=== PATIENT | male | born 1955 | race Caucasian/White ===

== ENCOUNTER 2023-05-30 18:35 | Emergency (ER) | payer OTHER, SELFPAY ==
--- NOTE | ~2023-05-30 | CT_ITS ---
EXAMINATION: CT cervical spine wo con DATE: 05/30/2023 20:07 INDICATION: fall head injury TECHNIQUE: Computed tomography (CT) of the cervical spine was performed without intravenous contrast. Automated exposure control and iterative reconstruction technique were employed. The dose-length pro duct was 317.30 mGy-cm. COMPARISON: None. FINDINGS: Vertebral Body Alignment: Intact. Craniocervical and atlantoaxial alignment: Moderate degenerative change. Alignment intact. Osseous structures/fracture: No evidence of a lytic or blastic process in the visualized spine. No e vidence of acute fracture. Trace left mastoid fluid, no erosion or fracture. Cervical soft tissues: The paraspinal soft tissues planes are maintained. Biapical pleural scarring. Degenerative changes: Degenerative changes, without severe neural foraminal or central canal narrowin g. IMPRESSION: No acute fracture or traumatic malalignment in the cervical spine. Reviewed, dictated and finalized at location K.
--- NOTE | ~2023-05-30 | CT_ITS ---
EXAMINATION: CT brain wo con DATE: 05/30/2023 20:02 INDICATION: head injury . TECHNIQUE: Computed tomography (CT) of the head was performed without intravenous contrast. The mA wa s adjusted according to patient size. Iterative reconstruction technique was employed. The dose-lengt h product was 605.33 mGy-cm. COMPARISON: None. FINDINGS: No acute intracranial hemorrhage or extra-axial fluid collection. No hydrocephalus, mass, or herniation. No acute ischemic infarct. Unremarkable dural venous sinus attenuation. No acute osseous abnormality. Left frontal/orbital soft tissue laceration and contusion. Trace left mastoid opacification, the remaining aerated spaces are clear. Moderate atrophy and chronic white matter change. Atherosclerotic intracranial calcification. Focal l eft caudate head lacunar infarct. Large old left MCA territory infarct. IMPRESSION: No acute intracranial process. Reviewed, dictated and finalized at location K.
[2023-05-30 18:31] VITALS: BP 144/82; PULSE 68; RESP 20; TEMP 36.5; O2SAT 100
[2023-05-30] MEDS: TETANUS,DIPHTHERIA,AC PERTUSSIS ADULT (0.5 ML) BOOSTRIX IM (19:52)
--- NOTE | 2023-05-30 21:30 | ED.GENADULT ---
HPI - General Adult General Chief complaint: Fall Stated complaint: fall, head lac Time Seen by Provider: 05/30/23 19:27 History of Present Illness HPI narrative: Patient 61-year-old gentleman who presents the emergency department with chief complaint of head injury. Patient was being facilitated in his wheelchair and fell striking his head. They report no loss of consciousness but the patient is on enoxaparin and Plavix patient is unsure of last tetanus status Related Data Home Medications Medication Instructions Recorded Confirmed acetaminophen 325 mg tablet 325 mg PO ONCE PRN Pain 05/30/23 05/30/23 citalopram 20 mg tablet (Celexa) 20 mg PO DAILY 05/30/23 05/30/23 clopidogrel 75 mg tablet 75 mg PO DAILY 05/30/23 05/30/23 enoxaparin 40 mg/0.4 mL 40 mg subcut DAILY 05/30/23 05/30/23 subcutaneous syringe ergocalciferol (vitamin D2) 1,250 1,250 mcg PO WEEKLY 05/30/23 05/30/23 mcg (50,000 unit) capsule (Drisdol) metoprolol succinate 25 mg 25 mg PO DAILY 05/30/23 05/30/23 tablet,extended release 24 hr rosuvastatin 40 mg tablet 40 mg PO DAILY 05/30/23 05/30/23 Allergies Allergy/AdvReac Type Severity Reaction Status Date / Time banana Allergy Hives Verified 05/30/23 18:57 No Known Drug Allergies AdvReac Unknown Verified 05/30/23 18:57 Review of Systems Review of Systems: A 10 system review of systems was completed on the patient and is negative except for what is stated in the HPI. Nursing and ancillary documentation was reviewed. Exam Narrative: GENERAL: Well-appearing, well-nourished, and in no acute distress. HEAD: Normocephalic, 3 superior laceration to the left eyebrow. EYES: PERRLA and EOMI. ENT: Nares clear, no rhinorrhea or epistaxis. Mucous membranes moist. NECK: Supple. CHEST: Clear to auscultation. No respiratory distress. HEART: Regular rate and rhythm. No murmur heard. Normal peripheral pulses. ABDOMEN: Soft, nontender, nondistended, normal active bowel sounds. EXTREMITIES: Normal range of motion. No edema. SKIN: Warm, dry, no rash. NEURO: No focal deficits. Alert and oriented x3. PSYCH: Normal mood and affect. Course Vital Signs Vital signs: Vital Signs Temperature 36.5 C 05/30/23 18:31 Pulse Rate 68 05/30/23 18:31 Respiratory Rate 20 05/30/23 18:31 Blood Pressure 144/82 H 05/30/23 18:31 Pulse Oximetry 100 05/30/23 18:31 Temperature 36.5 C 05/30/23 18:31 Pulse Rate 68 05/30/23 18:31 Respiratory Rate 20 05/30/23 18:31 Blood Pressure 144/82 H 05/30/23 18:31 Pulse Oximetry 100 05/30/23 18:31 Procedures Laceration Laceration 1: Date: 05/30/23 Time: 21:35 Site: face (Left eyebrow) Size (cm): 3 Description: linear Depth: simple, single layer Local Anesthetic: lidocaine 1% Amount of anesthesia used (mL): 5 Pre-repair: wound explored, irrigated and irrigated extensively ====== Skin Level ====== Skin layer closed with: prolene Size (cm): 5-0 Number of sutures: 7 Technique: simple, interrupted ====== Subcutaneous Layer ====== ====== Muscle Layer ====== ====== Tendon Layer ====== Medical Decision Making [facility] Narrative Medical decision making narrative: Differential diagnosis includes intracranial hemorrhage, cervical spine fracture, facial laceration CT head showed no evidence of intracranial trauma. CT C-spine showed no evidence of cervical spine fracture. The patient's lacerations were closed [facility] Vital Signs Vital Signs: Vital Signs Temperature 36.5 C 05/30/23 18:31 Pulse Rate 68 05/30/23 18:31 Respiratory Rate 20 05/30/23 18:31 Blood Pressure 144/82 H 05/30/23 18:31 Pulse Oximetry 100 05/30/23 18:31 Temperature 36.5 C 05/30/23 18:31 Pulse Rate 68 05/30/23 18:31 Respiratory Rate 20 05/30/23 18:31 Blood Pressure 144/82 H 05/30/23 18:31 P
[2023-05-31 00:27] VITALS: BP 140/84; PULSE 82; RESP 15; O2SAT 98
== END 2023-05-31 00:29 ==
PROVIDERS: Emergency Provider Emergency Medicine; PCP Hospitalist
DX: S01.91XA Laceration without foreign body of unspecified part of head, initial encounter (principal); Z79.01 Long term (current) use of anticoagulants; Z23 Encounter for immunization; W05.0XXA Fall from non-moving wheelchair, initial encounter
CPT/HCPCS: 12011; 70450; 72125; 90471; 90715; 99284

== ENCOUNTER 2023-06-10 12:21 | Emergency (ER) | payer OTHER, SELFPAY ==
[2023-06-10] VITALS (20 sets, daily range): BP systolic 126–150; BP diastolic 69–88; PULSE 81–113; RESP 17–23; TEMP 36.6; O2SAT 95–98
--- NOTE | ~2023-06-10 | CT_ITS ---
EXAMINATION: CT brain wo con DATE: 06/10/2023 13:06 INDICATION: Head injury TECHNIQUE: Computed tomography (CT) of the head was performed without intravenous contrast. Sagittal and coronal reconstructions were performed. The mA was adjusted according to patient size. Iterative reconstruction technique was employed. The dose-length product was 605.33 mGy-cm. COMPARISON: head CT dated 05/30/2023 FINDINGS: No fracture. Again seen is a large region of encephalomalacia involving the majority the left tempora l lobe extending to the left frontoparietal region consistent with sequela of chronic infarct in the left middle cerebral artery vascular distribution. No acute intracranial hemorrhage, acute infarction or abnormal extra axial fluid collection. Ventricles are normal and symmetric. No mass/mass effect. The orbits, paranasal sinuses and mastoid air cells are normal. IMPRESSION: 1. No acute intracranial process. 2. Stable appearance of a large region of encephalomalacia consistent with chronic infarct involving majority the left temporal lobe in the vascular displacement of the left middle cerebral artery. Reviewed, dictated and finalized at location A. IMPRESSION: 1. No acute intracranial process. 2. Stable appearance of a large region of encephalomalacia consistent with washer machine heath infarct involving majority the left temporal lobe in the vascular displacem ent of the left middle cerebral artery.
--- NOTE | ~2023-06-10 | XR_ITS ---
XR chest 2V DATE: 06/10/2023 13:11 INDICATION: Cough TECHNIQUE: AP and lateral views COMPARISON: None FINDINGS: Left anterior chest registered nurse cardiac device. Heart size is likely within normal range. There is mild aortic calcification and unfolding. No hilar or mediastinal enlargement. No pulmonary infiltrate or consolidation, pleural effusion or pulmonary vascular congestion or pneumo thorax is detected. Degenerative spurring of the thoracic spine. IMPRESSION: No active cardiopulmonary disease Reviewed, dictated and finalized at location B.
--- NOTE | 2023-06-10 12:35 | ECG_ITS ---
Measurements Intervals [place] Rate: 110 P: 61 WA: 176 QRS: -36 QRSD: 97 T: 64 QT: 326 QTc: 443 Interpretive Statements SINUS TACHYCARDIA PREVIOUS iNFERIOR AND ANTEROSEPTAL MYOCARDIAL INFARCTION , OF INDETERMINATE AGE [40+ ms Q WAVE AND/OR ST/T ABNORMALITY IN II/aVF] ABNORMAL ECG NO PREVIOUS ECG AVAILABLE FOR COMPARISON Electronically Signed On 06-11-2023 11:48:58 CDT by Nilo Steel M.D.
[2023-06-10 12:55] LABS: Basophils Percent Auto 0.1 % (0.2-1.2); Eosinophils Percent Auto 0.2 % (0-4.4); Hematocrit 40.2 % (42.0-52.0); Hemoglobin 13.4 g/dL (14.0-18.0); Immature Granulocyte Absolute 0.03 K/mm3 (0.00-0.031); Immature Granulocyte Percent A 0.3 % (0-0.5); Lymphocytes Absolute Auto 1.07 K/mm3 (0.9-3.2); Mean Corpuscular HGB Conc 33.3 g/dl (32-36); Mean Corpuscular Hemoglobin 30.5 pg (26-34); Mean Corpuscular Volume 91.4 fl (80-100); Mean Platelet Volume 9.3 fl (7.4-10.4); Monocytes Absolute Auto 1.2 K/mm3 (0.1-0.6); Monocytes Percent Auto 10.1 % (2.6-8.5); Neutrophils Absolute Auto 9.6 K/mm3 (1.3-6.7); Neutrophils Percent Auto 80.3 % (45.5-73.1); Platelet Count Result 268 k/mm3 (150-375); Red Cell Distribution Width 13.1 % (11.5-14.5)
[2023-06-10 12:58] LABS: Appearance Urine Cloudy (Clear); Bacteria Urine None Seen /hpf; Bilirubin Urine Negative (Negative); Blood Urine 3+ (Negative); Color Urine Yellow (Yellow); Glucose Urine UA Negative (Negative); Ketones Urine Negative (Negative); Leukocyte Esterase Ur Negative LEU/UL (Negative); Nitrate Urine Negative (Negative); Protein Urine 2+ mg/dL (Negative); RBC Urine 51-100 /hpf (0-2); Specific Grav Ur 1.023 (1.001-1.035); Squamous Epithelial Cell Urine None seen /hpf (Few); WBC Urine 0-5 /hpf; pH Urine 6.5 (5.0-9.0)
[2023-06-10 12:59] LABS: Add Urine Microscopic? YES
[2023-06-10 13:01] LABS: Alanine Aminotransferase 20 U/L (6-50); Albumin Level 3.7 g/dL (3.5-5.1); Alkaline Phosphatase 72 U/L (38-126); Anion Gap 10 mmol/L (8-16); Aspartate Amino Transferase 22 U/L (17-59); Bilirubin,Total 0.8 mg/dL (0.2-1.3); Blood Urea Nitrogen 25 mg/dL (9-20); Calcium 9.2 mg/dL (8.4-10.2); Carbon Dioxide 26 mmol/L (22-30); Chloride 99 mmol/L (98-107); Estimated CRCL calculation 50 ml/min; Estimated Glomerular Filt Rate 55; Glucose 169 mg/dL (65-110); Potassium 3.9 mmol/L (3.4-5.0); Sodium 135 mmol/L (137-145)
--- NOTE | 2023-06-10 14:24 | ED.FALL ---
HPI - Fall General Chief Complaint: Fall Stated Complaint: fall Time Seen by Provider: 06/10/23 13:31 History of Present Illness HPI Narrative: Patient is a 67-year-old male presenting after a fall. Patient resides at a nursing facility. He has been falling frequently lately. Today he was noted to fall forward strike his head on a wall and then slide down to the ground. He was actually seen here last week after a similar fall and he still has the stitches above his eyebrow. Patient is ANO x1 at baseline per his facility. He denies complaints. He tells me he just wants to go home. Related Data Home Medications Medication Instructions Recorded Confirmed acetaminophen 325 mg tablet 325 mg PO ONCE PRN Pain 05/30/23 05/30/23 citalopram 20 mg tablet (Celexa) 20 mg PO DAILY 05/30/23 05/30/23 clopidogrel 75 mg tablet 75 mg PO DAILY 05/30/23 05/30/23 enoxaparin 40 mg/0.4 mL 40 mg subcut DAILY 05/30/23 05/30/23 subcutaneous syringe ergocalciferol (vitamin D2) 1,250 1,250 mcg PO WEEKLY 05/30/23 05/30/23 mcg (50,000 unit) capsule (Drisdol) metoprolol succinate 25 mg 25 mg PO DAILY 05/30/23 05/30/23 tablet,extended release 24 hr rosuvastatin 40 mg tablet 40 mg PO DAILY 05/30/23 05/30/23 Allergies Allergy/AdvReac Type Severity Reaction Status Date / Time banana Allergy Hives Verified 05/30/23 18:57 No Known Drug Allergies AdvReac Unknown Verified 05/30/23 18:57 Review of Systems Review of Systems: All systems reviewed & are unremarkable except as noted in HPI and below Exam Narrative: GENERAL: Lying in bed in no acute distress, cooperative HEAD: Normocephalic, healed incision above left eyebrow with sutures still in place, healing ecchymosis below left eye EYES: PERRLA and EOMI. ENT: Nares clear, no rhinorrhea or epistaxis. Mucous membranes dry NECK: Supple. CHEST: Clear to auscultation. No respiratory distress. HEART: Regular rate and rhythm ABDOMEN: Soft, nontender, nondistended EXTREMITIES: Normal range of motion. No edema. SKIN: Warm, dry, no rash. NEURO: No focal deficits. Alert and oriented x1. At baseline PSYCH: Normal mood Course Vital Signs Vital signs: Vital Signs Temperature 97.9 F 06/10/23 12:18 Pulse Rate 113 H 06/10/23 12:18 Respiratory Rate 21 H 06/10/23 12:18 Blood Pressure 133/88 06/10/23 12:18 Pulse Oximetry 98 06/10/23 12:18 Oxygen Delivery Room Air 06/10/23 12:18 Temperature 97.9 F 06/10/23 12:18 Pulse Rate 81 06/10/23 19:34 Respiratory Rate 18 06/10/23 19:34 Blood Pressure 150/86 H 06/10/23 19:34 Pulse Oximetry 98 06/10/23 19:34 Oxygen Delivery Room Air 06/10/23 12:18 MDM - Fall MDM Narrative Medical decision making narrative: Patient is a 67-year-old male presenting after a witnessed fall at his nursing facility. Patient is a bit tachycardic, otherwise vitals are within normal limits. Exam remarkable for the above. He does appear dry on exam. We will start some fluids, CT brain, basic labs. Blood work without significant abnormalities. Does appear dry on his labs as well. Fluids are ongoing. CT brain and chest x-ray without acute abnormalities. The sutures were removed at bedside. Patient's nursing facility was contacted and reports that he is at his baseline mental status. Given the reassuring work-up, feel he is safe for discharge for outpatient management. Appropriate return precautions given. Discharged in stable condition. Differential Diagnosis Differential diagnosis: Likely other (fall, closed head injury, dehydration) Medical Records Attestation: I reviewed the patient's medical records. Lab Data Attestation: I reviewed the patient's lab results. 06/10/23 12:37 06/10/23 12:37 Labs: Lab Results 06/10/23 06/10/23 Range/Units 12:37 15:12 WBC 12.0 H (4.5-10.0) K/mm3 RBC 4.40 L (4.6-6.20) M/mm3 Hgb 13.4 L (14.0-18.0) g/dL Hct 40.2 L (42.0-52.0) % MCV 91.4 (80-10
[2023-06-10] MEDS: SODIUM CHLORIDE 0.9% IV 1,000 ML 999 ML IV CONT (14:48)
[2023-06-10 15:57] LABS: Influenza A QL RT-PCR Negative (Negative); Influenza B QL RT-PCR Negative (Negative); SARS-CoV-2 RNA PCR Negative (Negative)
--- NOTE | 2023-06-10 17:23 | PC.NURSE ---
Attempted to call report to [facility] with no answer.
--- NOTE | 2023-06-10 17:39 | PC.NURSE ---
Spoke with Monica at [facility] and informed her that patient was being discharged back to facility.
== END 2023-06-10 19:48 ==
PROVIDERS: Emergency Medicine; Emergency Provider Emergency Medicine; PCP Hospitalist
DX: E86.0 Dehydration (principal); Z20.822 Contact with and (suspected) exposure to COVID-19; W19.XXXA Unspecified fall, initial encounter
CPT/HCPCS: 36415; 70450; 71046; 80053; 81001; 85025; 87636; 93005; 96360; 96361; 99284; J7030

== ENCOUNTER 2023-08-02 12:53 | Emergency (ER) | payer OTHER, SELFPAY ==
--- NOTE | ~2023-08-02 | CT_ITS ---
Non-contrast Head CT History: Status post fall COMPARISON: 06/10/2023 Technique: Axial non-contrast imaging of the brain was performed. Dose reduction technique was used on this scan by utilizing automated exposure control and iterative reconstruction technique. The dose -length product (DLP) was 605.33 mGy-cm. Findings: There is no evidence of intracranial hemorrhage, mass lesion, or acute infarct. Large left MCA distribution chronic infarct is unchanged. The ventricles and subarachnoid spaces are normal in size. The calvarium appears normal. The visualized paranasal sinuses and mastoid air cells are tony ar. Impression: No acute abnormality seen. Stable large chronic left MCA distribution infarct. Reviewed, dictated and finalized at location . Impression: No acute abnormality seen. Stable large chronic left MCA distribution infarct.
--- NOTE | ~2023-08-02 | CT_ITS ---
EXAMINATION: CT cervical spine wo con DATE: 08/02/2023 13:31 INDICATION: Fall. TECHNIQUE: Computed tomography (CT) of the cervical spine was performed without intravenous contrast. Automated exposure control and iterative reconstruction technique were employed. Exam dose: 385.79 mGy-cm total exam DLP. COMPARISON: None FINDINGS: There is reversal of cervical curvature which may be due to muscle spasm and/or positioning . Mild levoscoliosis. C1 and C2 are normally aligned and the odontoid process is intact. No fracture or dislocation or lock ed facet or prevertebral soft tissue swelling. Mild degenerative disc disease and C3-4 and C4-5. Moderately severe degenerative disc disease at C5-6 and C6-7 including moderately prominent posterior spurring at C5-6. There is prominent degenerative change at numerous apophyseal joints. Prominent uncovertebral joint spurring at C5-6 and C6-7. IMPRESSION: Reversal of cervical curvature mild levoscoliosis Prominent cervical spondylosis No fracture or dislocation or locked facet Reviewed, dictated and finalized at Location A. Reviewed, dictated and finalized at location B.
--- NOTE | ~2023-08-02 | XR_ITS ---
XR hip BI 2V w AP pelvis DATE: 08/02/2023 13:38 INDICATION: Recent fall. Injury. TECHNIQUE: AP pelvis. AP and lateral views of each hip. COMPARISON: None FINDINGS: Normal alignment at the pubic symphysis and sacroiliac joints. No pelvic fracture or bone d estruction. Hip joint spaces are symmetric and well preserved. No fracture, dislocation, avascular necrosis or kristian ne destruction of either hip is detected. IMPRESSION: Negative Reviewed, dictated and finalized at location B. IMPRESSION: Negative
[2023-08-02 12:56] VITALS: BP 112/75; PULSE 99; RESP 20; TEMP 36.7; O2SAT 99
[2023-08-02 14:51] VITALS: BP 114/84; PULSE 97; RESP 16; TEMP 36.7; O2SAT 100
--- NOTE | 2023-08-02 15:45 | PC.NURSE ---
pt requested that I call pt NETO Francois @[phone] to request him to come here. called @[phone] with no answer and no voicemail set up to leave a message.
--- NOTE | 2023-08-02 16:12 | ED.FALL ---
HPI - Fall General Chief Complaint: Fall Stated Complaint: ground level fall Time Seen by Provider: 08/02/23 16:11 History of Present Illness HPI Narrative: Patient is a 67-year-old male who is alert and oriented x2 at baseline here after reported fall. Patient states that he fell, does not remember any of the details. Per nursing patient had a fall with head injury complaining of some right hip pain. Patient currently states that both of his hips hurt, is unsure about anything else. He is currently requesting to be discharged home. He denies any pain anywhere other than his hips. Related Data Home Medications Medication Instructions Recorded Confirmed acetaminophen 325 mg tablet 325 mg PO ONCE PRN Pain 05/30/23 05/30/23 citalopram 20 mg tablet (Celexa) 20 mg PO DAILY 05/30/23 05/30/23 clopidogrel 75 mg tablet 75 mg PO DAILY 05/30/23 05/30/23 enoxaparin 40 mg/0.4 mL 40 mg subcut DAILY 05/30/23 05/30/23 subcutaneous syringe ergocalciferol (vitamin D2) 1,250 1,250 mcg PO WEEKLY 05/30/23 05/30/23 mcg (50,000 unit) capsule (Drisdol) metoprolol succinate 25 mg 25 mg PO DAILY 05/30/23 05/30/23 tablet,extended release 24 hr rosuvastatin 40 mg tablet 40 mg PO DAILY 05/30/23 05/30/23 Allergies Allergy/AdvReac Type Severity Reaction Status Date / Time banana Allergy Hives Verified 05/30/23 18:57 No Known Drug Allergies AdvReac Unknown Verified 05/30/23 18:57 Review of Systems Review of Systems: ROS unobtainable: Yes unobtainable due to mental status (dementia) Exam Narrative: GENERAL: Well-appearing, well-nourished, and in no acute distress. HEAD: Normocephalic, atraumatic. EYES: PERRLA and EOMI. ENT: Nares clear. Mucous membranes moist. NECK: Supple. No midline c-spine tenderness CHEST: Clear to auscultation. No respiratory distress. No chest wall tenderness HEART: Regular rate and rhythm. Normal peripheral pulses. ABDOMEN: Soft, nontender, nondistended. EXTREMITIES: Normal range of motion. No edema. No midline thoracic or lumbar tenderness. Bilateral hip tenderness with normal ROM. Remainder of upper and lower extremities atraumatic. SKIN: Warm, dry, no rash. NEURO: No focal deficits. Alert and oriented x2 PSYCH: flat affect Course Course Emergency Course: Chart review performed. Patient here with a fall. He reportedly tested covid positive on 07/31. Triage vitals normal. Triage workup shows stable left MCA, no acute abnormalities seen. CT c-spine negative. Hip xrays negative. Patient seen evaluated, in no acute distress. With poor historian, physical exam only positive for bilateral hip tenderness however he has full range of motion and normal PMS distal to the injury. Discussed normal workup. He is requesting be discharged home. Believe he is stable to be returned to his facility at this time. Nursing will work on transportation. Vital Signs Vital signs: Vital Signs Temperature 98.1 F 08/02/23 12:56 Pulse Rate 99 08/02/23 12:56 Respiratory Rate 20 08/02/23 12:56 Blood Pressure 112/75 08/02/23 12:56 Pulse Oximetry 99 08/02/23 12:56 Temperature 98.0 F 08/02/23 14:51 Pulse Rate 79 08/02/23 16:45 Respiratory Rate 16 08/02/23 16:45 Blood Pressure 119/78 08/02/23 16:45 Pulse Oximetry 100 08/02/23 16:45 MDM - Fall Imaging Data Radiologist's impression: XR hip BI 2V w AP pelvis DATE: 08/02/2023 13:38 INDICATION: Recent fall. Injury.? TECHNIQUE: AP pelvis. AP and lateral views of each hip.? COMPARISON: None? FINDINGS: Normal alignment at the pubic symphysis and sacroiliac joints. No pelvic fracture or bone destruction. Hip joint spaces are symmetric and well preserved. No fracture, dislocation, avascular necrosis or bone destruction of either hip is detected.? IMPRESSION: Negative? Reviewed, dictated and finalized at location B. Electronically signed by Rosendo Murphy M.D. on
[2023-08-02 16:45] VITALS: BP 119/78; PULSE 79; RESP 16; O2SAT 100
--- NOTE | 2023-08-02 16:59 | PC.NURSE ---
called [facility] @[phone] and spoke to Iona who is caring for pt to give update, report, and eta back to facility. all questions answered.
[2023-08-02 18:35] VITALS: BP 111/75; PULSE 67; RESP 15; TEMP 36.7; O2SAT 100
[2023-08-02 20:49] VITALS: BP 118/80; PULSE 61; RESP 16; TEMP 36.8; O2SAT 100
== END 2023-08-02 20:31 ==
PROVIDERS: Emergency Provider Student in an Organized Health Care Education/Training Program; PCP Hospitalist
DX: M25.552 Pain in left hip (principal); M25.551 Pain in right hip; S09.90XA Unspecified injury of head, initial encounter; W19.XXXA Unspecified fall, initial encounter; Z79.02 Long term (current) use of antithrombotics/antiplatelets
CPT/HCPCS: 70450; 72125; 73521; 99284

== ENCOUNTER 2023-10-30 08:17 | Inpatient (IN) | payer MEDICARE, SELFPAY ==
[2023-10-30] VITALS (28 sets, daily range): BP systolic 101–117; BP diastolic 71–79; PULSE 72–115; RESP 7–26; TEMP 36.3–36.8; O2SAT 96–100
--- NOTE | ~2023-10-30 | XR_ITS ---
EXAMINATION: XR chest 1V portable DATE: 10/30/2023 11:02 INDICATION: Seizures TECHNIQUE: frontal view of the chest was obtained. COMPARISON: Chest radiograph dated 06/10/2023 FINDINGS: The lungs are clear with no focal airspace opacities, pulmonary edema, pleural effusion or pneumothor ax. The cardiomediastinal silhouette is normal. Left pectoral implantable residential monitor. IMPRESSION: 1. No acute cardiopulmonary disease. Reviewed, dictated and finalized at location A. FITTER APPRENTICE
--- NOTE | ~2023-10-30 | CT_ITS ---
EXAMINATION: CTA brain carotid DATE: 11/01/2023 14:55 INDICATION: Acute infarct in left caudate nucleus. TECHNIQUE: Computed tomographic angiography (CTA) of the head was performed without and with 100 mL O mnipaque-350 intravenous contrast. CTA of the neck was performed with intravenous contrast. Automated exposure control and iterative reconstruction technique were employed. The dose-length product was 1 967.38 mGy-cm. Maximum intensity projection and volume rendered 3D-reconstructions were created by maxx lane technologist on a separate workstation. COMPARISON: Head CT 10/30/2023, brain MRI 11/01/2023 FINDINGS: HEAD CTA: There is an old infarct involving left frontotemporal parietal region, left insula, left in ternal capsule, and the left basal ganglia. There is no intracranial hemorrhage, acute infarction, or abnormal intracranial mass lesion. There is ex vacuo dilatation of body of left lateral ventricle. T here is mild mucosal thickening in the ethmoid sinuses. The orbits are normal. There is a trace right mastoid effusion. There is cerumen in left external auditory canal. Left vertebral artery is dominan t. There is no significant stenosis of basilar artery or the posterior cerebral arteries. Right poste rior communicating artery is normal. A left posterior communicating artery is not identified. There i s no significant stenosis of the intracranial internal carotid arteries or anterior or middle cerebra l arteries. Anterior communicating artery is normal. There is no aneurysm. NECK CTA: There is mild scarring at the lung apices. There are no pathologically enlarged lymph nodes . There is no significant stenosis of the vertebral arteries. There is plaque in the proximal interna l carotid arteries. There is 0% stenosis of the proximal right internal carotid artery relative to no rmal distal artery lumen diameter (NASCET criteria). There is 0% stenosis of the proximal left photography intern al carotid artery relative to normal distal artery lumen diameter. There is severe cervical spondylos is. IMPRESSION: 1. Large old infarct in the expected distribution of left middle cerebral artery. 2. No aneurysm or significant intracranial arterial stenosis. 3. 0% stenosis of the proximal internal carotid arteries relative to normal distal artery lumen diame ters (NASCET criteria). Reviewed, dictated and finalized at location E. FACTURING ENGINEERING MANAGER IMPRESSION: 1. Large old infarct in the expected distribution of left middle cerebral arter y. 2. No aneurysm or significant intracranial arterial stenosis. 3. 0% stenosis of the proximal internal carotid arteries relative to normal dis susy artery lumen diameters (NASCET criteria).
--- NOTE | ~2023-10-30 | CT_ITS ---
EXAMINATION: CT brain wo con DATE: 10/30/2023 09:44 INDICATION: Seizure. History of cerebrovascular accident. TECHNIQUE: Computed tomography (CT) of the head was performed without intravenous contrast. The mA wa s adjusted according to patient size. Iterative reconstruction technique was employed. Exam dose: 60 5.33 mGy-cm total exam DLP. COMPARISON: 08/02/2023 CT brain FINDINGS: Large chronic area of encephalomalacia within the left middle cerebral artery distribution consistent with old infarct. Bilateral carotid siphon internal carotid artery calcifications. No intracranial mass lesion or hemorrhage, midline shift or mass effect. No recent cerebrovascular ac cident is detected. No subdural or epidural hematoma. There is moderate cerebral volume loss. The paranasal sinuses and mastoid air cells are unremarkable. No fracture or bone destruction of the cranial vault. IMPRESSION: Stable large chronic left middle cerebral artery territory infarct No acute intracranial finding or significant change since 08/02/2023 Reviewed, dictated and finalized at Location A. Reviewed, dictated and finalized at location B. TY AND OCCUPATIONAL HEALTH MANAGER
--- NOTE | ~2023-10-30 | MR_ITS ---
EXAMINATION: MR brain/brain stem wo/w con DATE: 11/01/2023 08:45 INDICATION: Seizure. TECHNIQUE: Magnetic resonance imaging (MRI) of the brain and brainstem was performed without and with 14 mL MultiHance intravenous contrast. COMPARISON: Head CT 10/30/2023 FINDINGS: There is an old infarct involving left frontotemporal parietal region, left insula, left in ternal capsule, and left basal ganglia with old blood products. There is an acute infarct involving t he left caudate nucleus. There is chronic Wallerian degeneration involving the left-sided corticospin al tracts in the brainstem. There is no abnormal mass lesion. There is mild ex vacuo dilatation of le ft lateral ventricle. There is mild mucosal thickening in the ethmoid sinuses. The orbits are normal. There are trace mastoid effusions. IMPRESSION: 1. Acute infarct involving the left caudate nucleus. 2. Old infarct involving the left frontotemporal parietal region, left insula, left internal capsule, and left basal ganglia. Reviewed, dictated and finalized at location E. PRESIDENT SALES
--- NOTE | 2023-10-30 08:22 | ECG_ITS ---
Measurements Intervals [place] Rate: 112 P: 65 ID: [id number] QRS: -56 QRSD: 92 T: 69 QT: 345 QTc: 473 Interpretive Statements SINUS TACHYCARDIA LEFT AXIS DEVIATION BORDERLINE R WAVE PROGRESSION, ANTERIOR LEADS INFERIOR INFARCT, AGE INDETERMINATE BASELINE WANDER- I, III, AVL ABNORMAL ECG COMPARED TO ECG 06/10/2023 12:25:06 NO SIGNIFICANT CHANGES Electronically Signed On 10-30-2023 8:29:50 HYBRID TECHNOLOGIST by Donnell Roman D.O.
[2023-10-30 08:39] LABS: Basophils Percent Auto 0.3 % (0.2-1.2); Eosinophils Absolute Auto 0.2 K/mm3 (0-0.3); Eosinophils Percent Auto 2.2 % (0-4.4); Hematocrit 48.6 % (42.0-52.0); Hemoglobin 15.4 g/dL (14.0-18.0); Immature Granulocyte Absolute 0.02 K/mm3 (0.00-0.031); Immature Granulocyte Percent A 0.3 % (0-0.5); Lymphocytes Absolute Auto 2.91 K/mm3 (0.9-3.2); Lymphocytes Percent Auto 38.4 % (18.3-44.2); Mean Corpuscular HGB Conc 31.7 g/dl (32-36); Mean Corpuscular Hemoglobin 29.6 pg (26-34); Mean Corpuscular Volume 93.5 fl (80-100); Mean Platelet Volume 9.2 fl (7.4-10.4); Monocytes Absolute Auto 0.7 K/mm3 (0.1-0.6); Neutrophils Absolute Auto 3.8 K/mm3 (1.3-6.7); Neutrophils Percent Auto 49.8 % (45.5-73.1); Platelet Count Result 290 k/mm3 (150-375); White Blood Count 7.6 K/mm3 (4.5-10.0)
--- NOTE | 2023-10-30 08:44 | ED.SEIZURE ---
HPI - Seizure General Chief Complaint: Seizure Stated Complaint: postictal Time Seen by Provider: 10/30/23 08:43 History of Present Illness HPI Narrative: Patient is a 68-year-old female who presents to the emergency department this morning from her extended care facility after a seizure episode. Per EMS report, patient does have a known history of seizure disorder. [facility] this time that patient was applied blood bubbles with her mouth. Upon EMS arrival, they did note small amount of dried blood around the patient's mouth. The remainder of the history of present illness and review of systems limited secondary to the patient's current postictal state. Related Data Home Medications Medication Instructions Recorded Confirmed acetaminophen 325 mg tablet 325 mg PO ONCE PRN Pain 05/30/23 05/30/23 citalopram 20 mg tablet (Celexa) 20 mg PO DAILY 05/30/23 05/30/23 clopidogrel 75 mg tablet 75 mg PO DAILY 05/30/23 05/30/23 enoxaparin 40 mg/0.4 mL 40 mg subcut DAILY 05/30/23 05/30/23 subcutaneous syringe ergocalciferol (vitamin D2) 1,250 1,250 mcg PO WEEKLY 05/30/23 05/30/23 mcg (50,000 unit) capsule (Drisdol) metoprolol succinate 25 mg 25 mg PO DAILY 05/30/23 05/30/23 tablet,extended release 24 hr rosuvastatin 40 mg tablet 40 mg PO DAILY 05/30/23 05/30/23 Allergies Allergy/AdvReac Type Severity Reaction Status Date / Time banana Allergy Hives Verified 10/30/23 08:37 Review of Systems Review of Systems: Unable to obtain full review of systems secondary to the patient's current postictal state. Exam Narrative: General: Postictal, afebrile, in no acute distress. HEENT: PERRL, no rhinorrhea, no post nasal drip, oropharynx clear, small tongue puncture wound. Neck: Trachea midline, no JVD, no lymphadenopathy. Cardiovascular: Tachycardic with regular rhythm, no murmurs, rubs or gallops, no peripheral edema. Respiratory: Clear to auscultation bilaterally, no tachypnea, no wheezing, no rhonchi, no rubs, no respiratory distress. Abdomen: Soft, nontender, nondistended, no rebound, no guarding, no peritoneal signs. Musculoskeletal: No joint swelling or deformity, normal muscle tone. Skin: No rashes or petechia, no signs of infection. Neurological: Postictal, baseline A&O x1 per [facility] staff, unable to assess neurological exam at this time. Course Vital Signs Vital signs: Vital Signs Temperature 98.3 F 10/30/23 08:16 Pulse Rate 115 H 10/30/23 08:16 Respiratory Rate 19 10/30/23 08:16 Blood Pressure 117/74 10/30/23 08:16 Pulse Oximetry 98 10/30/23 08:16 Oxygen Delivery Room Air 10/30/23 08:16 Temperature 97.8 F 10/30/23 10:44 Pulse Rate 94 10/30/23 10:44 Respiratory Rate 18 10/30/23 10:44 Blood Pressure 108/71 10/30/23 10:44 Pulse Oximetry 96 10/30/23 10:44 Oxygen Delivery Room Air 10/30/23 08:22 MDM - Seizure MDM Narrative Medical decision making narrative: The patient was evaluated by myself in the emergency department. History is obtained from EMS and physical exam was performed. External medical records were reviewed at this time. IV was established and pertinent tests were ordered. Patient's brother, Alessandro, did present to the emergency department and did inform me that he does not believe that the patient has a history of a seizure disorder. Patient is more around this time, following my commands and answering my questions. Brother states that patient is back to his normal baseline. Patient was administered 1g of IV Keppra at this time. EKG was obtained which revealed sinus tachycardia rate of 112 beats per minute. No ST changes, T wave inversions or evidence of acute ischemia. EKG was independently interpreted by me and is currently pending official cardiology read. Laboratory results obtained revealing no acute process. Magnesium level currently pending. Imaging studies obtained included CT brain without IV contrast which was independently
[2023-10-30] MEDS: levETIRAcetam 1000MG/NACL100ML 1,000 MG/100 ML BAG 400 MG IVPB (08:45)
[2023-10-30 08:51] LABS: Partial Thromboplastin Time 26.3 SECONDS (22.3-36.8)
[2023-10-30 09:08] LABS: Appearance Urine Clear (Clear); Bacteria Urine None Seen /hpf; Bilirubin Urine Negative (Negative); Blood Urine Trace (Negative); Color Urine Yellow (Yellow); Glucose Urine UA Negative (Negative); Ketones Urine Negative (Negative); Leukocyte Esterase Ur Negative LEU/UL (Negative); Nitrate Urine Negative (Negative); Protein Urine 1+ mg/dL (Negative); Specific Grav Ur 1.022 (1.001-1.035); Squamous Epithelial Cell Urine None seen /hpf (Few); Urobilinogen Urine 0.2 mg/dL (<2.0); WBC Urine 0-5 /hpf; pH Urine 5.5 (5.0-9.0)
[2023-10-30 09:09] LABS: Add Urine Microscopic? YES
[2023-10-30 09:12] LABS: Alanine Aminotransferase 32 U/L (6-50); Albumin Level 3.9 g/dL (3.5-5.1); Alkaline Phosphatase 57 U/L (38-126); Anion Gap 13 mmol/L (8-16); Aspartate Amino Transferase 32 U/L (17-59); Bilirubin,Total 0.7 mg/dL (0.2-1.3); Blood Urea Nitrogen 20 mg/dL (9-20); Calcium 9.1 mg/dL (8.4-10.2); Carbon Dioxide 20 mmol/L (22-30); Chloride 103 mmol/L (98-107); Estimated CRCL calculation 71 ml/min; Estimated Glomerular Filt Rate > 60; Glucose 153 mg/dL (65-110); Potassium 4.2 mmol/L (3.4-5.0); Sodium 136 mmol/L (137-145)
--- NOTE | 2023-10-30 09:36 | PC.NURSE ---
Pt to CT
[2023-10-30 11:34] LABS: Magnesium 2.2 mg/dL (1.6-2.3)
--- NOTE | 2023-10-30 12:41 | ADMGEN ---
This patient, Sidney Mcgill, was admitted to [facility] Surg Room 315-01. Patient/family oriented to hospital policies and general routines including ID bracelet, bed and alarms, visiting hours, pain management, procedures, bathroom and other care routines, personal items, smoking policy, room service/diet, and visiting hours. Information on how to activate the Rapid Response Team has been discussed. Patient/Family are encouraged to report perceived risks to care and to ask questions if they do not understand what they are told or what they should do.
--- NOTE | 2023-10-30 13:09 | PM.IMHP ---
H&P: HPI History of Present Illness Date/Time: 10/30/23 13:09 Chief Complaint: Seizure Narrative: 68 y/o M presents here with new onset seizures with PMH of CVA, anxiety/depression, RA, Alzheimer's, HTN, HLD, and vitamin D deficiency. Patient is currently residing at [facility]. He was found there this morning with blood in his mouth and increased alteration around 0730. Tranported here via EMS. Per review of paperwork from facility, patient does not have a medical history of seizures and is not currently on any medications for seizures. ED provider also discussed patient's medical history with the patient's brother, Alessandro, who also believed patient did not have a history. Patient is A/Ox1-2 at baseline with PMH of CVA and Alzheimer's. While in ED he returned to this baseline. Patient does not remember events. Is currently reporting fatigue, increased confusion, and R hand tenderness. No obvious signs of trauma to his right upper extremity or hand. Denies any recent illnesses. Denies any other pain. Confirmed history of CVA. Patient believes his RUE is weak at baseline. Additional history is limited due to patient's baseline mentation. ED work up showed WBC and Hgb WNL, mild hyponatremia with sodium of 136, creatinine of 0.9, initial glucose 118 and repeat 153. UA unremarkable. Head CT showed stable large chronic left middle cerebral artery territory infarct, otherwise no acute intracranial findings or significant changes since July of 2023. CXR also unremarkable. EKG showed no significant changes compared to prior in May of 2023. Review of Systems Review of Systems: limited, endorsed fatigue, increased confusion, right hand discomfort. All systems reviewed & are unremarkable except as noted in HPI and below ROS unobtainable: Yes unobtainable due to mental status PMFSH Past Medical History Medical History Alzheimer's dementia Anxiety and depression CVA (cerebral vascular accident) L middle cerebral artery Gait instability HLD (hyperlipidemia) HTN (hypertension) Muscle weakness Rheumatoid arthritis Vitamin D deficiency Social History Social History Social History: [facility] Currently DNR. Smoking status: Unknown if ever smoked Alcohol intake: unknown Substance use: unknown Spiritual care concerns: No Meds Home Medications and Allergies Home Medications Medication Instructions Recorded Confirmed Type acetaminophen 325 mg tablet See Rx Instructions .Route 05/30/23 10/30/23 History .COMPLEX PRN Pain citalopram 20 mg tablet (Celexa) 20 mg PO DAILY 05/30/23 10/30/23 History clopidogrel 75 mg tablet 75 mg PO DAILY 05/30/23 10/30/23 History enoxaparin 40 mg/0.4 mL 40 mg subcut DAILY 05/30/23 10/30/23 History subcutaneous syringe ergocalciferol (vitamin D2) 1,250 1,250 mcg PO WEEKLY 05/30/23 10/30/23 History mcg (50,000 unit) capsule (Drisdol) metoprolol succinate 25 mg 25 mg PO DAILY 05/30/23 10/30/23 History tablet,extended release 24 hr rosuvastatin 40 mg tablet 40 mg PO DAILY 05/30/23 10/30/23 History lorazepam 0.5 mg tablet 0.5 mg PO DAILY 10/30/23 10/30/23 History lorazepam 0.5 mg tablet 0.5 mg PO Q8-10H PRN Anxiety 10/30/23 10/30/23 History Allergies Allergy/AdvReac Type Severity Reaction Status Date / Time banana Allergy Hives Verified 10/30/23 12:50 Vital Signs Vital Signs - 24 hr 10/30/23 08:16 10/30/23 08:22 10/30/23 08:22 Temperature 98.3 F Pulse Rate 115 H 113 H Respiratory Rate 19 22 H Blood Pressure 117/74 Pulse Oximetry 98 100 Oxygen Delivery Room Air Room Air 10/30/23 08:30 10/30/23 08:31 10/30/23 08:45 Temperature Pulse Rate 108 H 109 H 95 Respiratory Rate 26 H 17 22 H Blood Pressure 105/76 Pulse Oximetry 99 99 98 Oxygen Delivery 10/30/23 09:00 10/30/23
[2023-10-30] MEDS: METOPROLOL SUCCINATE EXT REL 25 MG TABCR PO (16:09)
[2023-10-30] MEDS: ROSUVASTATIN 10 MG TABLET 40 MG PO (16:10)
[2023-10-30] MEDS: SODIUM CHLORIDE 0.9% IV 1,000 ML 100 ML IV CONT (16:10)
[2023-10-30] MEDS: CLOPIDOGREL BISULFATE 75 MG TABLET PO (16:10)
[2023-10-30] MEDS: CITALOPRAM HYDROBROMIDE 20 MG TABLET PO (16:10)
[2023-10-30 19:54] LABS: Influenza A QL RT-PCR Negative (Negative); Influenza B QL RT-PCR Negative (Negative); RSV RNA, RT-PCR Negative (Negative); SARS-CoV-2 RNA PCR Positive (Negative)
[2023-10-30] MEDS: ACETAMINOPHEN 325 MG TABLET 650 MG PO (20:40)
[2023-10-30] MEDS: LORazepam (*CRX) 0.5 MG TABLET PO (20:41)
[2023-10-30] MEDS: REMDESIVIR 200 MG/NS 250 ML 200 MG/250 ML BAG 250 MG IVPB (21:37)
[2023-10-31] VITALS (9 sets, daily range): BP systolic 96–107; BP diastolic 46–67; PULSE 54–73; RESP 12–16; TEMP 36.3–36.8; O2SAT 98–100
[2023-10-31] MEDS: ACETAMINOPHEN 325 MG TABLET 650 MG PO ×2 (05:32→16:37)
[2023-10-31 06:58] LABS: Basophils Percent Auto 0.2 % (0.2-1.2); Eosinophils Absolute Auto 0.1 K/mm3 (0-0.3); Eosinophils Percent Auto 1.9 % (0-4.4); Hemoglobin 13.7 g/dL (14.0-18.0); Immature Granulocyte Absolute 0.01 K/mm3 (0.00-0.031); Immature Granulocyte Percent A 0.2 % (0-0.5); Lymphocytes Absolute Auto 1.54 K/mm3 (0.9-3.2); Lymphocytes Percent Auto 28.7 % (18.3-44.2); Mean Corpuscular HGB Conc 32.6 g/dl (32-36); Mean Corpuscular Hemoglobin 29.7 pg (26-34); Mean Corpuscular Volume 91.1 fl (80-100); Mean Platelet Volume 9.3 fl (7.4-10.4); Monocytes Absolute Auto 0.6 K/mm3 (0.1-0.6); Monocytes Percent Auto 11.7 % (2.6-8.5); Neutrophils Absolute Auto 3.1 K/mm3 (1.3-6.7); Neutrophils Percent Auto 57.3 % (45.5-73.1); Platelet Count Result 232 k/mm3 (150-375); Red Blood Count 4.61 M/mm3 (4.6-6.20); Red Cell Distribution Width 12.9 % (11.5-14.5); White Blood Count 5.4 K/mm3 (4.5-10.0)
[2023-10-31 07:13] LABS: Alanine Aminotransferase 24 U/L (6-50); Albumin Level 3.5 g/dL (3.5-5.1); Alkaline Phosphatase 56 U/L (38-126); Anion Gap 6 mmol/L (8-16); Aspartate Amino Transferase 24 U/L (17-59); Bilirubin,Total 0.4 mg/dL (0.2-1.3); Blood Urea Nitrogen 19 mg/dL (9-20); Calcium 8.6 mg/dL (8.4-10.2); Carbon Dioxide 27 mmol/L (22-30); Chloride 105 mmol/L (98-107); Estimated CRCL calculation 79 ml/min; Estimated Glomerular Filt Rate > 60; Glucose 97 mg/dL (65-110); Magnesium 1.9 mg/dL (1.6-2.3); Potassium 3.8 mmol/L (3.4-5.0); Sodium 138 mmol/L (137-145)
[2023-10-31 07:34] LABS: Hemoglobin A1C 5.6 % (<5.7)
[2023-10-31 08:33] LABS: Free T4 Free Thyroxine Reflex 0.88 ng/dL (0.78-2.19)
[2023-10-31] MEDS: METOPROLOL SUCCINATE EXT REL 25 MG TABCR PO (09:12)
[2023-10-31] MEDS: CLOPIDOGREL BISULFATE 75 MG TABLET PO (09:12)
[2023-10-31] MEDS: LORazepam (*CRX) 0.5 MG TABLET PO (09:12)
[2023-10-31] MEDS: ROSUVASTATIN 10 MG TABLET 40 MG PO (09:12)
[2023-10-31] MEDS: CITALOPRAM HYDROBROMIDE 20 MG TABLET PO (09:12)
[2023-10-31] MEDS: ENOXAPARIN 40 MG/0.4 ML SYRINGE SUB-Q (09:16)
[2023-10-31 09:35] LABS: Total Triiodothyronine (T3) 1.17 NG/ML (0.97-1.69)
--- NOTE | 2023-10-31 09:39 | PM.IMPN ---
Progress Note: A&P Assessment and Plan (1) Generalized seizure: Code(s): R56.9 - Unspecified convulsions Status: Acute (2) HTN (hypertension): Qualifiers: Hypertension type: primary hypertension Qualified Code(s): I10 - Essential (primary) hypertension Code(s): I10 - Essential (primary) hypertension Status: Acute Plan 68 y/o M presents here with new onset seizures with PMH of CVA, anxiety/depression, RA, Alzheimer's, HTN, HLD, and vitamin D deficiency. Patient is currently residing at [facility]. He was found there with blood in his mouth and increased alteration around 0730. Tranported here via EMS. Per review of paperwork from facility, patient does not have a medical history of seizures and is not currently on any medications for seizures. ED provider also discussed patient's medical history with the patient's brother, Alessandro, who also believed patient did not have a history. Patient is A/Ox1-2 at baseline with PMH of CVA and Alzheimer's. While in ED he returned to this baseline. Patient does not remember events.? Denies any recent illnesses. Denies any other pain. Confirmed history of CVA. Patient believes his RUE is weak at baseline. Additional history is limited due to patient's baseline mentation. ED work up showed WBC and Hgb WNL, mild hyponatremia with sodium of 136, creatinine of 0.9, initial glucose 118 and repeat 153.? UA unremarkable.? Head CT showed stable large chronic left middle cerebral artery territory infarct, otherwise no acute intracranial findings or significant changes since July of 2023.? CXR also unremarkable.? EKG showed no significant changes compared to prior in May of 2023. (1) Generalized seizure: ?Code(s): R56.9 - Unspecified convulsions ?Status:?Acute ?Assessment and Plan: Head CT: Stable large chronic left middle cerebral artery territory infarct. No acute intracranial finding or significant change since 08/02/2023. CXR: no acute cardiopulmonary disease. EKG:? Sinus tachycardia, left axis deviation, borderline R-wave progression in anterior leads, inferior infarct age indeterminate, baseline wander, abnormal EKG however when compared to EKG in May of 2023 no significant changes. Patient back to baseline, A/Ox1-2. UA:? 1+ protein, 6-10 RBC.? Blood work unremarkable excluding mild hyponatremia with sodium of 136, AST and ALT within normal limits, magnesium within normal limits.? Keppra loaded with 1 G.? Neurology consulted, Denice MURPHY. EEG ordered. Awaiting further recommendations. Continue seizure precautions. DDx:? thyroid dysfunction, stroke, brain lesion/neoplasia. Less likely drug intoxication/withdrawal or infection.? Ruled out hypoxia, metabolic disturbances, electrolyte imbalances.? Monitor daily labs. Adding TSH, A1C and viral PCR. IV fluids started at 100 mL/hr of NS due to tacky oral mucosa/dry appearance and mild hyponatremia. assess daily for discontinuation.? No new medications 10/31 brain MRI with without contrast Seizure precaution, telemetry monitoring COVID-19 infection Chest x-ray showed no acute cardiopulmonary issues, remdesivir started. Patient has active seizure, although patient has no acute cardiopulmonary issues, remdesivir still warranted (2) HTN (hypertension): ?Qualifiers: ?Hypertension type:?primary hypertension? Qualified Code(s):?I10 - Essential (primary) hypertension ?Code(s): I10 - Essential (primary) hypertension ?Status:?Acute ?Assessment and Plan: chronic, stable. BP ranging from 101/78-117/74. Continuing home metoprolol.? Monitor. Subjective Date/time seen: 10/31/23 09:39 Interval history: I saw exam patient, patient is lethargic, patient is alert oriented. Patient denies headache, focal weakness, chest pain, palpitation, labs reviewed, Exam Narrative: GENERAL: Pleasant, in no acute distress. Well-nourished. - EYES: EOMI. Anicteric. - HENT: Moist
[2023-10-31] MEDS: SODIUM CHLORIDE 0.9% IV 1,000 ML 100 ML IV CONT ×2 (12:33→22:33)
[2023-10-31] MEDS: levETIRAcetam 1000MG/NACL100ML 1,000 MG/100 ML BAG 400 MG IVPB (20:51)
[2023-10-31] MEDS: REMDESIVIR 100 MG/NS 250 ML 100 MG/250 ML BAG 250 MG IVPB (21:30)
[2023-11-01] VITALS (10 sets, daily range): BP systolic 103–116; BP diastolic 63–74; PULSE 67–91; RESP 14–18; TEMP 36.6–37.4; O2SAT 98–100
--- NOTE | 2023-11-01 | ECHO_ITS ---
Patient Info Name: Sidney Mcgill Age: 68 years : 1955 Gender: Male Ht: 70 in Wt: 160 lbs BSA: 1.89 m2 HR: 90 bpm BP: 116 / 65 mmHg Heart Rhythm: Sinus Rhythm Technical Quality: Fair Exam Date: 11/01/2023 3:58 PM Exam Location: Echo Lab Patient Status: Inpatient Admit Date: 10/30/2023 Staff Ordering Physician: Fiona Stuart MD Electroplating Sales Representative: Rupinder Grewal RDCS Attending Provider: Huy Jhaveri MD Exam Type: CA echo doppler color flow Study Info Indications - acute stroke Complete two-dimensional, color flow and Doppler transthoracic echocardiogram is performed. Summary 1. Complete two-dimensional, color flow and Doppler transthoracic echocardiogram is performed. 2. Left ventricular chamber dimension is normal. 3. Left ventricular systolic function is normal, estimated at 65-70%. 4. The left ventricular diastolic function is grade I diastolic dysfunction. 5. E/e' 10 is mildly elevated. 6. There is moderate aortic valve sclerosis. Left Ventricle E/e' 10 is mildly elevated. Left ventricular chamber dimension is normal. Left ventricular systolic function is normal, estimated at 65-70%. The left ventricular diastolic function is grade I diastolic dysfunction. Right Ventricle Right ventricular chamber dimension is normal. Right ventricular systolic function is normal. Left Atria Left atrial chamber dimension is normal. Right Atria Right atrial chamber dimension is normal. Aortic Valve The aortic valve is trileaflet. There is moderate aortic valve sclerosis. There is no aortic valve stenosis. There is no aortic valve regurgitation. Pulmonic Valve There is no pulmonic regurgitation. Mitral Valve There is no mitral valve stenosis. There is no mitral valve regurgitation. Tricuspid Valve There is no tricuspid valve regurgitation. Pericardium/Pleural There is no pericardial effusion. Inferior Vena Cava Normal inferior vena cava with >50% collapse upon inspiration consistent with normal right atrial pressure, 5 mmHg. Aorta The aortic root size at the sinus of Valsalva is normal. Left Ventricular Outflow Tract Name Value Normal LVOT 2D LVOT Diameter 2.0 cm LVOT Doppler LVOT Peak Gradient 4 mmHg LVOT Mean Gradient 2 mmHg LVOT VTI 15 cm LVOT VTI/AV VTI Ratio 0.7 LVOT Stroke Volume 45 ml LVOT CO 4.2 l/min LVOT CI 2.2 l/min/m2 Pulmonic Valve Name Value Normal RVOT Doppler RVOT Peak Gradient 2 mmHg PV Doppler PV Peak Gradient 3 mmHg Mitral Valve Name Value Normal
--- NOTE | 2023-11-01 08:48 | PM.IMPN ---
Progress Note: A&P Assessment and Plan (1) Generalized seizure: Code(s): R56.9 - Unspecified convulsions Status: Acute (2) HTN (hypertension): Qualifiers: Hypertension type: primary hypertension Qualified Code(s): I10 - Essential (primary) hypertension Code(s): I10 - Essential (primary) hypertension Status: Acute (3) Acute CVA (cerebrovascular accident): Code(s): I63.9 - Cerebral infarction, unspecified Status: Acute (4) Seizure: Code(s): R56.9 - Unspecified convulsions Status: Acute (5) Dementia: Code(s): F03.90 - Unspecified dementia, unspecified severity, without behavioral disturbance, psychotic disturbance, mood disturbance, and anxiety Status: Acute Plan 68 y/o M presents here with new onset seizures with PMH of CVA, anxiety/depression, RA, Alzheimer's, HTN, HLD, and vitamin D deficiency. Patient is currently residing at [facility]. He was found there with blood in his mouth and increased alteration around 0730. Tranported here via EMS. Per review of paperwork from facility, patient does not have a medical history of seizures and is not currently on any medications for seizures. ED provider also discussed patient's medical history with the patient's brother, Alessandro, who also believed patient did not have a history. Patient is A/Ox1-2 at baseline with PMH of CVA and Alzheimer's. While in ED he returned to this baseline. Patient does not remember events.? Denies any recent illnesses. Denies any other pain. Confirmed history of CVA. Patient believes his RUE is weak at baseline. Additional history is limited due to patient's baseline mentation. ED work up showed WBC and Hgb WNL, mild hyponatremia with sodium of 136, creatinine of 0.9, initial glucose 118 and repeat 153.? UA unremarkable.? Head CT showed stable large chronic left middle cerebral artery territory infarct, otherwise no acute intracranial findings or significant changes since July of 2023.? CXR also unremarkable.? EKG showed no significant changes compared to prior in May of 2023. (Generalized seizure: ?Code(s): R56.9 - Unspecified convulsions ?Status:?Acute ?Assessment and Plan: Head CT: Stable large chronic left middle cerebral artery territory infarct. No acute intracranial finding or significant change since 08/02/2023. CXR: no acute cardiopulmonary disease. EKG:? Sinus tachycardia, left axis deviation, borderline R-wave progression in anterior leads, inferior infarct age indeterminate, baseline wander, abnormal EKG however when compared to EKG in May of 2023 no significant changes. Patient back to baseline, A/Ox1-2. UA:? 1+ protein, 6-10 RBC.? Blood work unremarkable excluding mild hyponatremia with sodium of 136, AST and ALT within normal limits, magnesium within normal limits.? Keppra loaded with 1 G.? Neurology consulted, Denice MURPHY. EEG ordered. Awaiting further recommendations. Continue seizure precautions. DDx:? thyroid dysfunction, stroke, brain lesion/neoplasia. Less likely drug intoxication/withdrawal or infection.? Ruled out hypoxia, metabolic disturbances, electrolyte imbalances.? Monitor daily labs. Adding TSH, A1C and viral PCR. IV fluids started at 100 mL/hr of NS due to tacky oral mucosa/dry appearance and mild hyponatremia. assess daily for discontinuation.? No new medications 10/31 I ordered brain MRI with without contrast Seizure precaution, telemetry monitoring 11/01: No seizure activity earlier diet, cardiac monitor technician shows no significant cardiac arrhythmia, MRI 1. Acute infarct involving the left caudate nucleus. 2. Old infarct involving the left frontotemporal parietal region, left insula, left internal capsule, and left basal ganglia. Neurologist consultation is appreciated, managements per neurologist COVID-19 infection Chest x-ray showed no acute cardiopulmonary issues, remdesivir started. Patient has active seizure, although patient
[2023-11-01] MEDS: CLOPIDOGREL BISULFATE 75 MG TABLET PO (08:52)
[2023-11-01] MEDS: CITALOPRAM HYDROBROMIDE 20 MG TABLET PO (08:52)
[2023-11-01] MEDS: ROSUVASTATIN 10 MG TABLET 40 MG PO (08:52)
[2023-11-01] MEDS: levETIRAcetam 1000MG/NACL100ML 1,000 MG/100 ML BAG 400 MG IVPB (08:52)
[2023-11-01] MEDS: METOPROLOL SUCCINATE EXT REL 25 MG TABCR PO (08:52)
[2023-11-01] MEDS: SODIUM CHLORIDE 0.9% IV 1,000 ML 100 ML IV CONT ×2 (08:53→22:00)
[2023-11-01] MEDS: ACETAMINOPHEN 325 MG TABLET 650 MG PO ×3 (08:53→22:00)
[2023-11-01] MEDS: LORazepam (*CRX) 0.5 MG TABLET PO ×2 (08:53→20:01)
[2023-11-01] MEDS: ENOXAPARIN 40 MG/0.4 ML SYRINGE SUB-Q (08:55)
--- NOTE | 2023-11-01 09:36 | WPDNEURCNPN ---
Assessment and Plan Assessment and plan (1) Seizure: Code(s): R56.9 - Unspecified convulsions Status: Acute (2) CVA (cerebral vascular accident): Code(s): I63.9 - Cerebral infarction, unspecified Status: Acute (3) HTN (hypertension): Qualifiers: Hypertension type: primary hypertension Qualified Code(s): I10 - Essential (primary) hypertension Code(s): I10 - Essential (primary) hypertension Status: Acute (4) Dementia: Code(s): F03.90 - Unspecified dementia, unspecified severity, without behavioral disturbance, psychotic disturbance, mood disturbance, and anxiety Status: Acute Plan Mr. Mcgill is a 68 year old male with a history of prior L MCA territory stroke and dementia presenting due to concerns for seizure. He was found altered with blood in his mouth. With the prior stroke, he is at high risk for seizures in the future. Therefore, anti-seizure medication should be initiated. Patient also found to have acute stroke in the L caudate. - Start Keppra 500mg BID - Routine EEG is ordered and pending - Obtain CTA brain/carotid - Check LDL and surface echocardiogram with bubble study - Continue Aspirin, Plavix, and Rosuvastatin for now Consult date: 11/01/23 HPI: Sidney Mcgill is a 68 year old male with a history of prior L MCA territory stroke, hypertension, cognitive deficit presenting for evaluation of seizure like activity. Patient lives in extended care facility. Patient was found with blood in his mouth with change in his mental status on 17 AM. Patient was brought to [place] ED. Initially there were reports that patient has a history of seizures. He does not take any anti-seizure medications. ED provider also discussed patient's history with his brother, who also reports that patient does not have a prior history of seizures as far as he knows. Patient is AOx1-2 at baseline. In the ED, he returned to his baseline. Patient does not have any recollection of the event that resulted in him being donaldo to the ED. His lab work was unrevealing. UA was not concerning for infection. CT head showed old L MCA territory infarct. MRI brain done this morning showed acute infarct in the L caudate. He has been normotensive during the admission. He already takes aspirin, Plavix, and Rosuvastatin 40mg daily. LDL not checked yet. A1c is 5.6. Review of Systems Review of Systems: ROS unobtainable: Yes unobtainable due to medical condition and unobtainable due to mental status PMFSH Past Medical History Medical History Alzheimer's dementia Anxiety and depression CVA (cerebral vascular accident) L middle cerebral artery Gait instability HLD (hyperlipidemia) HTN (hypertension) Muscle weakness Rheumatoid arthritis Vitamin D deficiency Social History Social History Social History: Resides at [facility]. Currently DNR. Smoking status: Unknown if ever smoked Alcohol intake: unknown Substance use: unknown Spiritual care concerns: No Meds Home Medications and Allergies Home Medications Medication Instructions Recorded Confirmed Type acetaminophen 325 mg tablet See Rx Instructions .Route 05/30/23 10/30/23 History .COMPLEX PRN Pain citalopram 20 mg tablet (Celexa) 20 mg PO DAILY 05/30/23 10/30/23 History clopidogrel 75 mg tablet 75 mg PO DAILY 05/30/23 10/30/23 History enoxaparin 40 mg/0.4 mL 40 mg subcut DAILY 05/30/23 10/30/23 History subcutaneous syringe ergocalciferol (vitamin D2) 1,250 1,250 mcg PO WEEKLY 05/30/23 10/30/23 History mcg (50,000 unit) capsule (Drisdol) metoprolol succinate 25 mg 25 mg PO DAILY 05/30/23 10/30/23 History tablet,extended release 24 hr rosuvastatin 40 mg tablet 40 mg PO DAILY 05/30/23 10/30/23 History lorazepam 0.5 mg tablet 0.5 mg PO DAILY 10/30/23 10/30/23 History lorazepam 0.5 mg tablet 0.5
[2023-11-01 13:29] LABS: LDL Cholesterol Direct 78 mg/dL
--- NOTE | 2023-11-01 15:57 | P.NEURO_ITS ---
Neurology EEG Report General Information Date of Study: 10/31/23 TEST Routine EEG DIAGNOSIS New onset seizure CONDITION OF RECORDING Awake, drowsy EEG NUMBER [id number] CLINICAL HISTORY Patient has a history of prior L MCA territory stroke and dementia presenting due to concerns for seizure. He was found altered with blood in his mouth at his nursing facility. EEG DESCRIPTION The recording is continuous. There is a well developed anterior-posterior gradient. During the awake state with eyes closed the background consists of 6-7 Hz posterior dominant rhythm which attenuates appropriately with eye opening. There is also intermittent delta range slowing in the left posterior region. With drowsiness there is waxing and waning of the dominant rhythm. Patient does not enter stage II sleep. There are no epileptiform discharges or seizures durin g this recording. Hyperventilation and photic stimulation were not performed due to patient's clinical status. IMPRESSION This is an abnormal routine EEG due to the presence of diffuse slowing suggestive of generalized cerebral dysfunction, which can be seen in the setting of encephalopathy of undetermined etiology. There is also focal slowing in the left posterior region, suggestive of superimposed focal cerebral dysfunction in that area. No seizures or epileptiform features were noted. Clinical correlation is recommended.
[2023-11-01] MEDS: levETIRAcetam 500 MG TABLET PO (20:01)
[2023-11-01] MEDS: REMDESIVIR 100 MG/NS 250 ML 100 MG/250 ML BAG 250 MG IVPB (21:45)
[2023-11-02] VITALS (10 sets, daily range): BP systolic 103–108; BP diastolic 61–73; PULSE 72–98; RESP 14–22; TEMP 36.1–37.2; O2SAT 96–98
[2023-11-02] MEDS: levETIRAcetam 500 MG TABLET PO ×2 (07:54→21:00)
[2023-11-02] MEDS: CITALOPRAM HYDROBROMIDE 20 MG TABLET PO (07:55)
[2023-11-02] MEDS: METOPROLOL SUCCINATE EXT REL 25 MG TABCR PO (07:56)
[2023-11-02] MEDS: ROSUVASTATIN 10 MG TABLET 40 MG PO (07:56)
[2023-11-02] MEDS: CLOPIDOGREL BISULFATE 75 MG TABLET PO (07:56)
[2023-11-02] MEDS: ACETAMINOPHEN 325 MG TABLET 650 MG PO ×3 (07:56→21:00)
[2023-11-02] MEDS: LORazepam (*CRX) 0.5 MG TABLET PO ×2 (07:57→14:24)
[2023-11-02] MEDS: SODIUM CHLORIDE 0.9% IV 1,000 ML 100 ML IV CONT ×2 (07:57→21:00)
[2023-11-02] MEDS: ENOXAPARIN 40 MG/0.4 ML SYRINGE SUB-Q (07:57)
--- NOTE | 2023-11-02 09:17 | PM.IMPN ---
Progress Note: A&P Assessment and Plan (1) Generalized seizure: Code(s): R56.9 - Unspecified convulsions Status: Acute (2) HTN (hypertension): Qualifiers: Hypertension type: primary hypertension Qualified Code(s): I10 - Essential (primary) hypertension Code(s): I10 - Essential (primary) hypertension Status: Acute (3) Acute CVA (cerebrovascular accident): Code(s): I63.9 - Cerebral infarction, unspecified Status: Acute (4) Seizure: Code(s): R56.9 - Unspecified convulsions Status: Acute (5) Dementia: Code(s): F03.90 - Unspecified dementia, unspecified severity, without behavioral disturbance, psychotic disturbance, mood disturbance, and anxiety Status: Acute Plan 68 y/o M presents here with new onset seizures with PMH of CVA, anxiety/depression, RA, Alzheimer's, HTN, HLD, and vitamin D deficiency. Patient is currently residing at [facility]. He was found there with blood in his mouth and increased alteration around 0730. Tranported here via EMS. Per review of paperwork from facility, patient does not have a medical history of seizures and is not currently on any medications for seizures. ED provider also discussed patient's medical history with the patient's brother, Alessandro, who also believed patient did not have a history. Patient is A/Ox1-2 at baseline with PMH of CVA and Alzheimer's. While in ED he returned to this baseline. Patient does not remember events.? Denies any recent illnesses. Denies any other pain. Confirmed history of CVA. Patient believes his RUE is weak at baseline. Additional history is limited due to patient's baseline mentation. ED work up showed WBC and Hgb WNL, mild hyponatremia with sodium of 136, creatinine of 0.9, initial glucose 118 and repeat 153.? UA unremarkable.? Head CT showed stable large chronic left middle cerebral artery territory infarct, otherwise no acute intracranial findings or significant changes since July of 2023.? CXR also unremarkable.? EKG showed no significant changes compared to prior in May of 2023. (Generalized seizure: ?Code(s): R56.9 - Unspecified convulsions ?Status:?Acute ?Assessment and Plan: Head CT: Stable large chronic left middle cerebral artery territory infarct. No acute intracranial finding or significant change since 08/02/2023. CXR: no acute cardiopulmonary disease. EKG:? Sinus tachycardia, left axis deviation, borderline R-wave progression in anterior leads, inferior infarct age indeterminate, baseline wander, abnormal EKG however when compared to EKG in May of 2023 no significant changes. Patient back to baseline, A/Ox1-2. UA:? 1+ protein, 6-10 RBC.? Blood work unremarkable excluding mild hyponatremia with sodium of 136, AST and ALT within normal limits, magnesium within normal limits.? Keppra loaded with 1 G.? Neurology consulted, Denice MURPHY. EEG ordered. Awaiting further recommendations. Continue seizure precautions. DDx:? thyroid dysfunction, stroke, brain lesion/neoplasia. Less likely drug intoxication/withdrawal or infection.? Ruled out hypoxia, metabolic disturbances, electrolyte imbalances.? Monitor daily labs. Adding TSH, A1C and viral PCR. IV fluids started at 100 mL/hr of NS due to tacky oral mucosa/dry appearance and mild hyponatremia. assess daily for discontinuation.? No new medications 10/31 I ordered brain MRI with without contrast Seizure precaution, telemetry monitoring 11/01: No seizure activity earlier diet, cafeteria monitor shows no significant cardiac arrhythmia, MRI 1. Acute infarct involving the left caudate nucleus. 2. Old infarct involving the left frontotemporal parietal region, left insula, left internal capsule, and left basal ganglia. Neurologist consultation is appreciated, managements per neurologist Complete two-dimensional, color flow and Doppler transthoracic echocardiogram, but the bubble study was not performed although it was orde
--- NOTE | 2023-11-02 09:19 | WPDNEUROPN ---
Progress Note: A&P Assessment and Plan (1) Acute CVA (cerebrovascular accident): Code(s): I63.9 - Cerebral infarction, unspecified Status: Acute (2) Seizure: Code(s): R56.9 - Unspecified convulsions Status: Acute (3) Dementia: Code(s): F03.90 - Unspecified dementia, unspecified severity, without behavioral disturbance, psychotic disturbance, mood disturbance, and anxiety Status: Acute (4) CVA (cerebral vascular accident): Code(s): I63.9 - Cerebral infarction, unspecified Status: Acute Plan Mr. Mcgill is a 68 year old male with a history of prior L MCA territory stroke and dementia presenting due to concerns for seizure. He was found altered with blood in his mouth. With the prior stroke, he is at high risk for seizures in the future. Therefore, anti-seizure medication should be initiated. Patient also found to have acute stroke in the L caudate. Etiology of stroke is cryptogenic as he does not have any evidence of large vessel stenosis. His BP, LDL, and A1c are appropriate as well. COVID-19 can cause thrombotic events. Cardiac work-up so far has been unrevealing, but bubble study was not done due to underlying infection. - Continue Keppra 500mg BID - Recommend bubble study as outpatient once recovered from infection -- may also need additional cardiac testing if bubble study is negative since etiology of stroke is still unclear; should have cardiology outpatient follow-up as well. - Continue Plavix 75mg, add Aspirin 81mg daily - goal LDL is <70; patient's LDL is 78, consider adding another agent or switching to higher dose atorvastatin Subjective Date/time seen: 11/02/23 09:19 Interval history: Sidney Mcgill is a 68 year old male with a history of prior L MCA territory stroke, hypertension, cognitive deficit presenting for evaluation of seizure like activity. Patient lives in extended care facility. Patient was found with blood in his mouth with change in his mental status on 10/30 AM. Patient was brought to [place] ED. Initially there were reports that patient has a history of seizures. He does not take any anti-seizure medications. ED provider also discussed patient's history with his brother, who also reports that patient does not have a prior history of seizures as far as he knows. Patient is AOx1-2 at baseline. In the ED, he returned to his baseline. Patient does not have any recollection of the event that resulted in him being brought to the ED. His lab work was unrevealing. UA was not concerning for infection. CT head showed old L MCA territory infarct. MRI brain showed acute infarct in the L caudate. He has been normotensive during the admission. He already takes Plavix, and Rosuvastatin 40mg daily. LDL 78 not checked yet. A1c is 5.6. Echocardiogram done which was unrevealing, but bubble study could not be done per echo techs due to patient being COVID-19 positive. Routine EEG showed focal superimposed on diffuse slowing (L posterior region). CTA brain/carotid is negative for intracranial or extracranial stenosis. 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 Language comprehension and fluency intact. Gait deferred. Extrem: General: normal to inspection Objective Data Vital Signs Vi
[2023-11-02 09:44] LABS: Basophils Percent Auto 0.2 % (0.2-1.2); Eosinophils Percent Auto 0.2 % (0-4.4); Hematocrit 38.2 % (42.0-52.0); Hemoglobin 12.3 g/dL (14.0-18.0); Immature Granulocyte Absolute 0.05 K/mm3 (0.00-0.031); Immature Granulocyte Percent A 0.4 % (0-0.5); Lymphocytes Absolute Auto 1.52 K/mm3 (0.9-3.2); Lymphocytes Percent Auto 11.7 % (18.3-44.2); Mean Corpuscular HGB Conc 32.2 g/dl (32-36); Mean Corpuscular Hemoglobin 29.5 pg (26-34); Mean Corpuscular Volume 91.6 fl (80-100); Mean Platelet Volume 9.1 fl (7.4-10.4); Monocytes Absolute Auto 0.6 K/mm3 (0.1-0.6); Monocytes Percent Auto 4.8 % (2.6-8.5); Neutrophils Absolute Auto 10.8 K/mm3 (1.3-6.7); Neutrophils Percent Auto 82.7 % (45.5-73.1); Platelet Count Result 199 k/mm3 (150-375); Red Blood Count 4.17 M/mm3 (4.6-6.20); Red Cell Distribution Width 13.2 % (11.5-14.5)
[2023-11-02 09:59] LABS: Anion Gap 6 mmol/L (8-16); Blood Urea Nitrogen 7 mg/dL (9-20); Calcium 8.2 mg/dL (8.4-10.2); Carbon Dioxide 24 mmol/L (22-30); Chloride 105 mmol/L (98-107); Estimated CRCL calculation 90 ml/min; Estimated Glomerular Filt Rate > 60; Glucose 168 mg/dL (65-110); Potassium 3.3 mmol/L (3.4-5.0); Sodium 135 mmol/L (137-145)
[2023-11-03] VITALS (11 sets, daily range): BP systolic 102–116; BP diastolic 65–77; PULSE 58–81; RESP 14–20; TEMP 36.4–36.6; O2SAT 96–100
[2023-11-03] MEDS: LORazepam (*CRX) 0.5 MG TABLET PO (05:43)
[2023-11-03] MEDS: ACETAMINOPHEN 325 MG TABLET 650 MG PO ×3 (05:43→18:25)
[2023-11-03] MEDS: SODIUM CHLORIDE 0.9% IV 1,000 ML 100 ML IV CONT ×2 (05:58→16:19)
[2023-11-03 06:12] LABS: Basophils Percent Auto 0.2 % (0.2-1.2); Eosinophils Absolute Auto 0.2 K/mm3 (0-0.3); Eosinophils Percent Auto 1.7 % (0-4.4); Hematocrit 39.9 % (42.0-52.0); Immature Granulocyte Absolute 0.02 K/mm3 (0.00-0.031); Immature Granulocyte Percent A 0.2 % (0-0.5); Lymphocytes Absolute Auto 1.54 K/mm3 (0.9-3.2); Lymphocytes Percent Auto 15.8 % (18.3-44.2); Mean Corpuscular HGB Conc 32.6 g/dl (32-36); Mean Corpuscular Hemoglobin 29.6 pg (26-34); Mean Corpuscular Volume 90.9 fl (80-100); Mean Platelet Volume 9.7 fl (7.4-10.4); Monocytes Absolute Auto 0.8 K/mm3 (0.1-0.6); Monocytes Percent Auto 8.1 % (2.6-8.5); Neutrophils Absolute Auto 7.2 K/mm3 (1.3-6.7); Platelet Count Result 234 k/mm3 (150-375); Red Blood Count 4.39 M/mm3 (4.6-6.20); Red Cell Distribution Width 13.1 % (11.5-14.5); White Blood Count 9.7 K/mm3 (4.5-10.0)
[2023-11-03 06:22] LABS: Anion Gap 7 mmol/L (8-16); Blood Urea Nitrogen 7 mg/dL (9-20); Calcium 8.4 mg/dL (8.4-10.2); Carbon Dioxide 23 mmol/L (22-30); Chloride 108 mmol/L (98-107); Estimated CRCL calculation 103 ml/min; Estimated Glomerular Filt Rate > 60; Glucose 99 mg/dL (65-110); Potassium 3.5 mmol/L (3.4-5.0); Sodium 138 mmol/L (137-145)
--- NOTE | 2023-11-03 08:28 | PM.IMPN ---
Progress Note: A&P Assessment and Plan (1) Generalized seizure: Code(s): R56.9 - Unspecified convulsions Status: Acute (2) HTN (hypertension): Qualifiers: Hypertension type: primary hypertension Qualified Code(s): I10 - Essential (primary) hypertension Code(s): I10 - Essential (primary) hypertension Status: Acute (3) Acute CVA (cerebrovascular accident): Code(s): I63.9 - Cerebral infarction, unspecified Status: Acute (4) Seizure: Code(s): R56.9 - Unspecified convulsions Status: Acute (5) Dementia: Code(s): F03.90 - Unspecified dementia, unspecified severity, without behavioral disturbance, psychotic disturbance, mood disturbance, and anxiety Status: Acute Plan 68 y/o M presents here with new onset seizures with PMH of CVA, anxiety/depression, RA, Alzheimer's, HTN, HLD, and vitamin D deficiency. Patient is currently residing at [facility]. He was found there with blood in his mouth and increased alteration around 0730. Tranported here via EMS. Per review of paperwork from facility, patient does not have a medical history of seizures and is not currently on any medications for seizures. ED provider also discussed patient's medical history with the patient's brother, Alessandro, who also believed patient did not have a history. Patient is A/Ox1-2 at baseline with PMH of CVA and Alzheimer's. While in ED he returned to this baseline. Patient does not remember events.? Denies any recent illnesses. Denies any other pain. Confirmed history of CVA. Patient believes his RUE is weak at baseline. Additional history is limited due to patient's baseline mentation. ED work up showed WBC and Hgb WNL, mild hyponatremia with sodium of 136, creatinine of 0.9, initial glucose 118 and repeat 153.? UA unremarkable.? Head CT showed stable large chronic left middle cerebral artery territory infarct, otherwise no acute intracranial findings or significant changes since July of 2023.? CXR also unremarkable.? EKG showed no significant changes compared to prior in May of 2023. (Generalized seizure: ?Code(s): R56.9 - Unspecified convulsions ?Status:?Acute ?Assessment and Plan: Head CT: Stable large chronic left middle cerebral artery territory infarct. No acute intracranial finding or significant change since 08/02/2023. CXR: no acute cardiopulmonary disease. EKG:? Sinus tachycardia, left axis deviation, borderline R-wave progression in anterior leads, inferior infarct age indeterminate, baseline wander, abnormal EKG however when compared to EKG in May of 2023 no significant changes. Patient back to baseline, A/Ox1-2. UA:? 1+ protein, 6-10 RBC.? Blood work unremarkable excluding mild hyponatremia with sodium of 136, AST and ALT within normal limits, magnesium within normal limits.? Keppra loaded with 1 G.? Neurology consulted, Denice MURPHY. EEG ordered. Awaiting further recommendations. Continue seizure precautions. DDx:? thyroid dysfunction, stroke, brain lesion/neoplasia. Less likely drug intoxication/withdrawal or infection.? Ruled out hypoxia, metabolic disturbances, electrolyte imbalances.? Monitor daily labs. Adding TSH, A1C and viral PCR. IV fluids started at 100 mL/hr of NS due to tacky oral mucosa/dry appearance and mild hyponatremia. assess daily for discontinuation.? 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 Acute infarct involving the left caudate nucleus. 2. Old infarct involving the left frontotemporal parietal region, left insula, left internal capsule, and left basal ganglia. Neurologist consultation is appreciated, managements per neurologist Continue Keppra 500 mg q.12 hours p.o. COVID-19 infection Chest x-ray showed no acute cardiopulmonary issues, remdesivir started. Padma
[2023-11-03] MEDS: ENOXAPARIN 40 MG/0.4 ML SYRINGE SUB-Q (09:16)
[2023-11-03] MEDS: CLOPIDOGREL BISULFATE 75 MG TABLET PO (09:16)
[2023-11-03] MEDS: METOPROLOL SUCCINATE EXT REL 25 MG TABCR PO (09:16)
[2023-11-03] MEDS: ROSUVASTATIN 10 MG TABLET 40 MG PO (09:16)
[2023-11-03] MEDS: CITALOPRAM HYDROBROMIDE 20 MG TABLET PO (09:16)
[2023-11-03] MEDS: levETIRAcetam 500 MG TABLET PO ×2 (09:17→20:54)
--- NOTE | 2023-11-03 11:44 | PC.NURSE ---
Patient in bed during morning assessment. I asked patient if he could scratch his head if he had an itch ? He immediately reached up with his left hand and touched his forehead. Patient took the medicine cup from me and emptied the pills into his mouth. He took his water cup with his right hand and washed the pills down. He also removed a cookie from his tray and ate it. Patient is not a feeder he just needs motivation and coaching to know what to do. Patient also asked if he could take a nap and I told him absolutely.
[2023-11-04] VITALS (10 sets, daily range): BP systolic 113–123; BP diastolic 71–74; PULSE 50–77; RESP 16–18; TEMP 35.6–36.9; O2SAT 95–99
[2023-11-04] MEDS: ACETAMINOPHEN 325 MG TABLET 650 MG PO ×4 (00:14→21:15)
[2023-11-04] MEDS: SODIUM CHLORIDE 0.9% IV 1,000 ML 100 ML IV CONT ×2 (03:00→13:34)
--- NOTE | 2023-11-04 08:40 | P.PNIM_ITS ---
Progress Note: A&P Assessment and Plan (1) Generalized seizure: Code(s): R56.9 - Unspecified convulsions Status: Acute (2) HTN (hypertension): Qualifiers: Hypertension type: primary hypertension Qualified Code(s): I10 - Essential (primary) hypertension Code(s): I10 - Essential (primary) hypertension Status: Acute (3) Acute CVA (cerebrovascular accident): Code(s): I63.9 - Cerebral infarction, unspecified Status: Acute (4) Seizure: Code(s): R56.9 - Unspecified convulsions Status: Acute (5) Dementia: Code(s): F03.90 - Unspecified dementia, unspecified severity, without behavioral disturbance, psychotic disturbance, mood disturbance, and anxiety Status: Acute Plan 68 y/o M presents here with new onset seizures with PMH of CVA, anxiety/depression, RA, Alzheimer's, HTN, HLD, and vitamin D deficiency. Patient is currently residing at [facility]. He was found there with blood in his mouth and increased alteration around 0730. Tranported here via EMS. Per review of paperwork from facility, patient does not have a medical history of seizures and is not currently on any medications for seizures. ED provider also discussed patient's medical history with the patient's brother, Alessandro, who also believed patient did not have a history. Patient is A/Ox1-2 at baseline with PMH of CVA and Alzheimer's. While in ED he returned to this baseline. Patient does not remember events.? Denies any recent illnesses. Denies any other pain. Confirmed history of CVA. Patient believes his RUE is weak at baseline. Additional history is limited due to patient's baseline mentation. ED work up showed WBC and Hgb WNL, mild hyponatremia with sodium of 136, creatinine of 0.9, initial glucose 118 and repeat 153.? UA unremarkable.? Head CT showed stable large chronic left middle cerebral artery territory infarct, otherwise no acute intracranial findings or significant changes since July of 2023.? CXR also unremarkable.? EKG showed no significant changes comp ared to prior in May of 2023. (Generalized seizure: ?Code(s): R56.9 - Unspecified convulsions ?Status:?Acute ?Assessment and Plan: Head CT: Stable large chronic left middle cerebral artery territory infarct. No acute intracranial finding or significant change since 08/02/2023. CXR: no acute cardiopulmonary disease. EKG:? Sinus tachycardia, left axis deviation, borderline R-wave progression in anterior leads, inferior infarct age indeterminate, baseline wander, abnormal EKG however when compared to EKG in May of 2023 no significant changes. Patient back to baseline, A/Ox1-2. UA:? 1+ protein, 6-10 RBC.? Blood work unremarkable excluding mild hyponatremia with sodium of 136, AST and ALT within normal limits, magnesium within normal limits.? Keppra loaded with 1 G.? Neurology consulted, Denice MURPHY. EEG ordered. Awaiting further recommendations. Continue seizure precautions. DDx:? thyroid dysfunction, stroke, brain lesion/neoplasia. Less likely drug intoxication/withdrawal or infection.? Ruled out hypoxia, metabolic disturbances, electrolyte imbalances.? Monitor daily labs. Adding TSH, A1C and viral PCR. IV fluids started at 100 mL/hr of NS due to tacky oral mucosa/dry appearance and mild hyponatremia. assess daily for discontinuation.? No new medications 10/31 I ordered brain MRI with without contrast Seizure precaution, telemetry monitoring 11/01: No seizure activity earlier diet, bus driver/monitor shows no significant cardiac arrhythmia, MRI 1. Acute infarct involving the left caudate nucleus. 2. Old infarct involving the left frontotemporal
[2023-11-04 08:48] LABS: Basophils Percent Auto 0.2 % (0.2-1.2); Eosinophils Absolute Auto 0.2 K/mm3 (0-0.3); Eosinophils Percent Auto 3.2 % (0-4.4); Hematocrit 41.8 % (42.0-52.0); Hemoglobin 13.7 g/dL (14.0-18.0); Immature Granulocyte Absolute 0.01 K/mm3 (0.00-0.031); Immature Granulocyte Percent A 0.2 % (0-0.5); Lymphocytes Absolute Auto 1.02 K/mm3 (0.9-3.2); Lymphocytes Percent Auto 18.1 % (18.3-44.2); Mean Corpuscular HGB Conc 32.8 g/dl (32-36); Mean Corpuscular Volume 91.5 fl (80-100); Mean Platelet Volume 9.3 fl (7.4-10.4); Monocytes Absolute Auto 0.5 K/mm3 (0.1-0.6); Monocytes Percent Auto 8.5 % (2.6-8.5); Neutrophils Absolute Auto 3.9 K/mm3 (1.3-6.7); Neutrophils Percent Auto 69.8 % (45.5-73.1); Platelet Count Result 250 k/mm3 (150-375); Red Blood Count 4.57 M/mm3 (4.6-6.20); Red Cell Distribution Width 13.2 % (11.5-14.5); White Blood Count 5.6 K/mm3 (4.5-10.0)
[2023-11-04 08:59] LABS: Anion Gap 5 mmol/L (8-16); Blood Urea Nitrogen 4 mg/dL (9-20); Calcium 8.7 mg/dL (8.4-10.2); Carbon Dioxide 25 mmol/L (22-30); Chloride 107 mmol/L (98-107); Estimated CRCL calculation 103 ml/min; Estimated Glomerular Filt Rate > 60; Glucose 100 mg/dL (65-110); Potassium 3.5 mmol/L (3.4-5.0); Sodium 137 mmol/L (137-145)
[2023-11-04] MEDS: LORazepam (*CRX) 0.5 MG TABLET PO (09:45)
[2023-11-04] MEDS: CITALOPRAM HYDROBROMIDE 20 MG TABLET PO (09:45)
[2023-11-04] MEDS: ERGOCALCIFEROL 50,000 UNITS CAPSULE 50000 UNITS PO (09:45)
[2023-11-04] MEDS: METOPROLOL SUCCINATE EXT REL 25 MG TABCR PO (09:45)
[2023-11-04] MEDS: levETIRAcetam 500 MG TABLET PO ×2 (09:45→21:15)
[2023-11-04] MEDS: CLOPIDOGREL BISULFATE 75 MG TABLET PO (09:45)
[2023-11-04] MEDS: ROSUVASTATIN 10 MG TABLET 40 MG PO (09:46)
[2023-11-04] MEDS: ENOXAPARIN 40 MG/0.4 ML SYRINGE SUB-Q (09:46)
[2023-11-05] VITALS (8 sets, daily range): BP systolic 119–143; BP diastolic 62–79; PULSE 40–87; RESP 16; TEMP 35.7–36.3; O2SAT 98–100
[2023-11-05] MEDS: METOPROLOL SUCCINATE EXT REL 25 MG TABCR PO (09:40)
[2023-11-05] MEDS: ROSUVASTATIN 10 MG TABLET 40 MG PO (09:40)
[2023-11-05] MEDS: CITALOPRAM HYDROBROMIDE 20 MG TABLET PO (09:40)
[2023-11-05] MEDS: ASPIRIN 81 MG ENTERIC TABLET PO (09:41)
[2023-11-05] MEDS: CLOPIDOGREL BISULFATE 75 MG TABLET PO (09:41)
[2023-11-05] MEDS: levETIRAcetam 500 MG TABLET PO (09:41)
[2023-11-05] MEDS: LORazepam (*CRX) 0.5 MG TABLET PO (09:41)
[2023-11-05] MEDS: ACETAMINOPHEN 325 MG TABLET 650 MG PO ×2 (09:42→17:54)
[2023-11-05] MEDS: SODIUM CHLORIDE 0.9% IV 1,000 ML 100 ML IV CONT (09:44)
[2023-11-05] MEDS: ENOXAPARIN 40 MG/0.4 ML SYRINGE SUB-Q (09:44)
--- NOTE | 2023-11-05 14:27 | PM.DS ---
DS: Admitting Diagnosis Discharge Date 11/05/2023 Admitting Diagnosis Seizure DS: Discharge Diagnosis Discharge Diagnosis (1) Generalized seizure: Code(s): R56.9 - Unspecified convulsions Status: Acute (2) HTN (hypertension): Qualifiers: Hypertension type: primary hypertension Qualified Code(s): I10 - Essential (primary) hypertension Code(s): I10 - Essential (primary) hypertension Status: Acute (3) Acute CVA (cerebrovascular accident): Code(s): I63.9 - Cerebral infarction, unspecified Status: Acute (4) Seizure: Code(s): R56.9 - Unspecified convulsions Status: Acute (5) Dementia: Code(s): F03.90 - Unspecified dementia, unspecified severity, without behavioral disturbance, psychotic disturbance, mood disturbance, and anxiety Status: Acute Plan 68 y/o M presents here with new onset seizures with PMH of CVA, anxiety/depression, RA, Alzheimer's, HTN, HLD, and vitamin D deficiency. Patient is currently residing at [facility]. He was found there with blood in his mouth and increased alteration around 0730. Tranported here via EMS. Per review of paperwork from facility, patient does not have a medical history of seizures and is not currently on any medications for seizures. ED provider also discussed patient's medical history with the patient's brother, Alessandro, who also believed patient did not have a history. Patient is A/Ox1-2 at baseline with PMH of CVA and Alzheimer's. While in ED he returned to this baseline. Patient does not remember events.? Denies any recent illnesses. Denies any other pain. Confirmed history of CVA. Patient believes his RUE is weak at baseline. Additional history is limited due to patient's baseline mentation. ED work up showed WBC and Hgb WNL, mild hyponatremia with sodium of 136, creatinine of 0.9, initial glucose 118 and repeat 153.? UA unremarkable.? Head CT showed stable large chronic left middle cerebral artery territory infarct, otherwise no acute intracranial findings or significant changes since July of 2023.? CXR also unremarkable.? EKG showed no significant changes compared to prior in May of 2023. (Generalized seizure: ?Code(s): R56.9 - Unspecified convulsions ?Status:?Acute ?Assessment and Plan: Head CT: Stable large chronic left middle cerebral artery territory infarct. No acute intracranial finding or significant change since 08/02/2023. CXR: no acute cardiopulmonary disease. EKG:? Sinus tachycardia, left axis deviation, borderline R-wave progression in anterior leads, inferior infarct age indeterminate, baseline wander, abnormal EKG however when compared to EKG in May of 2023 no significant changes. Patient back to baseline, A/Ox1-2. UA:? 1+ protein, 6-10 RBC.? Blood work unremarkable excluding mild hyponatremia with sodium of 136, AST and ALT within normal limits, magnesium within normal limits.? Keppra loaded with 1 G.? Neurology consulted, Denice MURPHY. EEG ordered. Awaiting further recommendations. Continue seizure precautions. DDx:? thyroid dysfunction, stroke, brain lesion/neoplasia. Less likely drug intoxication/withdrawal or infection.? Ruled out hypoxia, metabolic disturbances, electrolyte imbalances.? Monitor daily labs. Adding TSH, A1C and viral PCR. IV fluids started at 100 mL/hr of NS due to tacky oral mucosa/dry appearance and mild hyponatremia. assess daily for discontinuation.? No new medications 10/31 I ordered brain MRI with without contrast Seizure precaution, telemetry monitoring 11/01: No seizure activity earlier diet, auto hauler shows no significant cardiac arrhythmia, MRI 1. Acute infarct involving the left caudate nucleus. 2. Old infarct involving the left frontotemporal parietal region, left insula, left internal capsule, and left basal ganglia. Neurologist consultation is appreciated, managements per neurologist Continue Keppra 500 mg q.12 hours p.o. no seizure dur
--- NOTE | 2023-11-05 16:51 | PC.NURSE ---
Third unsuccessful attempt to contact [facility] to give report. This RN notified them that the patient will be sent with no report given if they do not return the call for report.
--- NOTE | 2023-11-05 20:03 | PC.NURSE ---
This RN received report on the pt, this RN gave report to EMS. Facility called with no response. Pt transported via EMS.
== END 2023-11-05 20:05 | DRG 177 ==
LOC: ANHED 10:41 → ANH3MEDSUR 11:48
PROVIDERS: Hospitalist; Student in an Organized Health Care Education/Training Program; Admitting Provider Internal Medicine; Emergency Provider Emergency Medicine; PCP Hospitalist; Visit Provider Family Medicine
DX: U07.1 COVID-19 (principal); I63.89 Other cerebral infarction; E87.1 Hypo-osmolality and hyponatremia; R56.9 Unspecified convulsions; I10 Essential (primary) hypertension; E78.5 Hyperlipidemia, unspecified; E55.9 Vitamin D deficiency, unspecified; G30.9 Alzheimer's disease, unspecified; M06.9 Rheumatoid arthritis, unspecified; F02.80 Dementia in other diseases classified elsewhere, unspecified severity, without behavioral disturbance, psychotic disturbance, mood disturbance, and anxiety; F32.A Depression, unspecified; F41.9 Anxiety disorder, unspecified; Z79.02 Long term (current) use of antithrombotics/antiplatelets
CPT/HCPCS: 36415; 70450; 70496; 70498; 70553; 71045; 80048; 80053; 81001; 83036; 83721; 83735; 84439; 84443; 84480; 85025; 85610; 85730; 87637; 93005; 93306; 95816; 96374; 99285; A9270; A9577; J0248; J1650; J1953; J7030; Q9967

== ENCOUNTER 2023-11-20 18:33 | Emergency (ER) | payer MEDICARE, SELFPAY ==
--- NOTE | ~2023-11-20 | CT_ITS ---
EXAMINATION: CT brain wo con DATE: 11/20/2023 20:34 INDICATION: Head injury. TECHNIQUE: Computed tomography (CT) of the head was performed without intravenous contrast. The mA wa s adjusted according to patient size. Iterative reconstruction technique was employed. The dose-lengt h product was 681.00 mGy-cm. COMPARISON: Head CT 11/01/2023, brain MRI 11/01/23 FINDINGS: There is an old infarct involving the left frontotemporal parietal region, left insula, lef t basal ganglia, and left internal capsule. There is chronic Wallerian degeneration involving the lef t corticospinal tracts. There is no intracranial hemorrhage, acute infarction, or abnormal intracrani al mass lesion. The ventricles are normal in size. There is mild mucosal thickening in the paranasal sinuses. The orbits are normal. The mastoid air cells are normal. There is cerumen in left external a uditory canal. IMPRESSION: 1. Large old infarct involving the left frontotemporal parietal region, left insula, left basal gangl ia, and left internal capsule. Reviewed, dictated and finalized at location E. HER MIXER IMPRESSION: 1. Large old infarct involving the left frontotemporal parietal region, left in sula, left basal ganglia, and left internal capsule.
--- NOTE | ~2023-11-20 | CT_ITS ---
EXAMINATION: CT cervical spine wo con DATE: 11/20/2023 20:34 INDICATION: Head injury. TECHNIQUE: Computed tomography (CT) of the cervical spine was performed without intravenous contrast. Automated exposure control and iterative reconstruction technique were employed. The dose-length pro duct was 466.31 mGy-cm. COMPARISON: CT cervical spine 08/02/2023 FINDINGS: There is mild scarring at the lung apices. There is mild kyphosis of lower cervical spine. There is 13 degrees levoscoliosis of cervical spine. There is 2 mm anterolisthesis of C4 on C5. Verte bral body heights are normal. There is mildly decreased disc height at C3-C4 and C4-C5 and severely d ecreased disc height at C5-C6 and C6-C7. The following disc levels are specifically discussed: C2-C3: There is mild bilateral uncovertebral joint osteoarthritis. There is severe right and moderate left facet joint osteoarthritis. There is mild right neural foraminal stenosis. There is no central canal stenosis. C3-C4: There is severe bilateral uncovertebral joint osteoarthritis. There is severe bilateral facet joint osteoarthritis. There is mild bilateral neural foraminal stenosis. There is mild central canal stenosis. C4-C5: There is severe right and moderate left uncovertebral joint osteoarthritis. There is severe ri ght and mild left facet joint osteoarthritis. There is mild bilateral neural foraminal stenosis. Ther e is mild central canal stenosis. C5-C6: There is severe bilateral uncovertebral joint osteoarthritis. There is moderate right and mild left facet joint osteoarthritis. There is mild bilateral neural foraminal stenosis. There is mild ce ntral canal stenosis. C6-C7: There is severe bilateral uncovertebral joint osteoarthritis. There is moderate right and mild left facet joint osteoarthritis. There is mild bilateral neural foraminal stenosis. There is mild ce ntral canal stenosis. C7-T1: There is no uncovertebral joint osteoarthritis. There is severe bilateral facet joint osteoart hritis. There is mild right neural foraminal stenosis. There is no central canal stenosis. IMPRESSION: 1. No fracture. 2. Severe cervical spondylosis. 3. Cervical levoscoliosis. Reviewed, dictated and finalized at location E. NT ANALYST
--- NOTE | ~2023-11-20 | XR_ITS ---
EXAMINATION: XR hip BI 2V w AP pelvis DATE: 11/20/2023 20:08 INDICATION: Pelvic pain. Fall. TECHNIQUE: An anteroposterior view of the pelvis and 2 views of each hip were obtained. COMPARISON: Pelvis and hip radiographs 08/02/2023 FINDINGS: Bone alignment is normal. No fracture. There is mild osteoarthritis of the hips. IMPRESSION: 1. Mild osteoarthritis of the hips. Reviewed, dictated and finalized at location E. ENGINEER FREIGHT
--- NOTE | ~2023-11-20 | XR_ITS ---
EXAMINATION: XR hand RT min 3V DATE: 11/20/2023 20:08 INDICATION: Right hand pain. Fall. TECHNIQUE: 3 views of right hand were obtained. COMPARISON: None. FINDINGS: There is hyperextension of third and fourth proximal interphalangeal joints. No fracture. T here is diffuse osteopenia. There is mild osteoarthritis of lunate-hamate joint, triscaphe joint, fir st carpometacarpal joint, and most of the metacarpophalangeal joints and interphalangeal joints. Ther e is severe osteoarthritis of first interphalangeal joint. IMPRESSION: 1. Polyarticular osteoarthritis. Reviewed, dictated and finalized at location E. RD CHANGER
[2023-11-20 18:37] VITALS: BP 112/85; PULSE 102; RESP 16; TEMP 36.7; O2SAT 97
[2023-11-20 19:16] VITALS: BP 108/81; PULSE 99; RESP 17; O2SAT 97
--- NOTE | 2023-11-20 21:06 | ED.GENADULT ---
HPI - General Adult General Chief complaint: Fall Stated complaint: FALL, FOUND ON GROUND Time Seen by Provider: 11/20/23 19:34 History of Present Illness HPI narrative: patient is a 68-year-old gentleman who presents emergency department with chief complaint of fall. Patient was found on the floor at the group home after he slid down. The patient reports that he has little bit of pain in his right hand and his hips but denies loss of consciousness does report that he takes aspirin and Plavix. Patient has a prior history of a stroke Related Data Home Medications Medication Instructions Recorded Confirmed acetaminophen 325 mg tablet See Rx Instructions .Route 05/30/23 10/30/23 .COMPLEX PRN Pain citalopram 20 mg tablet (Celexa) 20 mg PO DAILY 05/30/23 10/30/23 clopidogrel 75 mg tablet 75 mg PO DAILY 05/30/23 10/30/23 enoxaparin 40 mg/0.4 mL 40 mg subcut DAILY 05/30/23 10/30/23 subcutaneous syringe ergocalciferol (vitamin D2) 1,250 1,250 mcg PO WEEKLY 05/30/23 10/30/23 mcg (50,000 unit) capsule (Drisdol) metoprolol succinate 25 mg 25 mg PO DAILY 05/30/23 10/30/23 tablet,extended release 24 hr rosuvastatin 40 mg tablet 40 mg PO DAILY 05/30/23 10/30/23 lorazepam 0.5 mg tablet 0.5 mg PO DAILY 10/30/23 10/30/23 lorazepam 0.5 mg tablet 0.5 mg PO Q8-10H PRN Anxiety 10/30/23 10/30/23 Allergies Allergy/AdvReac Type Severity Reaction Status Date / Time banana Allergy Hives Verified 10/30/23 12:50 Review of Systems Review of Systems: A 10 system review of systems was completed on the patient and is negative except for what is stated in the HPI. Nursing and ancillary documentation was reviewed. [facility] Past Medical History Medical History Alzheimer's dementia Anxiety and depression CVA (cerebral vascular accident) L middle cerebral artery Gait instability HLD (hyperlipidemia) HTN (hypertension) Muscle weakness Rheumatoid arthritis Vitamin D deficiency Social History Social History Social History: Resides at [facility]. Currently DNR. Smoking status: Unknown if ever smoked Alcohol intake: unknown Substance use: unknown Spiritual care concerns: No Exam Narrative: GENERAL: Well-appearing, well-nourished, and in no acute distress. HEAD: Normocephalic, atraumatic. EYES: PERRLA and EOMI. ENT: Nares clear, no rhinorrhea or epistaxis. Mucous membranes moist. NECK: Supple. CHEST: Clear to auscultation. No respiratory distress. HEART: Regular rate and rhythm. No murmur heard. Normal peripheral pulses. ABDOMEN: Soft, nontender, nondistended, normal active bowel sounds. EXTREMITIES: Normal range of motion. No edema.Right hand is somewhat contracted slight tenderness to palpation of the right hand, mild tenderness to bilateral hips SKIN: Warm, dry, no rash. NEURO: No focal deficits. Alert and pleasantly confused. PSYCH: Normal mood and affect. Course Vital Signs Vital signs: Vital Signs Temperature 36.7 C 11/20/23 18:37 Pulse Rate 102 H 11/20/23 18:37 Respiratory Rate 16 11/20/23 18:37 Blood Pressure 112/85 11/20/23 18:37 Pulse Oximetry 97 11/20/23 18:37 Oxygen Delivery Room Air 11/20/23 18:37 Temperature 36.7 C 11/20/23 18:37 Pulse Rate 99 11/20/23 19:16 Respiratory Rate 17 11/20/23 19:16 Blood Pressure 108/81 11/20/23 19:16 Pulse Oximetry 97 11/20/23 19:16 Oxygen Delivery Room Air 11/20/23 18:37 Medical Decision Making [facility] Narrative Medical decision making narrative: differential diagnosis includes fracture, intracranial hemorrhage, cervical spine fracture CT C-spine was negative CT head showed no acute abnormality there was evidence of old stroke plain film x-rays of the right hand and bilateral hips showed no evidence of fracture. Vital Signs Vital Signs: Vital Sig
[2023-11-20 22:22] VITALS: BP 124/85; PULSE 104; RESP 15; O2SAT 96
== END 2023-11-20 22:40 ==
LOC: ANHED 21:19
PROVIDERS: Emergency Provider Emergency Medicine; PCP Hospitalist
DX: S60.221A Contusion of right hand, initial encounter (principal); M25.552 Pain in left hip; M25.551 Pain in right hip; G30.9 Alzheimer's disease, unspecified; F02.80 Dementia in other diseases classified elsewhere, unspecified severity, without behavioral disturbance, psychotic disturbance, mood disturbance, and anxiety; F41.9 Anxiety disorder, unspecified; F32.A Depression, unspecified; I10 Essential (primary) hypertension; E78.5 Hyperlipidemia, unspecified; M06.9 Rheumatoid arthritis, unspecified; W19.XXXA Unspecified fall, initial encounter
CPT/HCPCS: 70450; 72125; 73130; 73521; 99284

== ENCOUNTER 2023-12-14 01:37 | Inpatient (IN) | payer MEDICARE, SELFPAY ==
[2023-12-14] VITALS (31 sets, daily range): BP systolic 115–138; BP diastolic 67–87; PULSE 72–99; RESP 14–20; TEMP 36.3–37.1; O2SAT 96–99; BMI 21.4
--- NOTE | ~2023-12-14 | CT_ITS ---
EXAMINATION: CT abdomen pelvis w con DATE: 12/14/2023 03:16 INDICATION: Hematuria. TECHNIQUE: Computed tomography (CT) of the abdomen and pelvis was performed with 100 mL Omnipaque 350 intravenous contrast. Automated exposure control and iterative reconstruction technique were employe d. The dose-length product was 352.52 mGy-cm. COMPARISON: None. FINDINGS: The visualized portions of the lung bases demonstrate mild atelectasis. There is a trace ri ght pleural effusion. The heart size is normal. No pericardial effusion. The liver, gallbladder, sple en, pancreas, adrenal glands, and right kidney are normal. There is cortical thinning of left kidney. The prostate is mildly enlarged. There are diffuse bladder wall thickening with mucosal hyperenhance ment, consistent with cystitis. The bladder is decompressed by a Parsons catheter. Stool distends the r ectum. The appendix is normal. There are no pathologically enlarged lymph nodes. There is no free int raperitoneal fluid. There is severe lower lumbar spondylosis. IMPRESSION: 1. Cystitis. Reviewed, dictated and finalized at location A. IFIED MORTICIAN IMPRESSION: 1. Cystitis.
--- NOTE | 2023-12-14 02:05 | ED.GENADULT ---
HPI - General Adult General Chief complaint: Urogenital-Male Stated complaint: hematuria Time Seen by Provider: 12/14/23 01:46 History of Present Illness HPI narrative: Patient is a 68-year-old gentleman who presents emergency department with chief complaint of possible hematuria. Apparently the patient has been having discomfort when he urinates and per the long term staff the patient saturated a brief with blood the facility state when the facility was asked if the patient had clots in his urine they stated we really did look it is brief we think there may be blood there. Related Data Home Medications Medication Instructions Recorded Confirmed acetaminophen 325 mg tablet See Rx Instructions .Route 05/30/23 10/30/23 .COMPLEX PRN Pain citalopram 20 mg tablet (Celexa) 20 mg PO DAILY 05/30/23 10/30/23 clopidogrel 75 mg tablet 75 mg PO DAILY 05/30/23 10/30/23 enoxaparin 40 mg/0.4 mL 40 mg subcut DAILY 05/30/23 10/30/23 subcutaneous syringe ergocalciferol (vitamin D2) 1,250 1,250 mcg PO WEEKLY 05/30/23 10/30/23 mcg (50,000 unit) capsule (Drisdol) metoprolol succinate 25 mg 25 mg PO DAILY 05/30/23 10/30/23 tablet,extended release 24 hr rosuvastatin 40 mg tablet 40 mg PO DAILY 05/30/23 10/30/23 lorazepam 0.5 mg tablet 0.5 mg PO DAILY 10/30/23 10/30/23 lorazepam 0.5 mg tablet 0.5 mg PO Q8-10H PRN Anxiety 10/30/23 10/30/23 Allergies Allergy/AdvReac Type Severity Reaction Status Date / Time banana Allergy Hives Verified 12/14/23 01:49 Review of Systems Review of Systems: A 10 system review of systems was completed on the patient and is negative except for what is stated in the HPI. Nursing and ancillary documentation was reviewed. [facility] Past Medical History Medical History Alzheimer's dementia Anxiety and depression CVA (cerebral vascular accident) L middle cerebral artery Gait instability HLD (hyperlipidemia) HTN (hypertension) Muscle weakness Rheumatoid arthritis Vitamin D deficiency Social History Social History Social History: Resides at [facility]. Currently DNR. Smoking status: Unknown if ever smoked Alcohol intake: unknown Substance use: unknown Spiritual care concerns: No Exam Narrative: GENERAL: Well-appearing, well-nourished, and in no acute distress. HEAD: Normocephalic, atraumatic. EYES: PERRLA and EOMI. ENT: Nares clear, no rhinorrhea or epistaxis. Mucous membranes moist. NECK: Supple. CHEST: Clear to auscultation. No respiratory distress. HEART: Regular rate and rhythm. No murmur heard. Normal peripheral pulses. ABDOMEN: Soft, nontender, nondistended, normal active bowel sounds. EXTREMITIES: Normal range of motion. No edema. : No blood at the meatus. Small drop of urine that may have a slightly pink tinge to it there is soft stool in the rectal vault no signs of impaction no gross blood SKIN: Warm, dry, no rash. NEURO: No focal deficits. Alert and oriented x1. PSYCH: Normal mood and affect. Course Vital Signs Vital signs: Vital Signs Temperature 36.6 C 12/14/23 01:38 Pulse Rate 74 12/14/23 01:38 Respiratory Rate 20 12/14/23 01:38 Blood Pressure 115/80 12/14/23 01:38 Pulse Oximetry 99 12/14/23 01:38 Oxygen Delivery Room Air 12/14/23 01:38 Temperature 36.6 C 12/14/23 01:38 Pulse Rate 84 12/14/23 03:31 Respiratory Rate 16 12/14/23 03:31 Blood Pressure 130/80 12/14/23 03:31 Pulse Oximetry 97 12/14/23 03:31 Oxygen Delivery Room Air 12/14/23 01:38 Medical Decision Making MDM Narrative Medical decision making narrative: Differential diagnosis includes hemorrhagic cystitis, hematuria, UTI, Urinalysis was obtained via straight catheterization patient had a large amount of blood in the bladder. Parsons catheter was placed and CBI was initiated which was able
[2023-12-14] MEDS: LIDOCAINE HCL 2% GEL UROJET 10 ML PKG (02:17)
[2023-12-14 02:24] LABS: Basophils Percent Auto 0.3 % (0.2-1.2); Eosinophils Absolute Auto 0.2 K/mm3 (0-0.3); Eosinophils Percent Auto 2.9 % (0-4.4); Hematocrit 43.1 % (42.0-52.0); Hemoglobin 13.9 g/dL (14.0-18.0); Immature Granulocyte Absolute 0.01 K/mm3 (0.00-0.031); Immature Granulocyte Percent A 0.1 % (0-0.5); Lymphocytes Percent Auto 25.5 % (18.3-44.2); Mean Corpuscular HGB Conc 32.3 g/dl (32-36); Mean Corpuscular Hemoglobin 29.7 pg (26-34); Mean Corpuscular Volume 92.1 fl (80-100); Mean Platelet Volume 9.2 fl (7.4-10.4); Monocytes Absolute Auto 0.8 K/mm3 (0.1-0.6); Monocytes Percent Auto 10.4 % (2.6-8.5); Neutrophils Absolute Auto 4.8 K/mm3 (1.3-6.7); Neutrophils Percent Auto 60.8 % (45.5-73.1); Platelet Count Result 237 k/mm3 (150-375); Red Blood Count 4.68 M/mm3 (4.6-6.20); Red Cell Distribution Width 13.6 % (11.5-14.5); White Blood Count 7.9 K/mm3 (4.5-10.0)
[2023-12-14 02:33] LABS: Alanine Aminotransferase 49 U/L (6-50); Albumin Level 3.8 g/dL (3.5-5.1); Alkaline Phosphatase 62 U/L (38-126); Anion Gap 5 mmol/L (8-16); Aspartate Amino Transferase 39 U/L (17-59); Bilirubin,Total 0.4 mg/dL (0.2-1.3); Blood Urea Nitrogen 20 mg/dL (9-20); Calcium 9.5 mg/dL (8.4-10.2); Carbon Dioxide 28 mmol/L (22-30); Chloride 103 mmol/L (98-107); Estimated Glomerular Filt Rate > 60; Glucose 106 mg/dL (65-110); Potassium 4.3 mmol/L (3.4-5.0); Sodium 136 mmol/L (137-145)
[2023-12-14 02:37] LABS: Prothrombin Time 13.5 Seconds (11.1-14.7)
[2023-12-14 02:37] LABS: Appearance Urine Turbid (Clear); Bacteria Urine 4+ /hpf; Bilirubin Urine 1+ (Negative); Blood Urine 2+ (Negative); Color Urine Red (Yellow); Glucose Urine UA Negative (Negative); Ketones Urine Negative (Negative); Leukocyte Esterase Ur 3+ LEU/UL (Negative); Need Manual Microscopic Reviewed; Nitrate Urine Positive (Negative); Non Pathogenic Casts >20; Protein Urine 2+ mg/dL (Negative); RBC Urine >100 /hpf (0-2); Specific Grav Ur 1.018 (1.001-1.035); Squamous Epithelial Cell Urine Occasional /hpf (Few); Urobilinogen Urine 0.2 mg/dL (<2.0); WBC Urine >100 /hpf; pH Urine 8.5 (5.0-9.0)
[2023-12-14 02:38] LABS: Partial Thromboplastin Time 28.2 SECONDS (22.3-36.8)
[2023-12-14 02:39] LABS: Add Urine Microscopic? YES
--- NOTE | 2023-12-14 03:01 | PC.NURSE ---
Patient taken to CT via stretcher at this time. Patients 3way cath CBI paused at this time, 2400 ml output of clear pink tinged fluid.
--- NOTE | 2023-12-14 03:33 | PC.NURSE ---
Patients CBI still paused at this time, still draining pink colored urine into martinez bag.
--- NOTE | 2023-12-14 05:01 | PC.NURSE ---
Patient CBI still paused at this time, clear yellow urine draining in martinez bag. No blood or clots noted.
[2023-12-14] MEDS: SODIUM CHLORIDE 0.9% IV 1,000 ML 125 ML IV CONT ×2 (08:44→16:40)
--- NOTE | 2023-12-14 10:27 | PM.IMHP ---
H&P: HPI History of Present Illness Date/Time: 12/14/23 10:27 Chief Complaint: Hematuria Narrative: 68yo male with hx of CVA, dementia, HTN and RA brought in to the ED for complaints of hematuria. Patient is alert but confused and unable to provide history. Patient noted to have blood in the diaper at the facility. Patient was having discomfort with urination. In the ED, patient was hemodynamically stable. CBC and CMP were essentially normal. Hgb was 13.9. UA was red and turbid with 2+ blood, Nitrate positive, >100RBC, >100WBC and 4+ bacteria. CT abdomen/pelvis showing cystitis and stool distends the rectum. He was started on Rocephin and IV fluids. He was admitted for further care. Urology consulted. CBI started. Review of Systems Review of Systems: ROS unobtainable: Yes unobtainable due to mental status PMFSH Past Medical History Medical History Alzheimer's dementia Anxiety and depression CVA (cerebral vascular accident) L middle cerebral artery Gait instability HLD (hyperlipidemia) HTN (hypertension) Muscle weakness Rheumatoid arthritis Vitamin D deficiency Surgical History Surgical History (Updated 12/14/23 @ 10:52 by Huy Jhaveri MD) Surgical history unknown Family History Family History (Updated 12/14/23 @ 10:52 by Huy Jhaveri MD) Other Family history unknown Social History Social History Social History: Resides at [facility]. Currently DNR. Smoking status: Never smoker Alcohol intake: never Substance use: former Substance use type: marijuana Last use: 2019 Spiritual care concerns: No Meds Home Medications and Allergies Home Medications Medication Instructions Recorded Confirmed Type acetaminophen 325 mg tablet 650 mg PO Q4-5H PRN Pain 05/30/23 12/14/23 History citalopram 20 mg tablet (Celexa) 20 mg PO DAILY 05/30/23 12/14/23 History clopidogrel 75 mg tablet 75 mg PO DAILY 05/30/23 12/14/23 History enoxaparin 40 mg/0.4 mL 40 mg subcut DAILY 05/30/23 12/14/23 History subcutaneous syringe ergocalciferol (vitamin D2) 1,250 1,250 mcg PO WEEKLY 05/30/23 12/14/23 History mcg (50,000 unit) capsule (Drisdol) metoprolol succinate 25 mg 25 mg PO DAILY 05/30/23 12/14/23 History tablet,extended release 24 hr rosuvastatin 40 mg tablet 40 mg PO DAILY 05/30/23 12/14/23 History lorazepam 0.5 mg tablet 0.5 mg PO DAILY PRN Anxiety 10/30/23 12/14/23 History aspirin 81 mg tablet,delayed 81 mg PO QAM #30 tabs 11/05/23 12/14/23 Rx release levetiracetam 500 mg tablet 500 mg PO Q12HR #60 tabs 11/05/23 12/14/23 Rx (Keppra) Allergies Allergy/AdvReac Type Severity Reaction Status Date / Time banana Allergy Hives Verified 12/14/23 01:49 Vital Signs Vital Signs - 24 hr 12/14/23 01:38 12/14/23 01:47 12/14/23 02:00 Temperature 97.9 F Pulse Rate 74 75 72 Respiratory Rate 20 17 16 Blood Pressure 115/80 Pulse Oximetry 99 98 98 Oxygen Delivery Room Air 12/14/23 02:01 12/14/23 02:15 12/14/23 02:30 Temperature Pulse Rate 81 85 84 Respiratory Rate 19 15 18 Blood Pressure 119/77 Pulse Oximetry 97 97 98 Oxygen Delivery 12/14/23 02:45 12/14/23 02:46 12/14/23 03:15 Temperature Pulse Rate 85 87 Respiratory Rate 17 16 Blood Pressure 136/87 Pulse Oximetry 98 97 97 Oxygen Delivery 12/14/23 03:19 12/14/23 03:30 12/14/23 03:31 Temperature Pulse Rate 84 81 84 Respiratory Rate 14 15 16 Blood Pressure 133/67 130/80 Pulse Oximetry 98 97 97 Oxygen Delivery 12/14/23 03:32 12/14/23 03:45 12/14/23 04:00 Temperature Pulse Rate 81 81 88 Respiratory Rate 16 16 18 Blood Pressure Pulse Oximetry 97 Oxygen Delivery 12/14/23 04:15 12/14/23 04:16 12/14/23 04:30 Temperature Pulse Rate 77 86 87 Respiratory Rate 16 17 16 Blood Pressure 132/81 Pulse Oximetry
[2023-12-14] MEDS: CITALOPRAM HYDROBROMIDE 20 MG TABLET PO (14:29)
[2023-12-14] MEDS: METOPROLOL SUCCINATE EXT REL 25 MG TABCR PO (14:29)
[2023-12-14] MEDS: levETIRAcetam 500 MG TABLET PO ×2 (14:29→21:03)
--- NOTE | 2023-12-14 16:34 | WPDURCON ---
Assessment and Plan Assessment and plan (1) Hematuria: Code(s): R31.9 - Hematuria, unspecified Status: Acute Assessment and Plan: Parsons hand irrigated at bedside by urology with return of clear lightly blood tinged urine. Suspect hematuria is secondary to hemorrhagic cystitis. Discontinue CBI. Discussed with RN to disconnect CBI and place catheter plug on 3rd port of 3-way Parsons. (2) Acute UTI: Code(s): N39.0 - Urinary tract infection, site not specified Status: Acute Assessment and Plan: UA suspicious for UTI with >100 WBC and >100 RBC with +nitrite and +leukocytes. Continue broad spectrum antibiotics and tailor to culture sensitivities. Urology Consult Note HPI Date Seen: 12/14/23 Requesting Physician: Akanksha Thomas DO Primary Care Provider: Jozef France MD Consult Narrative Narrative: Sidney Mcgill is a 68 year old male with PMHx of CVA on ASA/Plavix, dementia, HTN, HLD for whom urology was consulted for UTI with gross hematuria. Pt presented overnight and had UA suspicious for UTI. He had a 3-way catheter placed in the ER which was irrigated with mild clot return and was started on CBI. Pt has dementia and is unable to provide any meaningful history. Review of Systems Review of Systems: Unable to reliably obtain given patient's dementia PMFSH Past Medical History Medical History Alzheimer's dementia Anxiety and depression CVA (cerebral vascular accident) L middle cerebral artery Gait instability HLD (hyperlipidemia) HTN (hypertension) Muscle weakness Rheumatoid arthritis Vitamin D deficiency Surgical History Surgical History (Updated 12/14/23 @ 10:52 by Huy Jhaveri MD) Surgical history unknown Family History Family History (Updated 12/14/23 @ 10:52 by Huy Jhaveri MD) Other Family history unknown Social History Social History Social History: Resides at [facility]. Currently DNR. Smoking status: Never smoker Alcohol intake: never Substance use: former Substance use type: marijuana Last use: 2019 Spiritual care concerns: No Meds Home Medications and Allergies Home Medications Medication Instructions Recorded Confirmed Type acetaminophen 325 mg tablet 650 mg PO Q4-5H PRN Pain 08/17/23 03/02/24 History citalopram 20 mg tablet (Celexa) 20 mg PO DAILY 05/30/23 12/14/23 History clopidogrel 75 mg tablet 75 mg PO DAILY 05/30/23 12/14/23 History enoxaparin 40 mg/0.4 mL 40 mg subcut DAILY 05/30/23 12/14/23 History subcutaneous syringe ergocalciferol (vitamin D2) 1,250 1,250 mcg PO WEEKLY 05/30/23 12/14/23 History mcg (50,000 unit) capsule (Drisdol) metoprolol succinate 25 mg 25 mg PO DAILY 05/30/23 12/14/23 History tablet,extended release 24 hr rosuvastatin 40 mg tablet 40 mg PO DAILY 05/30/23 12/14/23 History lorazepam 0.5 mg tablet 0.5 mg PO DAILY PRN Anxiety 10/30/23 12/14/23 History aspirin 81 mg tablet,delayed 81 mg PO QAM #30 tabs 11/05/23 12/14/23 Rx release levetiracetam 500 mg tablet 500 mg PO Q12HR #60 tabs 11/05/23 12/14/23 Rx (Keppra) Allergies Allergy/AdvReac Type Severity Reaction Status Date / Time banana Allergy Hives Verified 12/14/23 01:49 Vital Signs Vital Signs - 24 hr 12/14/23 01:38 12/14/23 01:47 12/14/23 02:00 Temperature 36.6 C Pulse Rate 74 75 72 Respiratory Rate 20 17 16 Blood Pressure 115/80 Pulse Oximetry 99 98 98 Oxygen Delivery Room Air 12/14/23 02:01 12/14/23 02:15 12/14/23 02:30 Temperature Pulse Rate 81 85 84 Respiratory Rate 19 15 18 Blood Pressure 119/77 Pulse Oximetry 97 97 98 Oxygen Delivery 12/14/23 02:45 12/14/23 02:46 12/14/23 03:15 Temperature Pulse Rate 85 87 Respiratory Rate 17 16 Blood Pressure 136/87 Pulse Oximetry 98 97 97 Oxygen Delivery 12/14/23 03:19
[2023-12-15 06:00] VITALS: BP 113/73; PULSE 67; RESP 16; TEMP 36.4; O2SAT 96
[2023-12-15] MEDS: CITALOPRAM HYDROBROMIDE 20 MG TABLET PO (08:25)
[2023-12-15] MEDS: levETIRAcetam 500 MG TABLET PO ×2 (08:25→20:26)
[2023-12-15] MEDS: CLOPIDOGREL BISULFATE 75 MG TABLET PO (08:25)
[2023-12-15] MEDS: ASPIRIN 81 MG ENTERIC TABLET PO (08:25)
[2023-12-15] MEDS: ROSUVASTATIN 10 MG TABLET 40 MG PO (08:25)
[2023-12-15 08:26] VITALS: PULSE 69
[2023-12-15] MEDS: METOPROLOL SUCCINATE EXT REL 25 MG TABCR PO (08:26)
[2023-12-15 09:29] VITALS: O2SAT 97
--- NOTE | 2023-12-15 11:00 | PM.IMPN ---
Progress Note: A&P Assessment and Plan (1) Hematuria: Code(s): R31.9 - Hematuria, unspecified <Nataliia Joshi Student - Last Filed: 12/15/23 12:23> Status: Acute <Nataliia Joshi Student - Last Filed: 12/15/23 12:23> Assessment and Plan: Patient presents with hematuria. UA notes hematuria. CT scan showing cystitis. Parsons placed and CBI started. Urine has cleared. On Lovenox, ASA and Plavix normally which we will hold. UA also consistent with UTI so suspect this is hemorrhagic cystitis. Urology consulted and their input is appreciated. Continue Rocephin Follow up on urine culture Discontinued CBI per urology recommendations Resumed ASA and Plavix <Nataliia Joshi Student - Last Filed: 12/15/23 12:23> Patient presents with hematuria. UA notes hematuria. CT scan showing cystitis. Parsons placed and CBI started. Urine has cleared. On Lovenox, ASA and Plavix normally which we were held UA also consistent with UTI so suspect this is hemorrhagic cystitis. Urology consulted and their input is appreciated. Continue Rocephin Follow up on urine culture Discontinued CBI per urology recommendations Resumed ASA and Plavix Stop IVF <Huy Jhaveri MD - Last Filed: 12/15/23 16:38> (2) Acute UTI: Code(s): N39.0 - Urinary tract infection, site not specified <Nataliia Joshi Student - Last Filed: 12/15/23 12:23> Status: Acute <Nataliia Joshi Student - Last Filed: 12/15/23 12:23> Assessment and Plan: As above <Nataliia Joshi Student - Last Filed: 12/15/23 12:23> As above <Huy Jhaveri MD - Last Filed: 12/15/23 16:38> (3) Seizure: Code(s): R56.9 - Unspecified convulsions <Nataliia Joshi Student - Last Filed: 12/15/23 12:23> Status: Acute <Nataliia Joshi Student - Last Filed: 12/15/23 12:23> Assessment and Plan: Stable. Resume Keppra <Nataliia Joshi Student - Last Filed: 12/15/23 12:23> Stable. Resume Jasiel <Huy Jhaveri MD - Last Filed: 12/15/23 16:38> (4) Dementia: Code(s): F03.90 - Unspecified dementia, unspecified severity, without behavioral disturbance, psychotic disturbance, mood disturbance, and anxiety <Nataliia Joshi Student - Last Filed: 12/15/23 12:23> Status: Acute <Nataliia Joshi Student - Last Filed: 12/15/23 12:23> Assessment and Plan: Stable. Probably vascular. Continue nutritional supplementation Encourage PO intake <Nataliia Joshi Student - Last Filed: 12/15/23 12:23> Stable. Probably vascular. Continue nutritional supplementation Encourage PO intake <Huy Jhaveri MD - Last Filed: 12/15/23 16:38> (5) CVA (cerebral vascular accident): Code(s): I63.9 - Cerebral infarction, unspecified <Nataliia Joshi Student - Last Filed: 12/15/23 12:23> Status: Acute <Nataliia Joshi Student - Last Filed: 12/15/23 12:23> Assessment and Plan: Stable. Resume Crestor Resume ASA and Plavix when able <Mahin Barbour - Last Filed: 12/15/23 12:23> Stable. Continue Crestor Resume ASA and Plavix <Huy Jhaveri MD - Last Filed: 12/15/23 16:38> (6) HTN (hypertension): Qualifiers: Hypertension type: primary hypertension Qualified Code(s): I10 - Essential (primary) hypertension <Nataliia Joshi Student - Last Filed: 12/15/23 12:23> Code(s): I10 - Essential (primary) hypertension <Nataliia Joshi Student - Last Filed: 12/15/23 12:23> Status: Acute <Nataliia E. Bobrowski, Student - Last Filed: 12/15/23 12:23> Assessment and Plan: Patient's blood pressure stable. Resume metoprolol. Follow <Nataliia Joshi, Student - Last Filed: 12/15/23 12:23> Patient's blood pressure was reviewed on 12/14 Blood pressure remains well controlled. Will continue to follow
[2023-12-15] MEDS: BISACODYL 10 MG SUPPOSITORY RECTAL (12:07)
[2023-12-15] MEDS: polyethylene glycoL 3350 17 GM POWD.PACK PO (12:07)
--- NOTE | 2023-12-15 12:41 | WPDUROPN2 ---
Progress Note: A&P Assessment and Plan (1) Hematuria: Code(s): R31.9 - Hematuria, unspecified Status: Acute Assessment and Plan: Resolved. Suspect this was secondary to hemorrhagic cystitis. (2) Acute UTI: Code(s): N39.0 - Urinary tract infection, site not specified Status: Acute Assessment and Plan: Urine culture pending. Clear for discharge from urology standpoint upon culture finalization and once appropriate antibiotic regimen has been determined. Subjective Subjective Date/Time Seen: 12/15/23 12:41 Interval history: NAEO. Patient resting comfortably in bed. States he feels better compared to when to arrived to the hospital. Review of Systems Cardiovascular: Cardiovascular: Denies chest pain, Denies lightheadedness, Denies palpitations and Denies dyspnea Respiratory: Respiratory: Denies dyspnea Gastrointestinal: Gastrointestinal: Denies diarrhea, Denies nausea and Denies vomiting Genitourinary: Genitourinary: Denies hematuria and Denies dysuria Endocrine: Endocrine: Denies palpitations Exam Const: General: comfortable and no acute distress Resp: Effort & Inspection: normal respiratory effort Cardio: Rate: regular rate GI: Inspection: non-distended GI Palp: Yes Soft to palpation and No Tenderness to palpation present (GI) Urinary Catheter: Urinary Catheter: patent and draining and urine clear Objective Data Vital Signs Vital Signs: Vital Signs - 24 hr 12/14/23 14:00 12/14/23 21:11 12/14/23 20:00 Temperature 36.5 C 36.9 C Pulse Rate 74 77 Respiratory Rate 20 14 Blood Pressure 125/76 119/79 Pulse Oximetry 96 96 Oxygen Delivery Room Air 12/15/23 06:00 12/15/23 08:26 12/15/23 08:00 Temperature 36.4 C Pulse Rate 67 69 Respiratory Rate 16 Blood Pressure 113/73 Pulse Oximetry 96 Oxygen Delivery Room Air 12/15/23 09:29 Temperature Pulse Rate Respiratory Rate Blood Pressure Pulse Oximetry 97 Oxygen Delivery Room Air Intake/Output Intake/Output: Intake & Output 12/12/23 12/13/23 12/14/23 12/15/23 23:59 23:59 23:59 23:59 Intake Total 1288 386 Output Total 3050 450 Balance -1762 -64 Meds/Results Medications: Active Medications Generic Name Dose Route Start Last Admin Trade Name Freq PRN Reason Stop Dose Admin Acetaminophen 650 mg 12/14/23 11:00 Acetaminophen 325 Mg Tablet PO Q4-6H PRN Pain Rated 1-3 Aspirin 81 mg 12/15/23 09:00 12/15/23 08:25 Aspirin 81 Mg Enteric Tablet PO 81 mg QAM ISIDRO Administration Bisacodyl 10 mg 12/15/23 11:44 Bisacodyl 10 Mg Suppository RECTAL QAM PRN Constipation Citalopram Hydrobromide 20 mg 12/14/23 11:05 12/15/23 08:25 Citalopram Hydrobromide 20 Mg Tablet PO 20 mg DAILY ISIDRO Administration Clopidogrel Bisulfate 75 mg 12/15/23 09:00 12/15/23 08:25 Clopidogrel Bisulfate 75 Mg Tablet PO 75 mg DAILY ISIDRO Administration Ceftriaxone Sodium 1 gm in 50 mls @ 100 mls/hr 12/15/23 05:00 12/15/23 06:17 Rocephin 1 Gm/Ns 50 Ml IVPB 100 mls/hr Q24H ISIDRO Administration Levetiracetam 500 mg 12/14/23 11:05 12/15/23 08:25 Levetiracetam 500 Mg Tablet PO 500 mg Q12HR ISIDRO Administration Lorazepam 0.5 mg 12/14/23 11:00 Lorazepam (*Crx) 0.5 Mg Tablet PO DAILY PRN Anxiety Metoprolol Succinate 25 mg 12/14/23 11:05 12/15/23 08:26 Metoprolol Succinate Ext Rel 25 Mg Tabcr PO 25 mg DAILY ISIDRO Administration Polyethylene Glycol 17 gm 12/15/23 11:45 12/15/23 12:07 Polyethylene Glycol 3350 17 Gm Powd.Pack PO 17 gm QAM ISIDRO Administration Rosuvastatin Calcium 40 mg 12/15/23 09:00 12/15/23 08:25 Rosuvastatin 10 Mg Tablet PO 40 mg DAILY ISIDRO Administration Radiology Results: ITS Impressions Abdomen/Pelvis CT 12/14/23 06:29 IMPRESSION: 1. Cystitis.
[2023-12-15 14:00] VITALS: BP 122/70; PULSE 66; RESP 18; TEMP 36.6; O2SAT 96
[2023-12-15 21:38] VITALS: BP 127/72; PULSE 65; RESP 14; TEMP 36.6; O2SAT 96
[2023-12-16 05:47] VITALS: BP 123/71; PULSE 87; RESP 18; TEMP 36.6; O2SAT 97
[2023-12-16 07:58] LABS: Anion Gap 4 mmol/L (8-16); Blood Urea Nitrogen 16 mg/dL (9-20); Calcium 9.4 mg/dL (8.4-10.2); Carbon Dioxide 28 mmol/L (22-30); Chloride 103 mmol/L (98-107); Estimated CRCL calculation 83 ml/min; Estimated Glomerular Filt Rate > 60; Glucose 136 mg/dL (65-110); Sodium 135 mmol/L (137-145)
[2023-12-16] MEDS: CITALOPRAM HYDROBROMIDE 20 MG TABLET PO (09:20)
[2023-12-16] MEDS: ROSUVASTATIN 10 MG TABLET 40 MG PO (09:20)
[2023-12-16] MEDS: METOPROLOL SUCCINATE EXT REL 25 MG TABCR PO (09:20)
[2023-12-16] MEDS: levETIRAcetam 500 MG TABLET PO (09:20)
[2023-12-16] MEDS: ASPIRIN 81 MG ENTERIC TABLET PO (09:20)
[2023-12-16] MEDS: CLOPIDOGREL BISULFATE 75 MG TABLET PO (09:20)
--- NOTE | 2023-12-16 09:31 | WPDUROPN2 ---
Progress Note: A&P Assessment and Plan (1) Hematuria: Code(s): R31.9 - Hematuria, unspecified Status: Acute Assessment and Plan: Resolved. Suspect this was secondary to hemorrhagic cystitis. CBI was discontinued on 12/14/2023. Will plan for Parsons removal/voiding trial today as urine remains clear (2) Acute UTI: Code(s): N39.0 - Urinary tract infection, site not specified Status: Acute Assessment and Plan: Preliminary urine culture with Gram-negative rods. Okay for discharge from urology standpoint upon culture finalization and once appropriate antibiotic regimen has been determined. Subjective Subjective Date/Time Seen: 12/16/23 09:31 Interval history: Sidney is resting comfortably. He is not able to provide any history given his dementia. Parsons is in place draining crystal clear urine. He is afebrile and his vital signs are stable. Review of Systems Review of Systems: ROS unobtainable: Yes unobtainable due to mental status Exam Narrative: General: Awake, alert, comfortable, no acute distress HEENT: Normocephalic, atraumatic, sclerae anicteric Respiratory: Normal respiratory effort, no accessory muscle use Abdomen: Nondistended, soft, nontender : Parsons catheter draining clear, light yellow urine Skin: Normal coloration, warm and dry Neurologic: No focal neuro deficits noted Psychiatric: Confused Objective Data Vital Signs Vital Signs: Vital Signs - 24 hr 12/15/23 14:00 12/15/23 20:00 12/15/23 21:38 Temperature 97.8 F 98 F Pulse Rate 66 65 Respiratory Rate 18 14 Blood Pressure 122/70 127/72 Pulse Oximetry 96 96 Oxygen Delivery Room Air 12/16/23 05:47 12/16/23 08:00 Temperature 97.8 F Pulse Rate 87 Respiratory Rate 18 Blood Pressure 123/71 Pulse Oximetry 97 Oxygen Delivery Room Air Intake/Output Intake/Output: Intake & Output 12/13/23 12/14/23 12/15/23 12/16/23 23:59 23:59 23:59 23:59 Intake Total 1288 672 406 Output Total 3050 960 350 Balance -1772 -288 56 Meds/Results Medications: Active Medications Generic Name Dose Route Start Last Admin Trade Name Freq PRN Reason Stop Dose Admin Acetaminophen 650 mg 03/02/24 11:00 Acetaminophen 325 Mg Tablet PO Q4-6H PRN Pain Rated 1-3 Aspirin 81 mg 12/15/23 09:00 12/16/23 09:20 Aspirin 81 Mg Enteric Tablet PO 81 mg QAM [facility] Administration Bisacodyl 10 mg 12/15/23 11:44 Bisacodyl 10 Mg Suppository RECTAL QAM PRN Constipation Citalopram Hydrobromide 20 mg 12/14/23 11:05 12/16/23 09:20 Citalopram Hydrobromide 20 Mg Tablet PO 20 mg DAILY ISIDRO Administration Clopidogrel Bisulfate 75 mg 12/15/23 09:00 12/16/23 09:20 Clopidogrel Bisulfate 75 Mg Tablet PO 75 mg DAILY [facility] Administration Ceftriaxone Sodium 1 gm in 50 mls @ 100 mls/hr 12/15/23 05:00 12/16/23 05:55 Rocephin 1 Gm/Ns 50 Ml IVPB Infused Q24H ISIDRO Infusion Levetiracetam 500 mg 12/14/23 11:05 12/16/23 09:20 Levetiracetam 500 Mg Tablet PO 500 mg Q12HR ISIDRO Administration Lorazepam 0.5 mg 12/14/23 11:00 Lorazepam (*Crx) 0.5 Mg Tablet PO DAILY PRN Anxiety Metoprolol Succinate 25 mg 12/14/23 11:05 12/16/23 09:20 Metoprolol Succinate Ext Rel 25 Mg Tabcr PO 25 mg DAILY ISIDRO Administration Polyethylene Glycol 17 gm 12/15/23 11:45 12/16/23 09:25 Polyethylene Glycol 3350 17 Gm Powd.Pack PO Not Given QAM [facility] Rosuvastatin Calcium 40 mg 12/15/23 09:00 12/16/23 09:20 Rosuvastatin 10 Mg Tablet PO 40 mg DAILY ISIDRO Administration Radiology Results: ITS Impressions Abdomen/Pelvis CT 12/14/23 06:29 IMPRESSION: 1. Cystitis. Labs Labs: Laboratory Results - last 24 hr 12/16/23 06:40 Sodium 135 L Potassium 4.0 Chloride 103 Carbon Dioxide 28 Anion Gap 4 L BUN 16 Creatinine 0.70 Estim Creat Clear Calc 83 Estimated GFR > 60 Glucose 136 H Calciu
[2023-12-16 13:31] VITALS: BP 112/80; PULSE 68; RESP 15; TEMP 36.5; O2SAT 95
--- NOTE | 2023-12-16 13:51 | PM.DS ---
DS: Admitting Diagnosis Discharge Date 12/16/23 Admitting Diagnosis Hematuria DS: Discharge Diagnosis Discharge Diagnosis (1) Hematuria: Code(s): R31.9 - Hematuria, unspecified Status: Acute (2) Acute UTI: Code(s): N39.0 - Urinary tract infection, site not specified Status: Acute (3) Seizure: Code(s): R56.9 - Unspecified convulsions Status: Acute (4) Dementia: Code(s): F03.90 - Unspecified dementia, unspecified severity, without behavioral disturbance, psychotic disturbance, mood disturbance, and anxiety Status: Acute (5) CVA (cerebral vascular accident): Code(s): I63.9 - Cerebral infarction, unspecified Status: Acute (6) HTN (hypertension): Qualifiers: Hypertension type: primary hypertension Qualified Code(s): I10 - Essential (primary) hypertension Code(s): I10 - Essential (primary) hypertension Status: Acute DS: Summary Hospital Course Reason for hospitalization: 68yo male with hx of CVA, dementia, HTN and RA brought in to the ED for complaints of hematuria.? Please see H&p for details. Hospital Course: Patient presents with hematuria. UA notes hematuria. CT scan showing cystitis. Parsons placed and CBI started. Urine cleared. On Lovenox, ASA and Plavix normally which was held. UA also consistent with UTI so suspect this is hemorrhagic cystitis. Urology consulted and their input is appreciated. He was started on Rocephin. Able to stop CBI and urine remained clear. ASA and Plavix resumed without issue. Urine culture returned growing Proteus sensitive to Rocephin. He overall did well and was able to be discharged on 12/16/23. Discussed with brother. All questions answered. Status at Discharge Cognitive/behavioral status at discharge: stable Time Spent with Patient Time attestation: Total time spent providing and/or coordinating discharge services: 35 minutes Time spent: Greater than 30 minutes Exam Narrative: AF 97.8 123/71 87 18 97% ra Gen - NARD Chest - clear bilaterally. CV - RRR S1/S2 Abd - Soft, NT/ND, Positive BS Ext - No pedal edema Neuro - Alert but confused Psych - Nml mood and affect Skin - Warm and dry. decreased (now faint) erythema abd wall DS: Data Data Completed and Pending Labs on day of discharge: Labs from last 24 hours 12/16/23 06:40 Sodium 135 L Potassium 4.0 Chloride 103 Carbon Dioxide 28 Anion Gap 4 L BUN 16 Creatinine 0.70 Estim Creat Clear Calc 83 Estimated GFR > 60 Glucose 136 H Calcium 9.4 Discharge Plan Discharge Attending physician on discharge: Huy Jhaveri Consulting providers: Vladislav Sewell Discharging Clinician: Huy Jhaveri Anticipated Discharge Date/Time: 12/16/23 14:02 Patient Disposition: NH [facility] Living Activity: as tolerated Diet: heart healthy Discharge Instructions: Check blood pressure 1 to 2 times a day. Record for the doctor's review. Take precautions to avoid falls. Rise slowly from a lying or sitting position. Contact the doctor if the patient has fevers or other worrisome symptoms. Avoid NSAIDs (ibuprofen, naproxen, Aleve). Tylenol is safe to take. Follow-up with the provider at the facility. Thank you for using [facility] for your health care needs. Patient Instructions: Antibiotic Form Stand Alone Forms: General Discharge Information Discharge Medications: New polyethylene glycol 3350 [Miralax] 17 gram Powder In Packet 17 g PO QAM Qty: 30 0RF cefdinir 300 mg capsule 300 mg PO Q12H Qty: 8 0RF Rx Instructions: Start on 12/17/23 through 12/20/23 Continued acetaminophen 325 mg Tablet 650 mg PO Q4-5H PRN (Reason: Pain) clopidogrel 75 mg Tablet 75 mg PO DAILY citalopram [Celexa] 20 mg Tablet 20 mg PO DAILY metoprolol succinate 25 mg Tablet Extended Release 24 Hr 25 mg PO DAILY ergocalciferol (vit
[2023-12-16 15:29] LABS: SARS-CoV-2 RNA PCR Negative (Negative)
== END 2023-12-16 18:05 | DRG 690 ==
LOC: ANHED 05:46 → ANH3MEDSUR 05:47
PROVIDERS: Admitting Provider Internal Medicine; Emergency Provider Emergency Medicine; PCP Hospitalist; Visit Provider Internal Medicine
DX: N30.91 Cystitis, unspecified with hematuria (principal); I10 Essential (primary) hypertension; E78.5 Hyperlipidemia, unspecified; E55.9 Vitamin D deficiency, unspecified; B96.4 Proteus (mirabilis) (morganii) as the cause of diseases classified elsewhere; M06.9 Rheumatoid arthritis, unspecified; R26.89 Other abnormalities of gait and mobility; R56.9 Unspecified convulsions; F02.80 Dementia in other diseases classified elsewhere, unspecified severity, without behavioral disturbance, psychotic disturbance, mood disturbance, and anxiety; G30.9 Alzheimer's disease, unspecified; Z20.822 Contact with and (suspected) exposure to COVID-19; Z79.02 Long term (current) use of antithrombotics/antiplatelets; Z86.73 Personal history of transient ischemic attack (TIA), and cerebral infarction without residual deficits
CPT/HCPCS: 36415; 74177; 80048; 80053; 81001; 85025; 85610; 85730; 87077; 87086; 87088; 87186; 87635; 96365; 99285; A9270; G0378; J0696; J7030; Q9967

== ENCOUNTER 2023-12-17 18:14 | Emergency (ER) | payer MEDICARE, SELFPAY ==
[2023-12-17 20:51] VITALS: BP 114/79; PULSE 88; RESP 16; O2SAT 98
[2023-12-17 22:19] VITALS: BP 197/98; PULSE 81; RESP 15; O2SAT 98
[2023-12-17 23:12] VITALS: BP 117/78; PULSE 75; RESP 15; O2SAT 97
--- NOTE | 2023-12-17 23:44 | ED.WOUNDLAC ---
HPI - Wound/Laceration General Chief Complaint: Wound/Laceration Stated Complaint: bleeding at injection site Time Seen by Provider: 12/17/23 22:25 History of Present Illness HPI narrative: 68-year-old male with a history of CVA, Alzheimer's dementia, hypertension who is currently A&O x1 presents via EMS from [facility] for injection site bleeding. Patient had a Lovenox injection today in his right lower abdomen and had bleeding afterwards. Upon my evaluation, the patient has no complaints. He denies chest pain or shortness of breath, abdominal pain, nausea vomiting diarrhea, fever. He is unsure why he is here. Related Data Home Medications Medication Instructions Recorded Confirmed acetaminophen 325 mg tablet 650 mg PO Q4-5H PRN Pain 05/30/23 12/14/23 citalopram 20 mg tablet (Celexa) 20 mg PO DAILY 05/30/23 12/14/23 clopidogrel 75 mg tablet 75 mg PO DAILY 05/30/23 12/14/23 enoxaparin 40 mg/0.4 mL 40 mg subcut DAILY 05/30/23 12/14/23 subcutaneous syringe ergocalciferol (vitamin D2) 1,250 1,250 mcg PO WEEKLY 05/30/23 12/14/23 mcg (50,000 unit) capsule (Drisdol) metoprolol succinate 25 mg 25 mg PO DAILY 05/30/23 12/14/23 tablet,extended release 24 hr rosuvastatin 40 mg tablet 40 mg PO DAILY 05/30/23 12/14/23 Allergies Allergy/AdvReac Type Severity Reaction Status Date / Time banana Allergy Hives Verified 12/14/23 01:49 Review of Systems Review of Systems: CONSTITUTIONAL: Denies fever, chills, or sweats. EYES: Denies visual changes, redness, or discharge. ENT: Denies rhinorrhea, congestion, sore throat, or otalgia. CARDIOVASCULAR: Denies chest pain, palpitations, or edema. RESPIRATORY: Denies cough or dyspnea. GASTROINTESTINAL: Denies abdominal pain, nausea, vomiting, or diarrhea. GENITOURINARY: Denies dysuria or hematuria. SKIN: See HPI MUSCULOSKELETAL: Denies back pain, joint pain, or myalgia. NEUROLOGIC: Denies headache, numbness, or weakness. PSYCHIATRIC: Denies anxiety or depression. [facility] Past Medical History Medical History Alzheimer's dementia Anxiety and depression CVA (cerebral vascular accident) L middle cerebral artery Gait instability HLD (hyperlipidemia) HTN (hypertension) Muscle weakness Rheumatoid arthritis Vitamin D deficiency Surgical History Surgical History Surgical history unknown Family History Family History Other Family history unknown Social History Social History Social History: Resides at [facility]. Currently DNR. Smoking status: Never smoker Alcohol intake: never Substance use: former Substance use type: marijuana Last use: 2019 Spiritual care concerns: No Exam Narrative: GENERAL: Well-appearing, well-nourished, and in no acute distress. HEAD: Normocephalic, atraumatic. EYES: PERRLA and EOMI. ENT: Nares clear, no rhinorrhea or epistaxis. Mucous membranes moist. NECK: Supple. CHEST: Clear to auscultation. No respiratory distress. HEART: Regular rate and rhythm. No murmur heard. Normal peripheral pulses. ABDOMEN: Soft, nontender, nondistended, normal active bowel sounds. EXTREMITIES: Normal range of motion. No edema. SKIN: Injection site in the right lower quadrant with surrounding dried blood. No active bleeding. Band-Aid in place. No hematoma or ecchymosis, no tenderness. NEURO: No focal deficits. Alert and oriented x1. Moving all extremities Course Vital Signs Vital signs: Vital Signs Pulse Rate 88 12/17/23 20:51 Respiratory Rate 16 12/17/23 20:51 Blood Pressure 114/79 12/17/23 20:51 Pulse Oximetry 98 12/17/23 20:51 Temperature 98.4 F 12/17/23 23:46 Pulse Rate 75 12/17/23 23:12 Respiratory Rate 15 12/17/23 23:12 Blood Pressure
[2023-12-17 23:46] VITALS: TEMP 36.9
== END 2023-12-18 00:46 ==
PROVIDERS: Emergency Provider Physician Assistant; PCP Hospitalist
DX: G30.9 Alzheimer's disease, unspecified (principal); F02.80 Dementia in other diseases classified elsewhere, unspecified severity, without behavioral disturbance, psychotic disturbance, mood disturbance, and anxiety; I10 Essential (primary) hypertension; E78.5 Hyperlipidemia, unspecified; E55.9 Vitamin D deficiency, unspecified; M06.9 Rheumatoid arthritis, unspecified; Z66 Do not resuscitate; Z86.73 Personal history of transient ischemic attack (TIA), and cerebral infarction without residual deficits; Z79.01 Long term (current) use of anticoagulants
CPT/HCPCS: 99282

== ENCOUNTER 2024-02-04 07:17 | Emergency (ER) | payer MEDICARE, SELFPAY ==
--- NOTE | ~2024-02-04 | CT_ITS ---
EXAMINATION: CT brain wo con DATE: 02/04/2024 07:44 INDICATION: Head injury. TECHNIQUE: Computed tomography (CT) of the head was performed without intravenous contrast. The mA wa s adjusted according to patient size. Iterative reconstruction technique was employed. The dose-lengt h product was 605.33 mGy-cm. COMPARISON: Head CT 11/20/23 FINDINGS: There is an old infarct involving the left frontotemporal parietal region, left insula, lef t internal capsule, and left basal ganglia in the expected distribution of left middle cerebral arter y. There is no intracranial hemorrhage, acute infarction, or abnormal intracranial mass lesion. The v entricles are normal in size. The orbits are normal. There is mild mucosal thickening in the paranasa l sinuses. There are small bilateral mastoid effusions. There is cerumen in left external auditory ca nal. IMPRESSION: 1. Large old infarct in the expected distribution of left middle cerebral artery. Reviewed, dictated and finalized at location E. IMPRESSION: 1. Large old infarct in the expected distribution of left middle cerebral arter y.
--- NOTE | ~2024-02-04 | CT_ITS ---
EXAMINATION: CT cervical spine wo con DATE: 02/04/2024 07:44 INDICATION: Head injury. TECHNIQUE: Computed tomography (CT) of the cervical spine was performed without intravenous contrast. Automated exposure control and iterative reconstruction technique were employed. The dose-length pro duct was 443.58 mGy-cm. COMPARISON: CT cervical spine 11/20/23 FINDINGS: There is mild scarring at the lung apices. There is 11 degrees levoscoliosis of cervicothor acic spine. There is kyphosis of cervical spine. Vertebral body heights are normal. There is moderate ly decreased disc height at C3-C4 and severely decreased disc height at C5-C6 and C6-C7. The followin g disc levels are specifically discussed: C2-C3: There is mild lateral uncovertebral joint osteoarthritis. There is severe right and moderate l eft facet joint osteoarthritis. There is mild right neural foraminal stenosis. There is no central ca nal stenosis. C3-C4: There is severe bilateral uncovertebral joint osteoarthritis. There is severe bilateral facet joint osteoarthritis. There is mild bilateral neural foraminal stenosis. There is mild central canal stenosis. C4-C5: There is moderate bilateral uncovertebral joint osteoarthritis. There is severe right and mild left facet joint osteoarthritis. There is mild bilateral neural foraminal stenosis. There is mild ce ntral canal stenosis. C5-C6: There is severe bilateral uncovertebral joint osteoarthritis. There is moderate right and mild left facet joint osteoarthritis. There is mild bilateral neural foraminal stenosis. There is mild ce ntral canal stenosis. C6-C7: There is severe bilateral uncovertebral joint osteoarthritis. There is moderate bilateral face t joint osteoarthritis. There is mild bilateral neural foraminal stenosis. There is mild central lore l stenosis. C7-T1: There is no uncovertebral joint osteoarthritis. There is severe bilateral facet joint osteoart hritis. There is mild bilateral neural foraminal stenosis. There is no central canal stenosis. IMPRESSION: 1. No fracture. 2. Severe cervical spondylosis. 3. Cervicothoracic levoscoliosis. Reviewed, dictated and finalized at location E.
--- NOTE | ~2024-02-04 | XR_ITS ---
EXAMINATION: XR hip RT 2V w AP pelvis DATE: 02/04/2024 07:56 INDICATION: Right hip pain. Fall. TECHNIQUE: An anteroposterior view of the pelvis and 2 views of right hip were obtained. COMPARISON: Pelvis and right hip radiographs 11/20/2023 FINDINGS: Bone alignment is normal. No fracture. There is mild osteoarthritis of the hips. Stool dist ends the rectum. IMPRESSION: 1. Mild osteoarthritis of the hips. 2. Stool distends the rectum. Reviewed, dictated and finalized at location E.
--- NOTE | ~2024-02-04 | CT_ITS ---
EXAMINATION: CT lumbar spine wo con DATE: 02/04/2024 08:30 INDICATION: Fall. TECHNIQUE: Computed tomography (CT) of the lumbar spine was performed without intravenous contrast. A utomated exposure control and iterative reconstruction technique were employed. The dose-length produ ct was 700.92 mGy-cm. COMPARISON: None FINDINGS: Stool distends the rectum. There is 3 degrees dextrocurvature of lumbar spine. There is mil d chronic anterior wedging of T12 vertebral body. There is moderately decreased disc height at L2-L3 and severely decreased disc height at L5-S1. The following disc levels are specifically discussed: L1-L2: The disc is bulging. There is mild bilateral facet joint osteoarthritis. There is mild bilater al neural foraminal stenosis. There is mild central canal stenosis. L2-L3: The disc is bulging. There is mild bilateral facet joint osteoarthritis. There is mild bilater al neural foraminal stenosis. There is mild central canal stenosis. L3-L4: The disc is bulging. There is mild right and moderate left facet joint osteoarthritis. There i s mild bilateral neural foraminal stenosis. There is mild central canal stenosis. L4-L5: The disc is bulging. There is moderate bilateral facet joint osteoarthritis. There is mild nano ateral neural foraminal stenosis. There is mild central canal stenosis. L5-S1: The disc is bulging. There is severe bilateral facet joint osteoarthritis. There is mild right and moderate left neural foraminal stenosis. There is mild central canal stenosis. IMPRESSION: 1. No fracture. 2. Severe lumbar spondylosis. 3. Stool distends the rectum. Reviewed, dictated and finalized at location E.
[2024-02-04 07:19] VITALS: BP 133/90; PULSE 86; RESP 12; TEMP 36.4; O2SAT 99
[2024-02-04] MEDS: ACETAMINOPHEN 500 MG TABLET 1000 MG PO (08:47)
[2024-02-04] MEDS: LIDOCAINE 5% PATCH 1 PATCH TRANSDERM (08:47)
--- NOTE | 2024-02-04 09:01 | ED.FALL ---
HPI - Fall General Chief Complaint: Fall Stated Complaint: FALL History of Present Illness HPI Narrative: This is a 68-year-old male, with history of stroke on a enoxaparin, brought in by EMS from his shelter after a fall from bed. The patient states he rolled out of bed accidentally and landed on his right hip. He denies head injury or loss of consciousness. He primarily complains of right hip soreness, rated 4 to 5/10 he also complains of some low back pain. He has no other complaints at this time. Related Data Home Medications Medication Instructions Recorded Confirmed acetaminophen 325 mg tablet 650 mg PO Q4-5H PRN Pain 05/30/23 12/14/23 citalopram 20 mg tablet (Celexa) 20 mg PO DAILY 05/30/23 12/14/23 clopidogrel 75 mg tablet 75 mg PO DAILY 05/30/23 12/14/23 enoxaparin 40 mg/0.4 mL 40 mg subcut DAILY 05/30/23 12/14/23 subcutaneous syringe ergocalciferol (vitamin D2) 1,250 1,250 mcg PO WEEKLY 05/30/23 12/14/23 mcg (50,000 unit) capsule (Drisdol) metoprolol succinate 25 mg 25 mg PO DAILY 05/30/23 12/14/23 tablet,extended release 24 hr rosuvastatin 40 mg tablet 40 mg PO DAILY 05/30/23 12/14/23 Allergies Allergy/AdvReac Type Severity Reaction Status Date / Time banana Allergy Hives Verified 02/04/24 07:39 Review of Systems Review of Systems: CONSTITUTIONAL: Denies fever, chills, or sweats. EYES: Denies visual changes, redness, or discharge. ENT: Denies rhinorrhea, congestion, sore throat, or otalgia. CARDIOVASCULAR: Denies chest pain, palpitations, or edema. RESPIRATORY: Denies cough or dyspnea. GASTROINTESTINAL: Denies abdominal pain, nausea, vomiting, or diarrhea. GENITOURINARY: Denies dysuria or hematuria. SKIN: Denies rash or itching. MUSCULOSKELETAL: Right hip pain and low back pain. Denies or myalgia. NEUROLOGIC: Denies headache, numbness, dizziness, or weakness. PSYCHIATRIC: Denies anxiety or depression. [facility] Past Medical History Medical History Alzheimer's dementia Anxiety and depression CVA (cerebral vascular accident) L middle cerebral artery Gait instability HLD (hyperlipidemia) HTN (hypertension) Muscle weakness Rheumatoid arthritis Vitamin D deficiency Surgical History Surgical History Surgical history unknown Family History Family History Other Family history unknown Social History Social History Social History: Resides at [facility]. Currently DNR. Smoking status: Never smoker Alcohol intake: never Substance use: former Substance use type: marijuana Last use: 2019 Spiritual care concerns: No Exam Narrative: GENERAL: Well-developed, thin, and in no acute distress. HEAD: Normocephalic, atraumatic. EYES: PERRLA and EOMI. ENT: Nares clear, no rhinorrhea or epistaxis. Mucous membranes moist. Oropharynx without tonsillar hypertrophy exudate or other lesions. NECK: Supple. No midline spine tenderness to palpation, no step-off or crepitus CHEST: Clear to auscultation. No respiratory distress. No wheezes rales or rhonchi HEART: Regular rate and rhythm. No murmur heard. Normal peripheral pulses. ABDOMEN: Soft, nontender, nondistended, normal active bowel sounds. BACK: Tender to palpation over the L1 midline vertebral without step-off or crepitus. Mild paraspinal tenderness to palpation in the lumbar spine. EXTREMITIES: Mild erythema noted over the right greater trochanter with some tenderness, though no step-off, crepitus or deformity. Normal range of motion. No edema. SKIN: Warm, dry, no rash. NEURO: Alert and oriented x3. No focal deficit. Moving all 4 limbs spontaneously PSYCH: Normal mood and affect. Course Course Emergency Course: 09:15 - CT of the head not concerning for fracture or intrac
[2024-02-04 09:02] VITALS: BP 117/74; PULSE 78; RESP 13; O2SAT 97
== END 2024-02-04 10:07 ==
PROVIDERS: Emergency Provider Preventive Medicine Aerospace Medicine; PCP Hospitalist
DX: S70.01XA Contusion of right hip, initial encounter (principal); M54.50 Low back pain, unspecified; G30.9 Alzheimer's disease, unspecified; F02.80 Dementia in other diseases classified elsewhere, unspecified severity, without behavioral disturbance, psychotic disturbance, mood disturbance, and anxiety; F41.9 Anxiety disorder, unspecified; F32.A Depression, unspecified; I10 Essential (primary) hypertension; M06.9 Rheumatoid arthritis, unspecified; W06.XXXA Fall from bed, initial encounter
CPT/HCPCS: 70450; 72125; 72131; 73502; 99284; A9270

== ENCOUNTER 2024-03-23 02:37 | Emergency (ER) | payer MEDICARE, SELFPAY ==
--- NOTE | ~2024-03-23 | CT_ITS ---
Non-contrast Head CT History: Found down COMPARISON: 02/04/2024 Technique: Axial non-contrast imaging of the brain was performed. Dose reduction technique was used on this scan by utilizing automated exposure control and iterative reconstruction technique. The dose -length product (DLP) was 281.38 mGy-cm. Findings: There is no evidence of intracranial hemorrhage, mass lesion, or acute infarct. Extensive chronic left MCA distribution infarct again noted. The ventricles and subarachnoid spaces are normal in size. The calvarium appears normal. The visualized paranasal sinuses and mastoid air cells are clear. Impression: No acute abnormality seen. Chronic extensive left MCA distribution infarct, unchanged. Reviewed, dictated and finalized at location . Impression: No acute abnormality seen. Chronic extensive left MCA distribution infarct, unchanged.
--- NOTE | ~2024-03-23 | CT_ITS ---
Noncontrast CT scan of the cervical spine Technique: Multiple contiguous axial [address] images of the cervical spine were obtained and rec onstructed in 2D sagittal and coronal planes on the acquisition scanner. Dose reduction technique was used on this scan by utilizing automated exposure control, adjustment of the mA and/or kV according to patient size. The dose-length product (DLP) was 281.38 mGy-cm. Clinical History: Pain Findings: No fractures or dislocations. There is straightening of the normal cervical lordosis. Ther e is moderate to advanced degenerative disc narrowing at C5-C6 and C6-C7. There is probable mild righ t neural foraminal narrowing at C2-C3, with right-sided facet arthropathy present. There is left neur al foraminal narrowing at C3-C4, prominent left facet arthropathy present. There is probable mild rig ht neural foraminal narrowing at C4-C5, prominent right facet arthropathy. There is disc osteophyte c omplex at C5-C6, mild canal stenosis and bilateral neural foraminal narrowing. No prevertebral soft t issue swelling. Impression: No fracture or subluxation of the cervical spine. Degenerative spondylosis, as above. Reviewed, dictated and finalized at location . Impression: No fracture or subluxation of the cervical spine. Degenerative spondylosis, as above.
[2024-03-23 02:35] VITALS: BP 113/77; PULSE 56; RESP 13; TEMP 36.8; O2SAT 98
[2024-03-23 02:40] VITALS: PULSE 58; RESP 16; O2SAT 100
--- NOTE | 2024-03-23 02:50 | ED.FALL ---
HPI - Fall General Chief Complaint: Fall Stated Complaint: UNWITTNESSED FALL OUT OF BED Time Seen by Provider: 03/23/24 02:38 History of Present Illness HPI Narrative: Patient coming from residential as unwitnessed fall, he was found on the floor next to his bed. He is on blood thinners. He denies any complaints. Related Data Home Medications Medication Instructions Recorded Confirmed acetaminophen 325 mg tablet 650 mg PO Q4-5H PRN Pain 05/30/23 12/14/23 citalopram 20 mg tablet (Celexa) 20 mg PO DAILY 05/30/23 12/14/23 clopidogrel 75 mg tablet 75 mg PO DAILY 05/30/23 12/14/23 enoxaparin 40 mg/0.4 mL 40 mg subcut DAILY 05/30/23 12/14/23 subcutaneous syringe ergocalciferol (vitamin D2) 1,250 1,250 mcg PO WEEKLY 05/30/23 12/14/23 mcg (50,000 unit) capsule (Drisdol) metoprolol succinate 25 mg 25 mg PO DAILY 05/30/23 12/14/23 tablet,extended release 24 hr rosuvastatin 40 mg tablet 40 mg PO DAILY 05/30/23 12/14/23 Allergies Allergy/AdvReac Type Severity Reaction Status Date / Time banana Allergy Hives Verified 02/04/24 07:39 Review of Systems Review of Systems: All systems reviewed & are unremarkable except as noted in HPI and below PMFSH Past Medical History Medical History Alzheimer's dementia Anxiety and depression CVA (cerebral vascular accident) L middle cerebral artery Gait instability HLD (hyperlipidemia) HTN (hypertension) Muscle weakness Rheumatoid arthritis Vitamin D deficiency Surgical History Surgical History Surgical history unknown Family History Family History Other Family history unknown Social History Social History Social History: Resides at [facility]. Currently DNR. Smoking status: Never smoker Alcohol intake: never Substance use: former Substance use type: marijuana Last use: 2019 Spiritual care concerns: No Exam Narrative: EXAMINATION OF ORGAN SYSTEMS/BODY AREAS: Constitutional: Vital signs per nursing GENERAL:[No acute distress, non-toxic appearing.] HEAD: Normal with no signs of head trauma. EYES: EOMI, conjunctiva normal ENT: Hearing grossly intact LUNGS: Nonlabored breathing. HEART: [Regular rate and rhythm] ABD: [Soft], [nontender to palpation] EXT: Right arm contracted, weak. No obvious deformities SKIN: [No rashes or lesions.] NEURO: [Right-sided weakness.] PSYCH: Normal affect Course Vital Signs Vital signs: Vital Signs Temperature 98.3 F 03/23/24 02:35 Pulse Rate 56 L 03/23/24 02:35 Respiratory Rate 13 03/23/24 02:35 Blood Pressure 113/77 03/23/24 02:35 Pulse Oximetry 98 03/23/24 02:35 Oxygen Delivery Room Air 03/23/24 02:35 Temperature 98.3 F 03/23/24 02:35 Pulse Rate 56 L 03/23/24 02:35 Respiratory Rate 13 03/23/24 02:35 Blood Pressure 113/77 03/23/24 02:35 Pulse Oximetry 98 03/23/24 02:35 Oxygen Delivery Room Air 03/23/24 02:35 MDM - Fall MDM Narrative Medical decision making narrative: Patient presents here after unwitnessed fall, he was found on the ground, he is denying complaints, no signs of trauma. Imaging obtained as he is on blood thinners. CT head and C-spine unremarkable and he stable for discharge back to his residential. Discharge Plan Discharge Clinical Impression: Fall Patient Disposition: Home, Self-Care Condition: Stable Instructions: Antibiotic Form, Fall Prevention for Older Adults (ED) Additional Instructions: Please follow up with your doctor; you can always return for any further issues. Prescriptions: No Action acetaminophen 325 mg Tablet 650 mg PO Q4-5H PRN (Reason: Pain) clopidogrel 75 mg Tablet 75 mg PO DAILY citalopram [Celexa] 20 mg Tablet 20 mg
[2024-03-23 03:45] VITALS: BP 138/62; PULSE 55; RESP 15; O2SAT 99
[2024-03-23 05:15] VITALS: BP 132/87; PULSE 53; RESP 11; O2SAT 99
--- NOTE | 2024-03-23 05:36 | PC.NURSE ---
this rn attempted x3 to call report to [facility]
[2024-03-23 06:01] VITALS: BP 108/71; PULSE 68; RESP 16; O2SAT 99
[2024-03-23 06:15] VITALS: BP 103/70; PULSE 63; RESP 16; O2SAT 97
== END 2024-03-23 06:25 ==
PROVIDERS: Emergency Provider Emergency Medicine; PCP Hospitalist
DX: Z04.3 Encounter for examination and observation following other accident (principal); G30.9 Alzheimer's disease, unspecified; F02.80 Dementia in other diseases classified elsewhere, unspecified severity, without behavioral disturbance, psychotic disturbance, mood disturbance, and anxiety; I10 Essential (primary) hypertension; E78.5 Hyperlipidemia, unspecified; E55.9 Vitamin D deficiency, unspecified; M06.9 Rheumatoid arthritis, unspecified; Z66 Do not resuscitate; Z86.73 Personal history of transient ischemic attack (TIA), and cerebral infarction without residual deficits; Z79.899 Other long term (current) drug therapy; W06.XXXA Fall from bed, initial encounter
CPT/HCPCS: 70450; 72125; 99284

== ENCOUNTER 2024-04-16 07:49 | Emergency (ER) | payer MEDICARE, SELFPAY ==
[2024-04-16] VITALS (10 sets, daily range): BP systolic 109–117; BP diastolic 71–76; PULSE 59–65; RESP 16; TEMP 36.8; O2SAT 92–100
--- NOTE | ~2024-04-16 | CT_ITS ---
EXAMINATION: CT brain wo con DATE: 04/16/2024 08:10 INDICATION: Head injury. TECHNIQUE: Computed tomography (CT) of the head was performed without intravenous contrast. The mA wa s adjusted according to patient size. Iterative reconstruction technique was employed. The dose-lengt h product was 681.00 mGy-cm. COMPARISON: Head CT 03/23/2024 FINDINGS: There is chronic encephalomalacia involving the left frontotemporal parietal region, left i nsula, and left basal ganglia. There is no intracranial hemorrhage, acute infarction, or abnormal int racranial mass lesion. There is ex vacuo dilatation of left lateral ventricle. There is mild mucosal thickening in the ethmoid sinuses. The orbits are normal. There are small bilateral mastoid effusions . IMPRESSION: 1. Large old infarct in the expected distribution of left middle cerebral artery. Reviewed, dictated and finalized at location E. IMPRESSION: 1. Large old infarct in the expected distribution of left middle cerebral arter y.
--- NOTE | ~2024-04-16 | CT_ITS ---
EXAMINATION: CT cervical spine wo con DATE: 04/16/2024 08:10 INDICATION: Head injury. TECHNIQUE: Computed tomography (CT) of the cervical spine was performed without intravenous contrast. Automated exposure control and iterative reconstruction technique were employed. The dose-length pro duct was 384.76 mGy-cm. COMPARISON: CT cervical spine 03/23/24 FINDINGS: There is 9 degrees levocurvature of cervical spine. Vertebral body heights are normal. Ther e is moderately decreased disc height at C3-C4, mildly decreased disc height at C4-C5, and severely d ecreased disc height at C5-C6 and C6-C7. The following disc levels are specifically discussed: C2-C3: There is no uncovertebral joint osteoarthritis. There is severe right and moderate left facet joint osteoarthritis. There is mild right neural foraminal stenosis. There is no central canal stenos is. C3-C4: There is severe bilateral uncovertebral joint osteoarthritis. There is severe bilateral facet joint osteoarthritis. There is mild bilateral neural foraminal stenosis. There is mild central canal stenosis. C4-C5: There is severe right and mild left uncovertebral joint osteoarthritis. There is severe right and moderate left facet joint osteoarthritis. There is mild bilateral neural foraminal stenosis. Ther e is mild central canal stenosis. C5-C6: There is severe bilateral uncovertebral joint osteoarthritis. There is mild bilateral facet anum int osteoarthritis. There is mild bilateral neural foraminal stenosis. There is mild central canal st enosis. C6-C7: There is severe bilateral uncovertebral joint osteoarthritis. There is moderate bilateral face t joint osteoarthritis. There is mild bilateral neural foraminal stenosis. There is mild central lore l stenosis. C7-T1: There is no uncovertebral joint osteoarthritis. There is severe bilateral facet joint osteoart hritis. There is mild right neural foraminal stenosis. There is no central canal stenosis. IMPRESSION: 1. No fracture. 2. Severe cervical spondylosis. Reviewed, dictated and finalized at location E.
--- NOTE | ~2024-04-16 | XR_ITS ---
EXAMINATION: XR elbow LT min 3V DATE: 04/16/2024 08:14 INDICATION: Left elbow injury. TECHNIQUE: 4 views of left elbow were obtained. COMPARISON: None. FINDINGS: Bone alignment is normal. No fracture. Joint spaces are normal. No elbow joint effusion. Th ere is soft tissue swelling overlying the olecranon. IMPRESSION: 1. No fracture. Reviewed, dictated and finalized at location E. IMPRESSION: 1. No fracture.
--- NOTE | 2024-04-16 08:22 | ED.GENADULT ---
HPI - General Adult General Chief complaint: Fall Stated complaint: rolled out of low bed Time Seen by Provider: 04/16/24 08:17 History of Present Illness HPI narrative: patient is a 60-year-old gentleman who presents emergency department with chief complaint of rolled out of bed. Patient is from a [facility] and rolled out of a bed that is low to the ground the patient is on anticoagulants and was sent in for evaluation. The patient currently has no complaints other than some mild discomfort in his left elbow patient does have a baseline dementia and is normally alert oriented x2 Related Data Home Medications Medication Instructions Recorded Confirmed acetaminophen 325 mg tablet 650 mg PO Q4-5H PRN Pain 05/30/23 12/14/23 citalopram 20 mg tablet (Celexa) 20 mg PO DAILY 05/30/23 12/14/23 clopidogrel 75 mg tablet 75 mg PO DAILY 05/30/23 12/14/23 enoxaparin 40 mg/0.4 mL 40 mg subcut DAILY 05/30/23 12/14/23 subcutaneous syringe ergocalciferol (vitamin D2) 1,250 1,250 mcg PO WEEKLY 05/30/23 12/14/23 mcg (50,000 unit) capsule (Drisdol) metoprolol succinate 25 mg 25 mg PO DAILY 05/30/23 12/14/23 tablet,extended release 24 hr rosuvastatin 40 mg tablet 40 mg PO DAILY 05/30/23 12/14/23 Allergies Allergy/AdvReac Type Severity Reaction Status Date / Time banana Allergy Hives Verified 02/04/24 07:39 Review of Systems Review of Systems: A 10 system review of systems was completed on the patient and is negative except for what is stated in the HPI. Nursing and ancillary documentation was reviewed. [facility] Past Medical History Medical History Alzheimer's dementia Anxiety and depression CVA (cerebral vascular accident) L middle cerebral artery Gait instability HLD (hyperlipidemia) HTN (hypertension) Muscle weakness Rheumatoid arthritis Vitamin D deficiency Surgical History Surgical History Surgical history unknown Family History Family History Other Family history unknown Social History Social History Social History: Resides at [facility]. Currently DNR. Smoking status: Never smoker Alcohol intake: never Substance use: former Substance use type: marijuana Last use: 2019 Spiritual care concerns: No Exam Narrative: GENERAL: Well-appearing, well-nourished, and in no acute distress. HEAD: Normocephalic, atraumatic. EYES: PERRLA and EOMI. ENT: Nares clear, no rhinorrhea or epistaxis. Mucous membranes moist. NECK: Supple. CHEST: Clear to auscultation. No respiratory distress. HEART: Regular rate and rhythm. No murmur heard. Normal peripheral pulses. ABDOMEN: Soft, nontender, nondistended, normal active bowel sounds. EXTREMITIES: Normal range of motion. No edema. SKIN: Warm, dry, no rash. NEURO: No focal deficits. Alert and oriented x2. PSYCH: Normal mood and affect. Course Vital Signs Vital signs: Vital Signs Temperature 36.8 C 04/16/24 07:51 Pulse Rate 65 04/16/24 07:51 Respiratory Rate 16 04/16/24 07:51 Blood Pressure 117/71 04/16/24 07:51 Pulse Oximetry 92 04/16/24 07:51 Oxygen Delivery Room Air 04/16/24 07:51 Temperature 36.8 C 04/16/24 07:51 Pulse Rate 59 L 04/16/24 08:01 Respiratory Rate 16 04/16/24 08:01 Blood Pressure 114/76 04/16/24 08:01 Pulse Oximetry 97 04/16/24 08:01 Oxygen Delivery Room Air 04/16/24 07:51 Medical Decision Making [facility] Narrative Medical decision making narrative: differential diagnosis includes intracranial hemorrhage, cervical spine fracture, elbow fracture plain film x-rays the left elbow showed no evidence of fracture CT scan of the head showed no evidence of intracranial hemorrhage CT C
== END 2024-04-16 10:50 ==
LOC: ANHED 08:26
PROVIDERS: Emergency Provider Emergency Medicine; PCP Hospitalist
DX: S50.02XA Contusion of left elbow, initial encounter (principal); G30.9 Alzheimer's disease, unspecified; F02.80 Dementia in other diseases classified elsewhere, unspecified severity, without behavioral disturbance, psychotic disturbance, mood disturbance, and anxiety; I10 Essential (primary) hypertension; E78.5 Hyperlipidemia, unspecified; E55.9 Vitamin D deficiency, unspecified; M06.9 Rheumatoid arthritis, unspecified; R26.89 Other abnormalities of gait and mobility; F32.A Depression, unspecified; F41.9 Anxiety disorder, unspecified; Z66 Do not resuscitate; Z79.899 Other long term (current) drug therapy; Z79.01 Long term (current) use of anticoagulants; Z79.82 Long term (current) use of aspirin; W06.XXXA Fall from bed, initial encounter
CPT/HCPCS: 70450; 72125; 73080; 99284

== ENCOUNTER 2024-04-23 17:47 | Emergency (ER) | payer MEDICARE, SELFPAY ==
--- NOTE | ~2024-04-23 | CT_ITS ---
EXAMINATION: CT brain wo con DATE: 04/23/2024 19:44 INDICATION: Fall. Altered mental status. TECHNIQUE: Computed tomography (CT) of the head was performed without intravenous contrast. The mA wa s adjusted according to patient size. Iterative reconstruction technique was employed. The dose-lengt h product was 605.33 mGy-cm. COMPARISON: Head CT 04/16/2024 FINDINGS: There is an old infarct involving left frontal, temporal, and parietal lobes, left insula, and the left basal ganglia. There is no intracranial hemorrhage, acute infarction, or abnormal intrac ranial mass lesion. There is ex vacuo dilatation of left lateral ventricle. The orbits are normal. Th ere is mild mucosal thickening in the ethmoid sinuses. There are small bilateral mastoid effusions. IMPRESSION: 1. Large old infarct in the expected distribution of left middle cerebral artery. Reviewed, dictated and finalized at location E. IMPRESSION: 1. Large old infarct in the expected distribution of left middle cerebral arter y.
--- NOTE | ~2024-04-23 | XR_ITS ---
EXAMINATION: XR hip LT 2V w AP pelvis DATE: 04/23/2024 19:49 INDICATION: Left hip injury. TECHNIQUE: An anteroposterior view of the pelvis and 2 views of left hip were obtained. COMPARISON: Pelvis radiograph 02/04/2024 FINDINGS: Bone alignment is normal. No fracture. There is mild osteoarthritis of the hips. There is m ild lumbar spondylosis. Stool distends the rectum. IMPRESSION: 1. Mild osteoarthritis of the hips. Reviewed, dictated and finalized at location E.
[2024-04-23 17:48] VITALS: BP 101/65; PULSE 56; RESP 18; TEMP 36.6; O2SAT 98
[2024-04-23 18:33] VITALS: PULSE 60; RESP 16; O2SAT 99
--- NOTE | 2024-04-23 19:26 | ED.FALL ---
HPI - Fall General Chief Complaint: Fall Stated Complaint: fall Time Seen by Provider: 04/23/24 18:53 History of Present Illness HPI Narrative: 60-year-old male presents to the emergency department for evaluation after having a ground level fall. Patient states he slipped from bed. Patient states he did hit his head on the floor. Patient denies any other pain or injury. Patient had initially been complaining of left hip pain. Related Data Home Medications Medication Instructions Recorded Confirmed acetaminophen 325 mg tablet 650 mg PO Q4-5H PRN Pain 05/30/23 12/14/23 citalopram 20 mg tablet (Celexa) 20 mg PO DAILY 05/30/23 12/14/23 clopidogrel 75 mg tablet 75 mg PO DAILY 05/30/23 12/14/23 enoxaparin 40 mg/0.4 mL 40 mg subcut DAILY 05/30/23 12/14/23 subcutaneous syringe ergocalciferol (vitamin D2) 1,250 1,250 mcg PO WEEKLY 05/30/23 12/14/23 mcg (50,000 unit) capsule (Drisdol) metoprolol succinate 25 mg 25 mg PO DAILY 05/30/23 12/14/23 tablet,extended release 24 hr rosuvastatin 40 mg tablet 40 mg PO DAILY 05/30/23 12/14/23 Allergies Allergy/AdvReac Type Severity Reaction Status Date / Time banana Allergy Hives Verified 02/04/24 07:39 Review of Systems Review of Systems: All systems reviewed & are unremarkable except as noted in HPI and below PMFSH Past Medical History Medical History Alzheimer's dementia Anxiety and depression CVA (cerebral vascular accident) L middle cerebral artery Gait instability HLD (hyperlipidemia) HTN (hypertension) Muscle weakness Rheumatoid arthritis Vitamin D deficiency Surgical History Surgical History Surgical history unknown Family History Family History Other Family history unknown Social History Social History Social History: Resides at [facility]. Currently DNR. Smoking status: Never smoker Alcohol intake: never Substance use: former Substance use type: marijuana Last use: 2019 Spiritual care concerns: No Exam Narrative: APPEARANCE: Well appearing, no pain, no distress, well-nourished. HEAD: normocephalic, atraumatic. EYES: PERRLA/EOMI, conjunctivae clear. NOSE: Normal no drainage EARS:TMS clear with good light reflex. THROAT: Pharynx clear, no exudate. NECK: Supple. No adenopathy, no masses. RESPIRATORY: Airway patent, respirations nonlabored. Clear to auscultation bilaterally, no rales, rhonchi, wheezing. CARDIOVASCULAR: Regular rate and rhythm without murmurs rubs or gallops. ABDOMINAL: Soft, nontender, nondistended, normal bowel sounds MUSCULOSKELETAL: Moves all extremities. Strength/ROM intact, No edema, No calf tenderness. NEURO: Alert. Cranial nerves II through XII intact. Grossly intact SKIN: Warm, dry. Normal Color Course Course Emergency Course: head CT and hip x-ray were negative for acute findings. Patient was discharged back to his care facility. Vital Signs Vital signs: Vital Signs Temperature 97.9 F 04/23/24 17:48 Pulse Rate 56 L 04/23/24 17:48 Respiratory Rate 18 04/23/24 17:48 Blood Pressure 101/65 04/23/24 17:48 Pulse Oximetry 98 04/23/24 17:48 Oxygen Delivery Room Air 04/23/24 17:48 Temperature 97.9 F 04/23/24 17:48 Pulse Rate 59 L 04/23/24 19:31 Respiratory Rate 19 04/23/24 19:31 Blood Pressure 102/68 04/23/24 19:31 Pulse Oximetry 97 04/23/24 19:31 Oxygen Delivery Room Air 04/23/24 17:48 MDM - Fall MDM Narrative Medical decision making narrative: 68-year-old male presents emergency department for evaluation after having a fall from bed. Examination patient denies any pain or complaints. Patient had negative imaging. Patient was discharged back to his care facility with no co
[2024-04-23 19:29] VITALS: PULSE 61; RESP 19; O2SAT 97
[2024-04-23 19:30] VITALS: PULSE 59; RESP 18; O2SAT 97
[2024-04-23 19:31] VITALS: BP 102/68; PULSE 59; RESP 19; O2SAT 97
--- NOTE | 2024-04-23 20:19 | PC.NURSE ---
Attempted report to [facility] x3 times. Report will be given to EMS for transport. [facility] can call back with any questions.
== END 2024-04-23 20:40 ==
PROVIDERS: Emergency Provider Emergency Medicine; PCP Hospitalist
DX: S09.90XA Unspecified injury of head, initial encounter (principal); S79.912A Unspecified injury of left hip, initial encounter; G30.9 Alzheimer's disease, unspecified; F02.80 Dementia in other diseases classified elsewhere, unspecified severity, without behavioral disturbance, psychotic disturbance, mood disturbance, and anxiety; I10 Essential (primary) hypertension; E78.5 Hyperlipidemia, unspecified; E55.9 Vitamin D deficiency, unspecified; M06.9 Rheumatoid arthritis, unspecified; F41.9 Anxiety disorder, unspecified; F32.A Depression, unspecified; Z66 Do not resuscitate; Z86.73 Personal history of transient ischemic attack (TIA), and cerebral infarction without residual deficits; Z79.899 Other long term (current) drug therapy; M16.0 Bilateral primary osteoarthritis of hip; Z79.02 Long term (current) use of antithrombotics/antiplatelets; W06.XXXA Fall from bed, initial encounter
CPT/HCPCS: 70450; 73502; 99284

== ENCOUNTER 2024-10-06 09:47 | Inpatient (IN) | payer MEDICARE, SELFPAY ==
[2024-10-06] VITALS (12 sets, daily range): BP systolic 108–158; BP diastolic 60–105; PULSE 77–136; RESP 12–20; TEMP 36.6–37.5; O2SAT 98–99
--- NOTE | ~2024-10-06 | CT_ITS ---
EXAMINATION: CT abdomen pelvis w con DATE: 10/06/2024 11:27 INDICATION: Painless hematuria. TECHNIQUE: Computed tomography (CT) of the abdomen and pelvis was performed with 100 mL Omnipaque 350 intravenous contrast. Automated exposure control and iterative reconstruction technique were employe d. The dose-length product was 505.95 mGy-cm. COMPARISON: CT abdomen pelvis 12/14/2023 FINDINGS: The visualized portions of lung bases demonstrate mild atelectasis. No pleural effusion. Th e heart size is normal. No pericardial effusion. The liver, gallbladder, spleen, pancreas, adrenal gl ands, and right kidney are normal. There is a delayed left-sided contrast nephrogram. There is a 2 mm stone in left kidney. There is mild left hydronephrosis and hydroureter. The bladder is decompressed by a Parsons catheter. The prostate is moderately enlarged. Stool distends the rectum. The appendix is not visualized. There are no pathologically enlarged lymph nodes. There is no free intraperitoneal f luid. There are changes of injections in anterior abdominal wall. There is an umbilical hernia contai derick fat. There is a severe lumbar spondylosis. IMPRESSION: 1. Mild left hydronephrosis and hydroureter. 2. 2 mm nonobstructing left kidney stone. Reviewed, dictated and finalized at location A. BUFFER
[2024-10-06] MEDS: NACL 0.9% IRRIGATION POUR BOTTLE 500 ML (10:22)
--- NOTE | 2024-10-06 10:31 | ED_ITS ---
HPI - Male Genitourinary General Chief complaint: Urogenital-Male Stated complaint: blood clots from penis Time Seen by Provider: 10/06/24 09:48 History of Present Illness HPI Narrative: 69-year-old male with a past medical history including cerebrovascular accident, dementia alert oriented x1 is his baseline, hypertension seizure disorder. Patient presents to the emergency room with chief complaint of painless hematuria. He presents via EMS as his caregivers noted that he has had some blood clots in his diaper for the last 2 days. He does not have a chronic indwelling Parsons catheter and presents with some slight blood clots in his briefs. He has no complaints whatsoever and denies any nausea, vomiting, abdominal pain, back pain. He is alert oriented x1 but very pleasant and cooperative. Related Data Home Medications ?Medication ?Instructions ?Recorded ?Confirmed ?Last Taken ?Type acetaminophen 325 mg tablet 650 mg PO Q4H PRN Pain 05/30/23 10/06/24 Unknown History citalopram 20 mg tablet (Celexa) 20 mg PO DAILY 05/30/23 10/06/24 Unknown History clopidogrel 75 mg tablet 75 mg PO DAILY 05/30/23 10/06/24 Unknown History enoxaparin 40 mg/0.4 mL 40 mg subcut DAILY 05/30/23 10/06/24 Unknown History subcutaneous syringe ergocalciferol (vitamin D2) 1,250 1,250 mcg PO WEEKLY 05/30/23 10/06/24 Unknown History mcg (50,000 unit) capsule (Drisdol) metoprolol succinate 25 mg 25 mg PO DAILY 05/30/23 10/06/24 Unknown History tablet,extended release 24 hr rosuvastatin 40 mg tablet 40 mg PO DAILY 05/30/23 10/06/24 Unknown History trazodone 50 mg tablet 50 mg PO HS 10/06/24 10/06/24 Unknown History Allergies Allergy/AdvReac Type Severity Reaction Status Date / Time banana Allergy Hives Verified 10/06/24 12:36 Review of Systems 2 Review of Systems: ROS unobtainable: Yes unobtainable due to mental status PMFSH Past Medical History Medical History Muscle weakness Gait instability Alzheimer's dementia Vitamin D deficiency HLD (hyperlipidemia) HTN (hypertension) Rheumatoid arthritis Anxiety and depression CVA (cerebral vascular accident) L middle cerebral artery Surgical History Surgical History Surgical history unknown Family History Family History Other Family history unknown Social History Social History Social History: Resides at [facility]. Currently DNR. Smoking status: Never smoker Alcohol intake: never Substance use: never Substance use type: marijuana Last use: 2020 Do You Feel Safe in your Home?: Yes Lack of Transportation: No Lack of Food: Never True Current Housing: I Have Housing Concerned About Future Housing: No Difficulty Paying Gas/Electric Bills: No Difficulty Paying for Meds: No Currently Unemployed: No Education: Don't Know Difficulty w/ Childcare or Family Care: No Spiritual care concerns: No Exam 2 Narrative: GENERAL: [Well-appearing, well-nourished, and in no acute distress.] HEAD: [Normocephalic, atraumatic.] EYES: [PERRLA and EOMI.] ENT: Nares clear, no rhinorrhea or epistaxis. Mucous membranes moist. NECK: Supple. CHEST: [Clear to auscultation. No respiratory distress.] HEART: [Regular rate and rhythm]. No murmur heard. [Normal peripheral pulses.] ABDOMEN: [Soft, nondistended], [nontender], [No rigidity or guarding] EXTREMITIES: Normal range of motion. [No edema.] SKIN: Warm, dry, no rash. NEURO: [No focal deficits]. Alert and oriented x1 PSYCH: [Normal mood and affect.] Course Vital Signs Vital signs: Vital Signs Temperature 36.6 C 10/06/24 09:45 Pulse Rate 77 10/06/24 09:45 Respiratory Rate 16 10/06/24 09:45 Blood Pressure 124/89 10/06/24 09:45 Pulse Oximetry 98 10/06/24 09:45 Oxygen Delivery Room Air 10/06/24 09:45 Temperature 37.5 C 10/06/24 16:18 Pulse Rate 82 10/06/24 16:18 Respiratory Rate 12 10/06/24 16:18 Blood Pressure 112/60 10/06/24 16:18 Pulse Oximetry 98 10/06/24 16:18 Oxygen Delivery Room Air 10/06/24 09:45 MDM - Male Genitourinary MDM Narrative Medical decision making narrative: 69-year-old male with a past medical history of CVA, dementia who is a alert oriented x1 baseline mentation, hypertension, generalized seizure. Presents today from his half-way facility for hematuria. He does have some blood clots in his briefs. Patient has a soft nontender nondistended abdomen, afebrile without any tachycardia, fever or hypoxia. A Parsons catheter was inserted with multiple blood clots being expelled. A 3 way catheter was substituted at this time for continuous bladder irrigation. Blood work was obtained including CBC, CMP, CT scan with IV contrast obtained to assess for any bladder stones, bladder cancer malignancy or any other process. Patient has painless hematuria with blood clots and will likely require admission to the hospital but pending workup at this time. He was given a fluid bolus and CBI initiated. CBI initiated in requiring continuous flushing as patient does pass large amounts of clots. CT scan shows no clots in the bladder or any other pathology aside from a nonobstructing left kidney stone and mild hydro. No leukocytosis, hemoglobin of 13.1 and stable. Normal coagulation studies. Normal electrolytes, normal renal and hepatic function panel. Normal glucose. Urinalysis with some trace white blood cells and bacteria but mostly red blood cells. Will empirically treat with antibiotics including Rocephin. Given patient's requirement for CBI and urinary infection I did contact Urology Dr. Smith. We went over patient's care plan going forward and he recommended admission to the medicine service for continuous CBI. Admitted the patient to the hospitalist currently being covered by the midlevel provider Amena. We went over patient's care, imaging studies, clinical assessment and patient was accepted to a medical-surgical bed at this time. Medical Records Attestation: I reviewed the patient's medical records. Lab Data Attestation: I reviewed the patient's lab results. 10/06/24 10:39 10/06/24 10:39 Labs: Lab Results 10/06/24 10/06/24 10/06/24 Range/Units 09:55 10:39 12:39 WBC 8.1 (4.5-10.0) K/mm3 RBC 4.34 L (4.6-6.20) M/mm3 Hgb 13.1 L (14.0-18.0) g/dL Hct 39.6 L (42.0-52.0) % MCV 91.2 (80-100) fl MCH 30.2 (26-34) pg MCHC 33.1 (32-36) g/dl RDW 13.1 (11.5-14.5) % Plt Count 219 (150-375) k/mm3 MPV 9.3 (7.4-10.4) fl Immature Gran % (Auto) 0.2 (0-0.5) % Neut % (Auto) 69.3 (45.5-73.1) % Lymph % (Auto) 19.2 (18.3-44.2) % [place] % (Auto) 9.0 H (2.6-8.5) % Eos % (Auto) 2.2 (0-4.4) % Baso % (Auto) 0.1 L (0.2-1.2) % Lymph # (Auto) 1.56 (0.9-3.2) K/mm3 [place] # (Auto) 0.7 H (0.1-0.6) K/mm3 Eos # (Auto) 0.2 (0-0.3) K/mm3 Baso # (Auto) 0.0 (0.0-0.1) K/mm3 Abs Immat Gran (auto) 0.02 (0.00-0.031) K/mm3 Absolute Neuts (auto) 5.6 (1.3-6.7) K/mm3 Absolute Nucleated RBC 0.000 (0.0-0.012) K/mm3 Nucleated RBC % 0.0 (0.0-0.2) % PT 14.5 (11.1-14.7) Seconds INR 1.1 APTT 35.7 (22.3-36.8) Seconds Sodium 135 L (137-145) mmol/L Potassium 3.6 (3.4-5.0) mmol/L Chloride 103 (98-107) mmol/L Carbon Dioxide 29 (22-30) mmol/L Anion Gap 3 L (4-12) mmol/L BUN 22 H (9-20) mg/dL Creatinine 1.20 (0.7-1.3) mg/dL Estim Creat Clear Calc Not Reportable Estimated GFR 60 (59 - ) Glucose 154 H (65-110) mg/dL Calcium 9.1 (8.4-10.2) mg/dL Magnesium 1.9 (1.6-2.3) mg/dL Total Bilirubin 0.5 (0.2-1.3) mg/dL AST 22 (17-59) U/L ALT 18 (6-50) U/L Alkaline Phosphatase 56 (38-126) U/L Total Protein 7.0 (6.3-8.2) g/dL Albumin 3.8 (3.5-5.1) g/dL Urine Color TNP Yellow Urine Appearance TNP Clear Urine pH TNP 6.0 Ur Specific [place] TNP 1.010 Urine Protein TNP 1+ H Urine Glucose (UA) TNP Negative Urine Ketones TNP Negative Ur Blood (Man) TNP 3+ H Urine Nitrate TNP Negative Urine Bilirubin TNP Negative Urine Urobilinogen TNP 0.2 Leukocyte Esterase Rfl TNP Trace H Urine RBC >100 H (0-2) /hpf Urine WBC 11-20 H (0-3) /hpf Ur Squamous Epith Cells None seen (Few) /hpf Urine Bacteria None seen /hpf Urine Casts 0-2 Waxy Casts (None) /lpf Blood Type A Positive Antibody Screen Negative Imaging Data Attestation: I personally reviewed and interpreted this imaging study as follows: My impression: Impressions Abdomen/Pelvis CT 10/06/24 11:28 IMPRESSION: 1. Mild left hydronephrosis and hydroureter. 2. 2 mm nonobstructing left kidney stone. Discharge Plan Discharge Clinical Impression: Clot hematuria, Acute UTI, Painless hematuria Patient Disposition: Still a Patient Condition: Stable Time of Disposition: 13:47
[2024-10-06] MEDS: LACTATED RINGERS 1,000 ML 999 ML IV CONT (10:42)
[2024-10-06 10:45] LABS: Basophils Percent Auto 0.1 % (0.2-1.2); Eosinophils Absolute Auto 0.2 K/mm3 (0-0.3); Eosinophils Percent Auto 2.2 % (0-4.4); Hematocrit 39.6 % (42.0-52.0); Hemoglobin 13.1 g/dL (14.0-18.0); Immature Granulocyte Absolute 0.02 K/mm3 (0.00-0.031); Immature Granulocyte Percent A 0.2 % (0-0.5); Lymphocytes Absolute Auto 1.56 K/mm3 (0.9-3.2); Lymphocytes Percent Auto 19.2 % (18.3-44.2); Mean Corpuscular HGB Conc 33.1 g/dl (32-36); Mean Corpuscular Hemoglobin 30.2 pg (26-34); Mean Corpuscular Volume 91.2 fl (80-100); Mean Platelet Volume 9.3 fl (7.4-10.4); Monocytes Absolute Auto 0.7 K/mm3 (0.1-0.6); Neutrophils Absolute Auto 5.6 K/mm3 (1.3-6.7); Neutrophils Percent Auto 69.3 % (45.5-73.1); Platelet Count Result 219 k/mm3 (150-375); Red Blood Count 4.34 M/mm3 (4.6-6.20); Red Cell Distribution Width 13.1 % (11.5-14.5); White Blood Count 8.1 K/mm3 (4.5-10.0)
[2024-10-06 11:00] LABS: Alanine Aminotransferase 18 U/L (6-50); Albumin Level 3.8 g/dL (3.5-5.1); Alkaline Phosphatase 56 U/L (38-126); Anion Gap 3 mmol/L (4-12); Aspartate Amino Transferase 22 U/L (17-59); Bilirubin,Total 0.5 mg/dL (0.2-1.3); Blood Urea Nitrogen 22 mg/dL (9-20); Calcium 9.1 mg/dL (8.4-10.2); Carbon Dioxide 29 mmol/L (22-30); Chloride 103 mmol/L (98-107); Estimated Glomerular Filt Rate 60; Glucose 154 mg/dL (65-110); Magnesium 1.9 mg/dL (1.6-2.3); Potassium 3.6 mmol/L (3.4-5.0); Sodium 135 mmol/L (137-145)
[2024-10-06 11:05] LABS: INR 1.1; Prothrombin Time 14.5 Seconds (11.1-14.7)
[2024-10-06 11:06] LABS: Partial Thromboplastin Time 35.7 Seconds (22.3-36.8)
[2024-10-06 12:59] LABS: Add Urine Microscopic? YES; Appearance Urine Clear (Clear); Bacteria Urine None Seen /hpf; Bilirubin Urine Negative (Negative); Blood Urine 3+ (Negative); Color Urine Yellow (Yellow); Glucose Urine UA Negative (Negative); Ketones Urine Negative (Negative); Leukocyte Esterase Ur Trace LEU/UL (Negative); Nitrate Urine Negative (Negative); Non Pathogenic Casts 0-2; Protein Urine 1+ mg/dL (Negative); RBC Urine >100 /hpf (0-2); Squamous Epithelial Cell Urine None Seen /hpf (Few); Urobilinogen Urine 0.2 mg/dL (<2.0)
--- NOTE | 2024-10-06 14:17 | PC.NURSE ---
CBI bags replaced at 1415.
--- NOTE | 2024-10-06 14:25 | PM.IMHP ---
H&P: HPI History of Present Illness Date/Time: 10/06/24 14:25 Chief Complaint: Passing blood clots from penis. Narrative: This is a 69-year-old male with history of strokes, dementia, seizures, hypertension, hyperlipidemia, depression, anxiety, and rheumatoid arthritis who presented to the emergency department via EMS from [facility] with reports that the patient has been passing blood clots from his penis. He is alert and oriented x1 at baseline is not the greatest historian and a majority the following history is obtained via a review of his electronic medical records. Staff have noticed intermittent blood and blood clots in his briefs over the last couple of days and he was sent in today for evaluation. The patient himself has no complaints and specifically denies fever, chills, sweats, abdominal pain, back pain, and dysuria. In the ED: He was afebrile on arrival with stable vital signs. Labs were significant for a WBC count of 8.1, hemoglobin 13.1, sodium 135, BUN 22, creatinine 1.20, glucose 154. Urinalysis was positive for 3+ blood, 1+ protein, trace leukocyte esterase, greater than 100 RBC, and [address] of the abdomen pelvis showed mild left hydronephrosis and hydroureter and a 2 mm nonobstructing left kidney stone. He was given 1 L lactated Ringer's, ceftriaxone 1 g, and a 3 way Parsons catheter has been inserted for CBI. He is being admitted in this setting for further treatment. Review of Systems Review of Systems: Unable to obtain given significant dementia. 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 Code status: Do not resuscitate. Smoking status: Never smoker Alcohol intake: never Substance use: never Substance use type: marijuana Last use: 2020 Do You Feel Safe in your Home?: Yes Lack of Transportation: No Lack of Food: Never True Current Housing: I Have Housing Concerned About Future Housing: No Difficulty Paying Gas/Electric Bills: No Difficulty Paying for Meds: No Currently Unemployed: No Education: Don't Know Difficulty w/ Childcare or Family Care: No Additional living arrangements comments: [facility] concerns: No Meds Home Medications and Allergies Home Medications ?Medication ?Instructions ?Recorded ?Confirmed ?Type acetaminophen 325 mg tablet 650 mg PO Q4H PRN Pain 05/30/23 10/06/24 History citalopram 20 mg tablet (Celexa) 20 mg PO DAILY 05/30/23 10/06/24 History clopidogrel 75 mg tablet 75 mg PO DAILY 05/30/23 10/06/24 History enoxaparin 40 mg/0.4 mL 40 mg subcut DAILY 05/30/23 10/06/24 History subcutaneous syringe ergocalciferol (vitamin D2) 1,250 1,250 mcg PO WEEKLY 05/30/23 10/06/24 History mcg (50,000 unit) capsule (Drisdol) metoprolol succinate 25 mg 25 mg PO DAILY 05/30/23 10/06/24 History tablet,extended release 24 hr rosuvastatin 40 mg tablet 40 mg PO DAILY 05/30/23 10/06/24 History aspirin 81 mg tablet,delayed 81 mg PO QAM #30 tabs 11/05/23 10/06/24 Rx release levetiracetam 500 mg tablet 500 mg PO Q12HR #60 tabs 11/05/23 10/06/24 Rx (Keppra) lorazepam 0.5 mg tablet 0.5 mg PO DAILY PRN Anxiety #5 tabs 12/16/23 10/06/24 Rx lidocaine 5 % topical patch 1 patch topical DAILY #30 ea 02/04/24 10/06/24 Rx trazodone 50 mg tablet 50 mg PO HS 10/06/24 10/06/24 History Allergies Allergy/AdvReac Type Severity Reaction Status Date / Time banana Allergy Hives Verified 10/06/24 12:36 Vital Signs Vital Signs - 24 hr 10/06/24 09:45 10/06/24 12:42 12/24/24 13:01 Temperature 97.8 F Pulse Rate 77 77 Respiratory Rate 16 14 Blood Pressure 124/89 127/72 126/73 Pulse Oximetry 98 99 99 Oxygen Delivery Room Air 10/06/24 13:16 10/06/24 13:31 10/06/24 13:46 Temperature Pulse Rate 78 Respiratory Rate 15 Blood Pressure 130/73 127/74 128/67 Pulse Oximetry 98 98 98 Oxygen Delivery 10/06/24 14:16 Temperature Pulse Rate Respiratory Rate Blood Pressure 127/73 Pulse Oximetry 98 Oxygen Delivery Exam Narrative: General: Chronically ill-appearing male sitting up in bed in no distress. Weight: 67.8 kg. BMI: 21.4. HEENT: PERRL, EOMI. Sclera anicteric. Oral mucosa moist. Oropharynx clear. Neck: Supple. Respiratory: Lungs are clear to auscultation bilaterally. Cardiovascular: Regular rate and rhythm with S1-S2. Gastrointestinal: Abdomen is soft, nontender, and nondistended with positive bowel sounds. Genitourinary: Currently on CBI with Parsons catheter draining light red fluid. Skin: Warm and dry. Extremities: No cyanosis, clubbing, or edema. Radial and pedal pulses intact. Neurological: Alert and oriented times once. Cranial nerves 2-12 are grossly intact. Speech is clear. Contracted right upper extremity with spastic right-sided hemiplegia. Psychiatric: Pleasant and cooperative. H&P: Results Labs Labs: Short CBC 10/06/24 Range/Units 10:39 WBC 8.1 (4.5-10.0) K/mm3 Hgb 13.1 L (14.0-18.0) g/dL Hct 39.6 L (42.0-52.0) % Plt Count 219 (150-375) k/mm3 BMP 10/06/24 10:39 Sodium 135 L Potassium 3.6 Chloride 103 Carbon Dioxide 29 BUN 22 H Creatinine 1.20 Glucose 154 H Calcium 9.1 Liver Function 10/06/24 Range/Units 10:39 Total Bilirubin 0.5 (0.2-1.3) mg/dL AST 22 (17-59) U/L ALT 18 (6-50) U/L Alkaline Phosphatase 56 (38-126) U/L Albumin 3.8 (3.5-5.1) g/dL Urine 10/06/24 10/06/24 Range/Units 09:55 12:39 Urine Color TNP Yellow Urine Appearance TNP Clear Urine pH TNP 6.0 Ur Specific [place] TNP 1.010 Urine Protein TNP 1+ H Urine Glucose (UA) TNP Negative Imaging Abdomen/Pelvis CT 10/06/24 11:28 IMPRESSION: 1. Mild left hydronephrosis and hydroureter. 2. 2 mm nonobstructing left kidney stone. Assessment and Plan Assessment and plan (1) Hematuria: Code(s): R31.9 - Hematuria, unspecified Status: Acute (2) Left renal stone: Code(s): N20.0 - Calculus of kidney Status: Acute (3) Hydroureteronephrosis: Code(s): N13.30 - Unspecified hydronephrosis Status: Acute (4) Hypertension: Code(s): I10 - Essential (primary) hypertension Status: Acute (5) Seizure: Code(s): R56.9 - Unspecified convulsions Status: Acute (6) Dementia: Code(s): F03.90 - Unspecified dementia, unspecified severity, without behavioral disturbance, psychotic disturbance, mood disturbance, and anxiety Status: Acute Plan The patient presented to the emergency department for evaluation of passing clots as detailed in HPI. Labs, imaging, EKG, and all reports were personally reviewed. He has been started on CBI and Urology has been consulted. Dual antiplatelet therapy is on hold. Monitor hemoglobin and hematocrit. Hold on further antibiotics pending urine culture. Blood pressures were reviewed and they are stable. His medications will be reviewed and resumed as appropriate. Findings and treatment plan were discussed with the patient. Questions were solicited and answered to satisfaction. The patient's medical management will be taken over by the hospitalist team in a.m. Quality VTE Prophylaxis VTE prophylaxis: mechanical ordered If No VTE Prophylaxis Answer both mechanical and pharmacologic: Reason no pharmacologic proph: medical contraindication (gross hematuria) Hospitalist MIPS Advance Care Plan I have confirmed that the patient's Advanced Care Plan is present, code status is documented, or surrogate decision maker is listed in patient medical record.: Yes Medication Reconciliation I have utilized all available resources to obtain, update and review the patients current medications (includes all prescriptions, OTC, herbals, cannabis, and nutritional supplements).: Yes
--- NOTE | 2024-10-06 14:39 | P.CONUR_ITS ---
Assessment and Plan Assessment and plan (1) Hematuria: Code(s): R31.9 - Hematuria, unspecified Status: Acute (2) Acute UTI: Code(s): N39.0 - Urinary tract infection, site not specified Status: Acute (3) Seizure: Code(s): R56.9 - Unspecified convulsions Status: Acute Assessment and Plan: * Gross hematuria likely resulting from underlying BPH complicated by a hemorrhagic cystitis * Patient to be admitted for continuous bladder irrigation and broad-spectrum antibiotics pending cultures * Will start finasteride to shrink his prostate * Consider stopping aspirin and Plavix or this will likely be an ongoing problem Urology Consult Note HPI Date Seen: 10/06/24 Requesting Physician: Camelia Osei MD Primary Care Provider: Jozef France MD Consult Narrative Narrative: Sidney Mcgill is a 68 year old male with PMHx of CVA on ASA/Plavix, dementia, HTN, HLD for whom urology was consulted for UTI with gross hematuria. Pt presented this morning and had UA suspicious for UTI. He had a 3-way catheter replaced by me with a 22F hematuria in the ER which was irrigated with mild clot return and was started on CBI. Pt has dementia and is unable to provide any meaningful history. he had a nearly identical episode in December 2023 but was never seen in the office following discharge. Review of Systems 2 Review of Systems: ROS unobtainable: Yes unobtainable due to mental status PMFSH Past Medical History Medical History Muscle weakness Gait instability Alzheimer's dementia Vitamin D deficiency HLD (hyperlipidemia) HTN (hypertension) Rheumatoid arthritis Anxiety and depression CVA (cerebral vascular accident) L middle cerebral artery Surgical History Surgical History Surgical history unknown Family History Family History Other Family history unknown Social History Social History Social History: Resides at [facility]. Currently DNR. Smoking status: Never smoker Alcohol intake: never Substance use: former Substance use type: marijuana Last use: 2019 Spiritual care concerns: No Meds Home Medications and Allergies Home Medications ?Medication ?Instructions ?Recorded ?Confirmed ?Type acetaminophen 325 mg tablet 650 mg PO Q4-5H PRN Pain 05/30/23 12/14/23 History citalopram 20 mg tablet (Celexa) 20 mg PO DAILY 05/30/23 12/14/23 History clopidogrel 75 mg tablet 75 mg PO DAILY 05/30/23 12/14/23 History enoxaparin 40 mg/0.4 mL 40 mg subcut DAILY 05/30/23 12/14/23 History subcutaneous syringe ergocalciferol (vitamin D2) 1,250 1,250 mcg PO WEEKLY 05/30/23 12/14/23 History mcg (50,000 unit) capsule (Drisdol) metoprolol succinate 25 mg 25 mg PO DAILY 05/30/23 12/14/23 History tablet,extended release 24 hr rosuvastatin 40 mg tablet 40 mg PO DAILY 05/30/23 12/14/23 History aspirin 81 mg tablet,delayed 81 mg PO QAM #30 tabs 11/05/23 12/14/23 Rx release levetiracetam 500 mg tablet 500 mg PO Q12HR #60 tabs 11/05/23 12/14/23 Rx (Keppra) cefdinir 300 mg capsule 300 mg PO Q12H #8 caps 12/16/23 Rx lorazepam 0.5 mg tablet 0.5 mg PO DAILY PRN Anxiety #5 tabs 12/16/23 Rx polyethylene glycol 3350 17 gram 17 g PO QAM #30 ea 12/16/23 Rx oral powder packet (Miralax) lidocaine 5 % topical patch 1 patch topical DAILY #30 ea 02/04/24 Rx Allergies Allergy/AdvReac Type Severity Reaction Status Date / Time banana Allergy Hives Verified 10/06/24 12:36 Vital Signs Vital Signs - 24 hr 10/06/24 09:45 10/06/24 12:42 10/06/24 13:01 Temperature 97.8 F Pulse Rate 77 77 Respiratory Rate 16 14 Blood Pressure 124/89 127/72 126/73 Pulse Oximetry 98 99 99 Oxygen Delivery Room Air 10/06/24 13:16 10/06/24 13:31 10/06/24 13:46 Temperature Pulse Rate 78 Respiratory Rate 15 Blood Pressure 130/73 127/74 128/67 Pulse Oximetry 98 98 98 Oxygen Delivery 10/06/24 14:16 Temperature Pulse Rate Respiratory Rate Blood Pressure 127/73 Pulse Oximetry 98 Oxygen Delivery Exam 2 Const: General: no acute distress Resp: Effort & Inspection: normal respiratory effort GI: Inspection: non-distended GI Palp: No abdominal tenderness and No Guarding due to palpation present (GI) Auscultation: normal bowel sounds Urinary Catheter: Urinary Catheter: urine with clots Results Labs 10/06/24 10:39 10/06/24 10:39 Labs: Short CBC 10/06/24 Range/Units 10:39 WBC 8.1 (4.5-10.0) K/mm3 Hgb 13.1 L (14.0-18.0) g/dL Hct 39.6 L (42.0-52.0) % Plt Count 219 (150-375) k/mm3 BMP 10/06/24 10:39 Sodium 135 L Potassium 3.6 Chloride 103 Carbon Dioxide 29 BUN 22 H Creatinine 1.20 Glucose 154 H Calcium 9.1 Liver Function 10/06/24 Range/Units 10:39 Total Bilirubin 0.5 (0.2-1.3) mg/dL AST 22 (17-59) U/L ALT 18 (6-50) U/L Alkaline Phosphatase 56 (38-126) U/L Albumin 3.8 (3.5-5.1) g/dL Urine 10/06/24 10/06/24 Range/Units 09:55 12:39 Urine Color TNP Yellow Urine Appearance TNP Clear Urine pH TNP 6.0 Ur Specific [place] TNP 1.010 Urine Protein TNP 1+ H Urine Glucose (UA) TNP Negative
--- NOTE | 2024-10-06 16:12 | ADMGEN ---
This patient, Sidney Mcgill, was admitted to Medical Room 259-01. Patient/family oriented to hospital policies and general routines including ID bracelet, bed and alarms, visiting hours, pain management, procedures, bathroom and other care routines, personal items, smoking policy, room service/diet, and visiting hours. Information on how to activate the Rapid Response Team has been discussed. Patient/Family are encouraged to report perceived risks to care and to ask questions if they do not understand what they are told or what they should do.
--- NOTE | 2024-10-06 21:20 | ECG_ITS ---
Test Date: 2024-10-06 21:49:31 Measurements Intervals [place] Rate: 130 P: 148 FL: 156 QRS: -27 QRSD: 88 T: 149 QT: 298 QTc: 439 Interpretive Statements ECTOPIC ATRIAL TACHYCARDIA LOW QRS VOLTAGE IN EXTREMITY LEADS [QRS DEFLECTION < 0.5 mV IN LIMB LEADS] INFERIOR MYOCARDIAL INFARCTION , PROBABLY OLD [40+ ms Q WAVE AND/OR ST/T ABNORMALITY IN II/aVF] No previous ECG available for comparison Electronically Signed On 10-07-2024 13:46:19 RIB TRIM SEPARATOR by Miriam Flores M.D.
[2024-10-06] MEDS: levETIRAcetam 500 MG TABLET PO (22:43)
[2024-10-06] MEDS: traZODone HCL 50 MG TABLET PO (22:43)
[2024-10-07] VITALS (10 sets, daily range): BP systolic 94–135; BP diastolic 55–75; PULSE 63–92; RESP 14–16; TEMP 36.6–37.2; O2SAT 96–99
[2024-10-07] MEDS: ACETAMINOPHEN 325 MG TABLET 650 MG PO ×3 (00:10→18:15)
[2024-10-07 05:43] LABS: Hematocrit 36.9 % (42.0-52.0); Mean Corpuscular HGB Conc 32.5 g/dl (32-36); Mean Corpuscular Hemoglobin 30.2 pg (26-34); Mean Corpuscular Volume 92.7 fl (80-100); Mean Platelet Volume 9.2 fl (7.4-10.4); Platelet Count Result 203 k/mm3 (150-375); Red Blood Count 3.98 M/mm3 (4.6-6.20); Red Cell Distribution Width 13.2 % (11.5-14.5); White Blood Count 8.6 K/mm3 (4.5-10.0)
[2024-10-07 05:58] LABS: Anion Gap 2 mmol/L (4-12); Blood Urea Nitrogen 24 mg/dL (9-20); Calcium 8.9 mg/dL (8.4-10.2); Carbon Dioxide 27 mmol/L (22-30); Chloride 106 mmol/L (98-107); Estimated CRCL calculation 59 ml/min; Estimated Glomerular Filt Rate > 60; Glucose 114 mg/dL (65-110); Magnesium 1.9 mg/dL (1.6-2.3); Potassium 4.5 mmol/L (3.4-5.0); Sodium 135 mmol/L (137-145)
--- NOTE | 2024-10-07 07:38 | P.PNIM_ITS ---
Progress Note: A&P Assessment and Plan (1) Hematuria: Code(s): R31.9 - Hematuria, unspecified Status: Acute Assessment and Plan: * Three way catheter in place with CBI--draining clear straw urine * Urology following * Patient chronically on aspirin and Plavix--may need to consider stopping--currently on hold * Hemoglobin 12.0 * Patient started on finasteride by Urology for potential BPH (2) Left renal stone: Code(s): N20.0 - Calculus of kidney Status: Acute Assessment and Plan: * CT of the abdomen and pelvis showed mild left hydronephrosis and hydroureter, 2 mm nonobstructing left kidney stone * Urology following (3) Hydroureteronephrosis: Code(s): N13.30 - Unspecified hydronephrosis Status: Acute Assessment and Plan: See above (4) Seizure: Code(s): R56.9 - Unspecified convulsions Status: Acute Assessment and Plan: * Continue Keppra Time Spent With Patient Time with patient: 25 - 35 minutes Subjective Date/time seen: 10/07/24 07:38 Interval history: Interval history: This is a 69-year-old male who presented to the hospital on 10/06/2024 with hematuria. Workup in the hospital included abdomen/pelvis CT which showed mild left hydronephrosis and hydroureter, 2 mm nonobstructing left kidney stone. Initial labs showed a normal white blood cell count of 8.1, hemoglobin 13.1, sodium 135. UA was obtained and showed 1+ urine protein, 3+ urine blood, trace leukocytes, greater than 100 urine RBC, 11-20 urine WBC. Urine culture was obtained and is pending. Previous culture from 12/14/2023 was reviewed and shown Proteus mirabilis which was resistant to Cipro and Macrobid otherwise pansensitive. EKG showed atrial tachycardia with a rate of 130, QTC 439. Patient was given IV fluids and meropenem while in the ED. urology consulted. Subjective: Patient is alert oriented x1, labs and imaging reviewed. CBI in place. Review of Systems Review of Systems: Unable to obtain given significant dementia. Exam Narrative: General: In no acute distress Head: atraumatic, no encephalopathy Eyes: PERRLA, sclera clear ENT: moist mucous membranes, nasal passages clear Neck: supple, no JVD, no adenopathy, trachea midline Cardiac: Normal S1 and S2. No murmur, gallops or friction rubs, peripheral pulses intact. Respiratory: Lungs clear to auscultation, no adventitious lung sounds, currently on room air Gastrointestinal: soft, non-distended, non-tender, normoactive bowel sounds. : CBI martinez in place, draining clear straw urine Extremities: moves all extremities well, no edema Skin: clean, dry, intact. No wounds or lesions. Neuro: Alert and oriented x1, cranial nerves intact, no neuro deficits. Objective Data Vital Signs Vital Signs: Vital Signs - 24 hr 10/06/24 09:45 10/06/24 12:42 10/06/24 13:01 Temperature 97.8 F Pulse Rate 77 77 Respiratory Rate 16 14 Blood Pressure 124/89 127/72 126/73 Pulse Oximetry 98 99 99 Oxygen Delivery Room Air 10/06/24 13:16 10/06/24 13:31 10/06/24 13:46 Temperature Pulse Rate 78 Respiratory Rate 15 Blood Pressure 130/73 127/74 128/67 Pulse Oximetry 98 98 98 Oxygen Delivery 10/06/24 14:16 10/06/24 14:31 10/06/24 14:46 Temperature Pulse Rate Respiratory Rate Blood Pressure 127/73 129/69 117/62 Pulse Oximetry 98 98 98 Oxygen Delivery 10/06/24 15:01 10/06/24 16:18 10/06/24 16:50 Temperature 99.5 F Pulse Rate 95 82 Respiratory Rate 14 12 Blood Pressure 108/64 112/60 Pulse Oximetry 98 98 Oxygen Delivery Room Air 10/06/24 19:58 10/06/24 21:22 10/07/24 00:00 Temperature 99 F Pulse Rate 136 H 91 Respiratory Rate 20 Blood Pressure 158/105 H Pulse Oximetry 98 Oxygen Delivery Room Air 10/07/24 00:08 10/07/24 00:10 10/07/24 01:10 Temperature 98.3 F 99.0 F 98.1 F Pulse Rate 92 Respiratory Rate 16 Blood Pressure 94/55 L Pulse Oximetry 96 Oxygen Delivery 10/07/24 04:00 10/07/24 04:00 10/07/24 07:27 Temperature 98.9 F Pulse Rate 63 74 Respiratory Rate 16 Blood Pressure 108/58 L Pulse Oximetry 97 98 Oxygen Delivery Room Air Intake/Output Intake/Output: Intake & Output 10/04/24 10/05/24 10/06/24 10/07/24 23:59 23:59 23:59 23:59 Intake Total 1050 100 Output Total 1800 6372 Balance -318 -8497 Meds/Results Medications: Active Medications Generic Name Dose Route Start Last Admin Trade Name Freq PRN Reason Stop Dose Admin Acetaminophen 650 mg 10/06/24 23:46 10/07/24 00:10 Acetaminophen 325 Mg Tablet PO 650 mg Q6H PRN Administration Pain or Fever Citalopram Hydrobromide 20 mg 10/07/24 09:00 Citalopram Hydrobromide 20 Mg Tablet PO DAILY ISIDRO Levetiracetam 500 mg 10/06/24 21:00 10/06/24 22:43 Levetiracetam 500 Mg Tablet PO 500 mg Q12HR ISIDRO Administration Lidocaine 1 patch 10/07/24 09:00 Lidocaine 5% Patch TOPICAL DAILY ISIDRO Lorazepam 0.5 mg 10/06/24 20:44 Lorazepam (*Crx) 0.5 Mg Tablet PO DAILY PRN Anxiety Metoprolol Succinate 25 mg 10/07/24 09:00 Metoprolol Succinate Ext Rel 25 Mg Tabcr PO DAILY ISIDRO Rosuvastatin Calcium 40 mg 10/07/24 09:00 Rosuvastatin 20 Mg Tablet PO DAILY ISIDRO Trazodone HCl 50 mg 10/06/24 21:00 10/06/24 22:43 Trazodone Hcl 50 Mg Tablet PO 50 mg HS ISIDRO Administration Radiology Results: ITS Impressions Abdomen/Pelvis CT 10/06/24 11:28 IMPRESSION: 1. Mild left hydronephrosis and hydroureter. 2. 2 mm nonobstructing left kidney stone. Labs Labs: Laboratory Results - last 24 hr 10/06/24 10/06/24 10/06/24 09:55 10:39 12:39 WBC 8.1 RBC 4.34 L Hgb 13.1 L Hct 39.6 L MCV 91.2 MCH 30.2 MCHC 33.1 RDW 13.1 Plt Count 219 MPV 9.3 Immature Gran % (Auto) 0.2 Neut % (Auto) 69.3 Lymph % (Auto) 19.2 [place] % (Auto) 9.0 H Eos % (Auto) 2.2 Baso % (Auto) 0.1 L Lymph # (Auto) 1.56 [place] # (Auto) 0.7 H Eos # (Auto) 0.2 Baso # (Auto) 0.0 Abs Immat Gran (auto) 0.02 Absolute Neuts (auto) 5.6 Absolute Nucleated RBC 0.000 Nucleated RBC % 0.0 PT 14.5 INR 1.1 APTT 35.7 Sodium 135 L Potassium 3.6 Chloride 103 Carbon Dioxide 29 Anion Gap 3 L BUN 22 H Creatinine 1.20 Estim Creat Clear Calc Not Reportable Estimated GFR 60 Glucose 154 H Calcium 9.1 Magnesium 1.9 Total Bilirubin 0.5 AST 22 ALT 18 Alkaline Phosphatase 56 Total Protein 7.0 Albumin 3.8 Urine Color TNP Yellow Urine Appearance TNP Clear Urine pH TNP 6.0 Ur Specific [place] TNP 1.010 Urine Protein TNP 1+ H Urine Glucose (UA) TNP Negative Urine Ketones TNP Negative Ur Blood (Man) TNP 3+ H Urine Nitrate TNP Negative Urine Bilirubin TNP Negative Urine Urobilinogen TNP 0.2 Leukocyte Esterase Rfl TNP Trace H Urine RBC >100 H Urine WBC 11-20 H Ur Squamous Epith Cells None seen Urine Bacteria None seen Urine Casts 0-2 Waxy Casts Blood Type A Positive Antibody Screen Negative 10/07/24 05:35 WBC 8.6 RBC 3.98 L Hgb 12.0 L Hct 36.9 L MCV 92.7 MCH 30.2 MCHC 32.5 RDW 13.2 Plt Count 203 MPV 9.2 Immature Gran % (Auto) Neut % (Auto) Lymph % (Auto) [place] % (Auto) Eos % (Auto) Baso % (Auto) Lymph # (Auto) [place] # (Auto) Eos # (Auto) Baso # (Auto) Abs Immat Gran (auto) Absolute Neuts (auto) Absolute Nucleated RBC Nucleated RBC % PT INR APTT Sodium 135 L Potassium 4.5 Chloride 106 Carbon Dioxide 27 Anion Gap 2 L BUN 24 H Creatinine 1.00 Estim Creat Clear Calc 59 Estimated GFR > 60 Glucose 114 H Calcium 8.9 Magnesium 1.9 Total Bilirubin AST ALT Alkaline Phosphatase Total Protein Albumin Urine Color Urine Appearance Urine pH Ur Specific [place] Urine Protein Urine Glucose (UA) Urine Ketones Ur Blood (Man) Urine Nitrate Urine Bilirubin Urine Urobilinogen Leukocyte Esterase Rfl Urine RBC Urine WBC Ur Squamous Epith Cells Urine Bacteria Urine Casts Waxy Casts Blood Type Antibody Screen Quality VTE Prophylaxis VTE prophylaxis: mechanical ordered
[2024-10-07] MEDS: levETIRAcetam 500 MG TABLET PO ×2 (07:58→20:05)
[2024-10-07] MEDS: CITALOPRAM HYDROBROMIDE 20 MG TABLET PO (07:58)
[2024-10-07] MEDS: ROSUVASTATIN 20 MG TABLET 40 MG PO (07:58)
[2024-10-07] MEDS: METOPROLOL SUCCINATE EXT REL 25 MG TABCR PO (07:58)
--- NOTE | 2024-10-07 08:13 | WPDANESPN ---
Anes - Prog Note Post-Op Date/Time: 10/07/24 08:13 Cardiovascular status: normal Respiratory status: normal Airway patency: baseline Mental status: baseline Post-Op hydration status: normal Vital Signs: Last Vital Signs Temp 37.2 C 10/07/24 04:00 Pulse 74 10/07/24 04:00 Resp 16 10/07/24 04:00 BP 108/58 L 10/07/24 04:00 Pulse Ox 98 10/07/24 07:27 O2 Del Method Room Air 10/07/24 07:27 Pain Score (VAS): No nonverbal signs of pain present at this time. I/O: Intake & Output 10/06/24 10/07/24 10/07/24 23:59 07:59 15:59 Intake Total 100 Output Total 1800 9780 Balance -1800 -7756 Laboratory Tests 10/07/24 05:35 10/07/24 05:35 10/06/24 10/06/24 10/06/24 09:55 10:39 12:39 WBC 8.1 RBC 4.34 L Hgb 13.1 L Hct 39.6 L MCV 91.2 MCH 30.2 MCHC 33.1 RDW 13.1 Plt Count 219 MPV 9.3 Immature Gran % (Auto) 0.2 Neut % (Auto) 69.3 Lymph % (Auto) 19.2 [place] % (Auto) 9.0 H Eos % (Auto) 2.2 Baso % (Auto) 0.1 L Lymph # (Auto) 1.56 [place] # (Auto) 0.7 H Eos # (Auto) 0.2 Baso # (Auto) 0.0 Abs Immat Gran (auto) 0.02 Absolute Neuts (auto) 5.6 Absolute Nucleated RBC 0.000 Nucleated RBC % 0.0 PT 14.5 INR 1.1 APTT 35.7 Sodium 135 L Potassium 3.6 Chloride 103 Carbon Dioxide 29 Anion Gap 3 L BUN 22 H Creatinine 1.20 Estim Creat Clear Calc Not Reportable Estimated GFR 60 Glucose 154 H Calcium 9.1 Magnesium 1.9 Total Bilirubin 0.5 AST 22 ALT 18 Alkaline Phosphatase 56 Total Protein 7.0 Albumin 3.8 Urine Color TNP Yellow Urine Appearance TNP Clear Urine pH TNP 6.0 Ur Specific [place] TNP 1.010 Urine Protein TNP 1+ H Urine Glucose (UA) TNP Negative Urine Ketones TNP Negative Ur Blood (Man) TNP 3+ H Urine Nitrate TNP Negative Urine Bilirubin TNP Negative Urine Urobilinogen TNP 0.2 Leukocyte Esterase Rfl TNP Trace H Urine RBC >100 H Urine WBC 11-20 H Ur Squamous Epith Cells None seen Urine Bacteria None seen Urine Casts 0-2 Waxy Casts Blood Type A Positive Antibody Screen Negative 10/07/24 05:35 WBC 8.6 RBC 3.98 L Hgb 12.0 L Hct 36.9 L MCV 92.7 MCH 30.2 MCHC 32.5 RDW 13.2 Plt Count 203 MPV 9.2 Immature Gran % (Auto) Neut % (Auto) Lymph % (Auto) [place] % (Auto) Eos % (Auto) Baso % (Auto) Lymph # (Auto) [place] # (Auto) Eos # (Auto) Baso # (Auto) Abs Immat Gran (auto) Absolute Neuts (auto) Absolute Nucleated RBC Nucleated RBC % PT INR APTT Sodium 135 L Potassium 4.5 Chloride 106 Carbon Dioxide 27 Anion Gap 2 L BUN 24 H Creatinine 1.00 Estim Creat Clear Calc 59 Estimated GFR > 60 Glucose 114 H Calcium 8.9 Magnesium 1.9 Total Bilirubin AST ALT Alkaline Phosphatase Total Protein Albumin Urine Color Urine Appearance Urine pH Ur Specific [place] Urine Protein Urine Glucose (UA) Urine Ketones Ur Blood (Man) Urine Nitrate Urine Bilirubin Urine Urobilinogen Leukocyte Esterase Rfl Urine RBC Urine WBC Ur Squamous Epith Cells Urine Bacteria Urine Casts Waxy Casts Blood Type Antibody Screen Post-procedural complaints: none Patient Feedback: Patient asleep.
[2024-10-07] MEDS: MEROPENEM 1 GM/NS 100 ML 1 GM/100 ML BAG IVPB ×2 (11:30→20:05)
[2024-10-07] MEDS: traZODone HCL 50 MG TABLET PO (20:05)
[2024-10-08] VITALS (7 sets, daily range): BP systolic 96–125; BP diastolic 56–72; PULSE 65–94; RESP 16–18; TEMP 36.2–36.9; O2SAT 96–100
[2024-10-08] MEDS: MEROPENEM 1 GM/NS 100 ML 1 GM/100 ML BAG IVPB ×3 (05:08→21:21)
--- NOTE | 2024-10-08 06:54 | P.PNUR_ITS ---
Progress Note: A&P Assessment and Plan (1) Painless hematuria: Code(s): R31.9 - Hematuria, unspecified Status: Acute (2) Clot hematuria: Code(s): R31.0 - Gross hematuria Status: Acute Assessment and Plan: * Hematuria likely d/t BPH +/- UTI * Urine now clear -> will stop CBI and plan voiding trial tomorrow if urine remains clear * Should continue finasteride long-term to diminish risk of recurrent bleeding in the future Subjective Subjective Date/Time Seen: 10/08/24 06:54 Interval history: Comfortable, no complaitns Review of Systems Review of Systems: ROS unobtainable: Yes unobtainable due to mental status Exam Const: General: no acute distress Resp: Effort & Inspection: normal respiratory effort GI: Inspection: non-distended GI Palp: No abdominal tenderness and No Guarding due to palpation present (GI) Auscultation: normal bowel sounds Urinary Catheter: Urinary Catheter: patent and draining and urine clear Objective Data Vital Signs Vital Signs: Vital Signs - 24 hr 10/07/24 07:27 10/07/24 08:00 10/07/24 08:00 Temperature 98.4 F Pulse Rate 73 Respiratory Rate 14 Blood Pressure 100/61 Pulse Oximetry 98 99 Oxygen Delivery Room Air Room Air 10/07/24 08:00 10/07/24 12:00 10/07/24 16:00 Temperature 97.9 F Pulse Rate 76 80 75 Respiratory Rate 16 14 Blood Pressure 131/75 135/72 Pulse Oximetry 98 98 Oxygen Delivery 10/07/24 20:00 10/07/24 20:00 10/08/24 00:00 Temperature 97.9 F 97.5 F L Pulse Rate 64 82 Respiratory Rate 16 16 Blood Pressure 96/55 L 96/56 L Pulse Oximetry 98 100 Oxygen Delivery Room Air 10/08/24 04:00 Temperature 97.2 F L Pulse Rate 68 Respiratory Rate 18 Blood Pressure 97/60 L Pulse Oximetry 99 Oxygen Delivery Intake/Output Intake/Output: Intake & Output 10/05/24 10/06/24 10/07/24 10/08/24 23:59 23:59 23:59 23:59 Intake Total 1050 1660 Output Total 1783 5380 6193 [id number] -259 -0671 -0970 Meds/Results Medications: Active Medications Generic Name Dose Route Start Last Admin Trade Name Freq PRN Reason Stop Dose Admin Acetaminophen 650 mg 10/06/24 23:46 10/07/24 18:15 Acetaminophen 325 Mg Tablet PO 650 mg Q6H PRN Administration Pain or Fever Citalopram Hydrobromide 20 mg 10/07/24 09:00 10/07/24 07:58 Citalopram Hydrobromide 20 Mg Tablet PO 20 mg DAILY ISIDRO Administration Meropenem 1 gm in 100 mls @ 200 mls/hr 10/07/24 21:00 10/08/24 05:08 IVPB 200 mls/hr Q8HR ISIDRO Administration Levetiracetam 500 mg 10/06/24 21:00 10/07/24 20:05 Levetiracetam 500 Mg Tablet PO 500 mg Q12HR ISIDRO Administration Lidocaine 1 patch 10/07/24 09:00 10/07/24 07:58 Lidocaine 5% Patch TOPICAL Not Given DAILY ISIDRO Lorazepam 0.5 mg 10/06/24 20:44 Lorazepam (*Crx) 0.5 Mg Tablet PO DAILY PRN Anxiety Metoprolol Succinate 25 mg 10/07/24 09:00 10/07/24 07:58 Metoprolol Succinate Ext Rel 25 Mg Tabcr PO 25 mg DAILY ISIDRO Administration Rosuvastatin Calcium 40 mg 10/07/24 09:00 10/07/24 07:58 Rosuvastatin 20 Mg Tablet PO 40 mg DAILY ISIDRO Administration Trazodone HCl 50 mg 10/06/24 21:00 10/07/24 20:05 Trazodone Hcl 50 Mg Tablet PO 50 mg HS ISIDRO Administration Radiology Results: ITS Impressions Abdomen/Pelvis CT 10/06/24 11:28 IMPRESSION: 1. Mild left hydronephrosis and hydroureter. 2. 2 mm nonobstructing left kidney stone.
[2024-10-08 09:22] LABS: Basophils Percent Auto 0.4 % (0.2-1.2); Eosinophils Absolute Auto 0.2 K/mm3 (0-0.3); Eosinophils Percent Auto 3.6 % (0-4.4); Hematocrit 37.8 % (42.0-52.0); Hemoglobin 12.6 g/dL (14.0-18.0); Immature Granulocyte Absolute 0.01 K/mm3 (0.00-0.031); Immature Granulocyte Percent A 0.2 % (0-0.5); Lymphocytes Absolute Auto 0.96 K/mm3 (0.9-3.2); Mean Corpuscular HGB Conc 33.3 g/dl (32-36); Mean Corpuscular Hemoglobin 30.7 pg (26-34); Mean Platelet Volume 9.2 fl (7.4-10.4); Monocytes Absolute Auto 0.6 K/mm3 (0.1-0.6); Neutrophils Absolute Auto 3.5 K/mm3 (1.3-6.7); Neutrophils Percent Auto 65.8 % (45.5-73.1); Platelet Count Result 192 k/mm3 (150-375); Red Blood Count 4.11 M/mm3 (4.6-6.20); Red Cell Distribution Width 13.1 % (11.5-14.5); White Blood Count 5.3 K/mm3 (4.5-10.0)
[2024-10-08 09:31] LABS: Alanine Aminotransferase 21 U/L (6-50); Albumin Level 3.5 g/dL (3.5-5.1); Alkaline Phosphatase 59 U/L (38-126); Anion Gap 2 mmol/L (4-12); Aspartate Amino Transferase 27 U/L (17-59); Bilirubin,Total 0.4 mg/dL (0.2-1.3); Blood Urea Nitrogen 18 mg/dL (9-20); Calcium 8.9 mg/dL (8.4-10.2); Carbon Dioxide 29 mmol/L (22-30); Chloride 105 mmol/L (98-107); Estimated CRCL calculation 76 ml/min; Estimated Glomerular Filt Rate > 60; Glucose 117 mg/dL (65-110); Potassium 3.7 mmol/L (3.4-5.0); Sodium 136 mmol/L (137-145)
[2024-10-08] MEDS: CITALOPRAM HYDROBROMIDE 20 MG TABLET PO (10:05)
[2024-10-08] MEDS: ROSUVASTATIN 20 MG TABLET 40 MG PO (10:05)
[2024-10-08] MEDS: METOPROLOL SUCCINATE EXT REL 25 MG TABCR PO (10:05)
[2024-10-08] MEDS: levETIRAcetam 500 MG TABLET PO ×2 (10:05→21:20)
[2024-10-08] MEDS: LIDOCAINE 5% PATCH 1 PATCH TOPICAL (10:06)
--- NOTE | 2024-10-08 11:27 | P.PNIM_ITS ---
Progress Note: A&P Assessment and Plan (1) Hematuria: Code(s): R31.9 - Hematuria, unspecified Status: Acute Assessment and Plan: * CBI clamped, martinez draining clear yellow urine * Urology following * Patient chronically on aspirin and Plavix--may need to consider stopping--currently on hold * Hemoglobin 12.6 today * Patient started on finasteride by Urology for potential BPH * Likely discharge tomorrow (2) Left renal stone: Code(s): N20.0 - Calculus of kidney Status: Acute Assessment and Plan: * CT of the abdomen and pelvis showed mild left hydronephrosis and hydroureter, 2 mm nonobstructing left kidney stone * Urology following (3) Hydroureteronephrosis: Code(s): N13.30 - Unspecified hydronephrosis Status: Acute Assessment and Plan: See above (4) Seizure: Code(s): R56.9 - Unspecified convulsions Status: Acute Assessment and Plan: * Continue Keppra Time Spent With Patient Time with patient: 15 - 25 minutes Subjective Date/time seen: 10/08/24 11:27 Interval history: Interval history: This is a 69-year-old male who presented to the hospital on 10/06/2024 with hematuria. Workup in the hospital included abdomen/pelvis CT which showed mild left hydronephrosis and hydroureter, 2 mm nonobstructing left kidney stone. Initial labs showed a normal white blood cell count of 8.1, hemoglobin 13.1, sodium 135. UA was obtained and showed 1+ urine protein, 3+ urine blood, trace leukocytes, greater than 100 urine RBC, 11-20 urine WBC. Urine culture was obtained and is pending. Previous culture from 12/14/2023 was reviewed and shown Proteus mirabilis which was resistant to Cipro and Macrobid otherwise pansensitive. EKG showed atrial tachycardia with a rate of 130, QTC 439. Patient was given IV fluids and meropenem while in the ED. urology consulted. Subjective: Patient is alert oriented x1, labs and imaging reviewed. CBI clamped. Review of Systems Review of Systems: Unable to obtain given significant dementia. Exam Narrative: General: In no acute distress Cardiac: Normal S1 and S2. No murmur, gallops or friction rubs, peripheral pulses intact. Respiratory: Lungs clear to auscultation, no adventitious lung sounds, currently on room air Gastrointestinal: soft, non-distended, non-tender, normoactive bowel sounds. : CBI clamped, martinez in place, draining clear straw urine Neuro: Alert and oriented x1, cranial nerves intact, no neuro deficits. Objective Data Vital Signs Vital Signs: Vital Signs - 24 hr 10/07/24 12:00 10/07/24 16:00 10/07/24 20:00 Temperature 97.9 F 97.9 F Pulse Rate 80 75 64 Respiratory Rate 16 14 16 Blood Pressure 131/75 135/72 96/55 L Pulse Oximetry 98 98 98 Oxygen Delivery 10/07/24 20:00 10/08/24 00:00 10/08/24 04:00 Temperature 97.5 F L 97.2 F L Pulse Rate 82 68 Respiratory Rate 16 18 Blood Pressure 96/56 L 97/60 L Pulse Oximetry 100 99 Oxygen Delivery Room Air 10/08/24 10:05 Temperature Pulse Rate 65 Respiratory Rate Blood Pressure Pulse Oximetry Oxygen Delivery Intake/Output Intake/Output: Intake & Output 10/05/24 10/06/24 10/07/24 10/08/24 23:59 23:59 23:59 23:59 Intake Total 1050 1660 240 Output Total 1800 1261 8537 [place] -639 -7856 -458 Meds/Results Medications: Active Medications Generic Name Dose Route Start Last Admin Trade Name Freq PRN Reason Stop Dose Admin Acetaminophen 650 mg 10/06/24 23:46 10/07/24 18:15 Acetaminophen 325 Mg Tablet PO 650 mg Q6H PRN Administration Pain or Fever Citalopram Hydrobromide 20 mg 10/07/24 09:00 10/08/24 10:05 Citalopram Hydrobromide 20 Mg Tablet PO 20 mg DAILY ISIDRO Administration Meropenem 1 gm in 100 mls @ 200 mls/hr 10/07/24 21:00 10/08/24 05:08 IVPB 200 mls/hr Q8HR ISIDRO Administration Levetiracetam 500 mg 10/06/24 21:00 10/08/24 10:05 Levetiracetam 500 Mg Tablet PO 500 mg Q12HR ISIDRO Administration Lidocaine 1 patch 10/07/24 09:00 10/08/24 10:06 Lidocaine 5% Patch TOPICAL 1 patch DAILY ISIDRO Administration Lorazepam 0.5 mg 10/06/24 20:44 Lorazepam (*Crx) 0.5 Mg Tablet PO DAILY PRN Anxiety Metoprolol Succinate 25 mg 10/07/24 09:00 10/08/24 10:05 Metoprolol Succinate Ext Rel 25 Mg Tabcr PO 25 mg DAILY ISIDRO Administration Rosuvastatin Calcium 40 mg 10/07/24 09:00 10/08/24 10:05 Rosuvastatin 20 Mg Tablet PO 40 mg DAILY ISIDRO Administration Trazodone HCl 50 mg 10/06/24 21:00 10/07/24 20:05 Trazodone Hcl 50 Mg Tablet PO 50 mg HS ISIDRO Administration Radiology Results: ITS Impressions Abdomen/Pelvis CT 10/06/24 11:28 IMPRESSION: 1. Mild left hydronephrosis and hydroureter. 2. 2 mm nonobstructing left kidney stone. Labs Labs: Laboratory Results - last 24 hr 10/08/24 09:04 Sodium 136 L Potassium 3.7 Chloride 105 Carbon Dioxide 29 Anion Gap 2 L BUN 18 Creatinine 0.80 Estim Creat Clear Calc 76 Estimated GFR > 60 Glucose 117 H Calcium 8.9 Total Bilirubin 0.4 AST 27 ALT 21 Alkaline Phosphatase 59 Total Protein 7.0 Albumin 3.5 Quality VTE Prophylaxis VTE prophylaxis: mechanical ordered
[2024-10-08] MEDS: traZODone HCL 50 MG TABLET PO (21:21)
[2024-10-09] VITALS (8 sets, daily range): BP systolic 97–114; BP diastolic 51–77; PULSE 61–92; RESP 16–18; TEMP 36.6–36.9; O2SAT 96–100
[2024-10-09] MEDS: MEROPENEM 1 GM/NS 100 ML 1 GM/100 ML BAG IVPB (05:21)
--- NOTE | 2024-10-09 06:52 | P.PNUR_ITS ---
Progress Note: A&P Assessment and Plan (1) Hematuria: Code(s): R31.9 - Hematuria, unspecified Status: Acute Assessment and Plan: * Urine remains clear off CBI -> will D/C catheter for voiding trial today. * Recurrent hematuria likely d/t BPH + anticoagulation. - Pt. should definitely go home on Finasteride 5mg daily to shrink prostate and reduce risk of recurrent hematuria episodes. - Consider stopping ASA and/or Plavix, depending on his risk of thromboembolic events (a risk I don't fully understand). * Discharge OK from my standpoint Subjective Subjective Date/Time Seen: 10/09/24 06:52 Interval history: Alert, comfortable Review of Systems Review of Systems: ROS unobtainable: Yes unobtainable due to mental status Exam Const: General: no acute distress Resp: Effort & Inspection: normal respiratory effort GI: Inspection: non-distended GI Palp: No abdominal tenderness and No Guarding due to palpation present (GI) Auscultation: normal bowel sounds Urinary Catheter: Urinary Catheter: patent and draining and urine clear Objective Data Vital Signs Vital Signs: Vital Signs - 24 hr 10/08/24 08:00 10/08/24 10:05 10/08/24 13:36 Temperature 98.2 F Pulse Rate 65 75 Respiratory Rate 16 Blood Pressure 104/62 Pulse Oximetry 97 Oxygen Delivery Room Air 10/08/24 17:52 10/08/24 20:00 10/08/24 21:20 Temperature 98.5 F 98.1 F Pulse Rate 78 94 94 Respiratory Rate 18 16 16 Blood Pressure 120/70 125/72 Pulse Oximetry 96 98 98 Oxygen Delivery Room Air 10/09/24 00:00 10/09/24 04:00 Temperature 98.2 F 97.8 F Pulse Rate 88 92 Respiratory Rate 18 18 Blood Pressure 100/51 L 114/77 Pulse Oximetry 96 97 Oxygen Delivery Intake/Output Intake/Output: Intake & Output 10/06/24 10/07/24 10/08/24 10/09/24 23:59 23:59 23:59 23:59 Intake Total 1050 1660 1130 150 Output Total 0029 1240 2232 300 Balance -750 -4015 -1095 -150 Meds/Results Medications: Active Medications Generic Name Dose Route Start Last Admin Trade Name Freq PRN Reason Stop Dose Admin Acetaminophen 650 mg 10/06/24 23:46 10/07/24 18:15 Acetaminophen 325 Mg Tablet PO 650 mg Q6H PRN Administration Pain or Fever Citalopram Hydrobromide 20 mg 10/07/24 09:00 10/08/24 10:05 Citalopram Hydrobromide 20 Mg Tablet PO 20 mg DAILY ISIDRO Administration Meropenem 1 gm in 100 mls @ 200 mls/hr 10/07/24 21:00 10/09/24 05:21 IVPB 200 mls/hr Q8HR ISIDRO Administration Levetiracetam 500 mg 10/06/24 21:00 10/08/24 21:20 Levetiracetam 500 Mg Tablet PO 500 mg Q12HR ISIDRO Administration Lidocaine 1 patch 10/07/24 09:00 10/08/24 10:06 Lidocaine 5% Patch TOPICAL 1 patch DAILY ISIDRO Administration Lorazepam 0.5 mg 10/06/24 20:44 Lorazepam (*Crx) 0.5 Mg Tablet PO DAILY PRN Anxiety Metoprolol Succinate 25 mg 10/07/24 09:00 10/08/24 10:05 Metoprolol Succinate Ext Rel 25 Mg Tabcr PO 25 mg DAILY ISIDRO Administration Rosuvastatin Calcium 40 mg 10/07/24 09:00 10/08/24 10:05 Rosuvastatin 20 Mg Tablet PO 40 mg DAILY ISIDRO Administration Trazodone HCl 50 mg 10/06/24 21:00 10/08/24 21:21 Trazodone Hcl 50 Mg Tablet PO 50 mg HS ISIDRO Administration Radiology Results: ITS Impressions Abdomen/Pelvis CT 10/06/24 11:28 IMPRESSION: 1. Mild left hydronephrosis and hydroureter. 2. 2 mm nonobstructing left kidney stone. Labs Labs: Laboratory Results - last 24 hr 10/08/24 09:04 WBC 5.3 RBC 4.11 L Hgb 12.6 L Hct 37.8 L MCV 92.0 MCH 30.7 MCHC 33.3 RDW 13.1 Plt Count 192 MPV 9.2 Immature Gran % (Auto) 0.2 Neut % (Auto) 65.8 Lymph % (Auto) 18.0 L [place] % (Auto) 12.0 H Eos % (Auto) 3.6 Baso % (Auto) 0.4 Lymph # (Auto) 0.96 [place] # (Auto) 0.6 Eos # (Auto) 0.2 Baso # (Auto) 0.0 Abs Immat Gran (auto) 0.01 Absolute Neuts (auto) 3.5 Absolute Nucleated RBC 0.000 Nucleated RBC % 0.0 Sodium 136 L Potassium 3.7 Chloride 105 Carbon Dioxide 29 Anion Gap 2 L BUN 18 Creatinine 0.80 Estim Creat Clear Calc 76 Estimated GFR > 60 Glucose 117 H Calcium 8.9 Total Bilirubin 0.4 AST 27 ALT 21 Alkaline Phosphatase 59 Total Protein 7.0 Albumin 3.5
[2024-10-09 08:52] LABS: Alanine Aminotransferase 27 U/L (6-50); Albumin Level 3.4 g/dL (3.5-5.1); Alkaline Phosphatase 60 U/L (38-126); Anion Gap 0 mmol/L (4-12); Aspartate Amino Transferase 29 U/L (17-59); Bilirubin,Total 0.4 mg/dL (0.2-1.3); Blood Urea Nitrogen 17 mg/dL (9-20); Calcium 8.7 mg/dL (8.4-10.2); Carbon Dioxide 28 mmol/L (22-30); Chloride 105 mmol/L (98-107); Estimated CRCL calculation 77 ml/min; Estimated Glomerular Filt Rate > 60; Glucose 115 mg/dL (65-110); Sodium 133 mmol/L (137-145)
[2024-10-09 09:04] LABS: Basophils Percent Auto 0.2 % (0.2-1.2); Eosinophils Absolute Auto 0.2 K/mm3 (0-0.3); Eosinophils Percent Auto 4.4 % (0-4.4); Hematocrit 37.1 % (42.0-52.0); Hemoglobin 11.9 g/dL (14.0-18.0); Immature Granulocyte Absolute 0.01 K/mm3 (0.00-0.031); Immature Granulocyte Percent A 0.2 % (0-0.5); Lymphocytes Absolute Auto 1.18 K/mm3 (0.9-3.2); Lymphocytes Percent Auto 27.4 % (18.3-44.2); Mean Corpuscular HGB Conc 32.1 g/dl (32-36); Mean Corpuscular Hemoglobin 29.9 pg (26-34); Mean Corpuscular Volume 93.2 fl (80-100); Mean Platelet Volume 9.3 fl (7.4-10.4); Monocytes Absolute Auto 0.7 K/mm3 (0.1-0.6); Monocytes Percent Auto 15.3 % (2.6-8.5); Neutrophils Absolute Auto 2.3 K/mm3 (1.3-6.7); Neutrophils Percent Auto 52.5 % (45.5-73.1); Platelet Count Result 204 k/mm3 (150-375); Red Blood Count 3.98 M/mm3 (4.6-6.20); Red Cell Distribution Width 12.8 % (11.5-14.5); White Blood Count 4.3 K/mm3 (4.5-10.0)
--- NOTE | 2024-10-09 09:08 | P.DS_ITS ---
DS: Admitting Diagnosis Discharge Date 10/09/24 Admitting Diagnosis Hematuria left renal stone hydroureteronephrosis hypertension seizure dementia DS: Discharge Diagnosis Discharge Diagnosis (1) Hematuria: Code(s): R31.9 - Hematuria, unspecified Status: Acute (2) Left renal stone: Code(s): N20.0 - Calculus of kidney Status: Acute (3) Hydroureteronephrosis: Code(s): N13.30 - Unspecified hydronephrosis Status: Acute (4) Seizure: Code(s): R56.9 - Unspecified convulsions Status: Acute DS: Summary Hospital Course Reason for hospitalization: Hematuria left renal stone hydroureteronephrosis hypertension seizure dementia Hospital Course: This is a 69-year-old male who presented to the hospital on 10/06/2024 with hematuria. Workup in the hospital included abdomen/pelvis CT which showed mild left hydronephrosis and hydroureter, 2 mm nonobstructing left kidney stone. Initial labs showed a normal white blood cell count of 8.1, hemoglobin 13.1, s odium 135. UA was obtained and showed 1+ urine protein, 3+ urine blood, trace leukocytes, greater than 100 urine RBC, 11-20 urine WBC. Urine culture was obtained and is pending. Previous culture from 12/14/2023 was reviewed and shown Proteus mirabilis which was resistant to Cipro and Macrobid otherwise pansensitive. EKG showed atrial tachycardia with a rate of 130, QTC 439. Patient was given IV fluids and meropenem while in the ED. urology consulted and put patient on finasteride. CBI was weaned off and urine has remained clear with holding his aspirin and plavix. Catheter was removed today. He is stable for discharge at this time. He will need to follow up with Urology in 2 weeks. UTI was ruled out with negative culture Final diagnosis: Hematuria, hydroureteronephrosis Status at Discharge Cognitive/behavioral status at discharge: Alert and oriented x1 Functional status at discharge: wheelchair bound Overall status at discharge: patient is progressing back to baseline Time Spent with Patient Time attestation: Total time spent providing and/or coordinating discharge services: Time spent: Greater than 30 minutes Exam Narrative: General: In no acute distress Cardiac: Normal S1 and S2. No murmur, gallops or friction rubs, peripheral pulses intact. Respiratory: Lungs clear to auscultation, no adventitious lung sounds, currently on room air Gastrointestinal: soft, non-distended, non-tender, normoactive bowel sounds. : martinez catheter clear yellow--will discontinue Neuro: Alert and oriented x1, cranial nerves intact, no neuro deficits. DS: Data Data Completed and Pending Completed studies during hospitalization: Abdomen/Pelvis CT Pending studies at discharge: None Labs on day of discharge: Labs from last 24 hours 10/09/24 10/08/24 08:26 09:04 WBC Pending 5.3 RBC Pending 4.11 L Hgb Pending 12.6 L Hct Pending 37.8 L MCV Pending 92.0 MCH Pending 30.7 MCHC Pending 33.3 RDW Pending 13.1 Plt Count Pending 192 MPV Pending 9.2 Immature Gran % (Auto) Pending 0.2 Neut % (Auto) Pending 65.8 Lymph % (Auto) Pending 18.0 L [place] % (Auto) Pending 12.0 H Eos % (Auto) Pending 3.6 Baso % (Auto) Pending 0.4 Lymph # (Auto) Pending 0.96 [place] # (Auto) Pending 0.6 Eos # (Auto) Pending 0.2 Baso # (Auto) Pending 0.0 Abs Immat Gran (auto) Pending 0.01 Absolute Neuts (auto) Pending 3.5 Absolute Nucleated RBC Pending 0.000 Nucleated RBC % Pending 0.0 Sodium 133 L 136 L Potassium 4.0 3.7 Chloride 105 105 Carbon Dioxide 28 29 Anion Gap 0 L 2 L BUN 17 18 Creatinine 0.80 0.80 Estim Creat Clear Calc 77 76 Estimated GFR > 60 > 60 Glucose 115 H 117 H Calcium 8.7 8.9 Total Bilirubin 0.4 0.4 AST 29 27 ALT 27 21 Alkaline Phosphatase 60 59 Total Protein 7.0 7.0 Albumin 3.4 L 3.5 Procedures/Treatments: None Discharge Plan Discharge Attending physician on discharge: Camelia Osei Consulting providers: Ortiz Smith Discharging Clinician: Emani Mata Anticipated Discharge Date/Time: 10/09/24 08:54 Patient Disposition: NH Long-Term/Asst Living Activity: as tolerated Diet: as tolerated and regular Discharge Instructions: * Follow up with primary care doctor and discuss stopping your plavix and aspirin considering your ongoing problem with hematuria. The hematuria will likely reoccur if continued. May have to weigh the risk versus the benefit of these medications. * Stop Lovenox as this too can contribute to your hematuria * Your started on finasteride to shrink your prostate * Follow-up with Urology in 2 weeks. Patient Instructions: Hematuria (ED) Patient Language: Italian Stand Alone Forms: General Discharge Information, Residential Discharge Follow-up/Referrals: Ortiz Smith MD [Physician] - 2 Weeks Discharge Medications: New finasteride 5 mg tablet 5 mg PO DAILY Qty: 30 0RF Continued acetaminophen 325 mg Tablet 650 mg PO Q4H PRN (Reason: Pain) citalopram [Celexa] 20 mg Tablet 20 mg PO DAILY metoprolol succinate 25 mg Tablet Extended Release 24 Hr 25 mg PO DAILY ergocalciferol (vitamin D2) [Drisdol] 1,250 mcg (50,000 unit) Capsule 1,250 mcg PO WEEKLY Rx Instructions: on Saturday rosuvastatin 40 mg Tablet 40 mg PO DAILY lorazepam 0.5 mg tablet 0.5 mg PO DAILY PRN (Reason: Anxiety) Qty: 5 0RF trazodone 50 mg tablet 50 mg PO HS levetiracetam [Keppra] 500 mg Tablet 500 mg PO Q12HR Qty: 60 0RF lidocaine 5 % adhesive patch,medicated 1 patch topical DAILY Qty: 30 0RF Rx Instructions: leave on most painful area for up to 12 hrs Held clopidogrel 75 mg Tablet 75 mg PO DAILY Hold Instructions: Resume on 10/16/24. Speak to your doctor about discontinuing this medication due to your ongoing hematuria aspirin 81 mg Tablet,Delayed Release (Dr/Ec) 81 mg PO QAM Qty: 30 0RF Hold Instructions: Resume on 10/16/24. Speak to your primary care doctor if this is safe to restart considering your hematuria Discontinued enoxaparin 40 mg/0.4 mL Syringe 40 mg SUBCUT DAILY Date of admission: 10/06/24 13:47 Primary Care Provider: Jozef France Admitting Provider: Camelia Osei Attending physician on admission: Emani Mata Condition: Improved Quality VTE Prophylaxis VTE prophylaxis: mechanical ordered Hospitalist MIPS Heart Failure (Exclusion) Patient has history of Heart Transplant or Left Ventricular Assistive Device?: No IF YES, STOP HERE Heart Failure (Qualifier) Patient has current or prior documentation of LVEF less than or equal to 40%, or mod/servere depressed LVSF?: No IF NO, STOP HERE
[2024-10-09] MEDS: levETIRAcetam 500 MG TABLET PO ×2 (09:12→20:27)
[2024-10-09] MEDS: ROSUVASTATIN 20 MG TABLET 40 MG PO (09:13)
[2024-10-09] MEDS: CITALOPRAM HYDROBROMIDE 20 MG TABLET PO (09:13)
[2024-10-09] MEDS: METOPROLOL SUCCINATE EXT REL 25 MG TABCR PO (09:13)
[2024-10-09] MEDS: traZODone HCL 50 MG TABLET PO (20:28)
--- NOTE | 2024-10-09 22:16 | PC.NURSE ---
Called [facility] to set up transfer to [facility]. ETA given of 0600 (10/10). Trip number [phone]
[2024-10-09] MEDS: ACETAMINOPHEN 325 MG TABLET 650 MG PO (22:26)
--- NOTE | 2024-10-10 00:30 | PC.NURSE ---
[facility] called to notify that transport for the patient to [facility] was delayed until morning of 10/10/24 due to high volume of requests and lack of staffing. This nurse will continue to monitor patient for rest of shift.
[2024-10-10 02:23] VITALS: BP 106/68; PULSE 67; RESP 16; TEMP 36.8; O2SAT 98
[2024-10-10 06:59] VITALS: BP 117/64; PULSE 63; RESP 14; TEMP 36.7; O2SAT 99
--- NOTE | 2024-10-10 07:52 | PC.NURSE ---
Pt's son, Alessandro, called and updated that the pt's ambulance ETA was pushed back until this morning. Will call Alessandro when the pt leaves via ambulance.
[2024-10-10 08:48] VITALS: PULSE 96
[2024-10-10] MEDS: CITALOPRAM HYDROBROMIDE 20 MG TABLET PO (08:48)
[2024-10-10] MEDS: ROSUVASTATIN 20 MG TABLET 40 MG PO (08:48)
[2024-10-10] MEDS: levETIRAcetam 500 MG TABLET PO (08:48)
[2024-10-10] MEDS: METOPROLOL SUCCINATE EXT REL 25 MG TABCR PO (08:48)
== END 2024-10-10 09:40 | DRG 694 ==
LOC: ANHED 09:56 → ANH3MEDSUR 14:50 → ANH2MED 15:35
PROVIDERS: Physician Assistant; Admitting Provider Internal Medicine; Emergency Provider Student in an Organized Health Care Education/Training Program; PCP Hospitalist; Visit Provider Nurse Practitioner Acute Care
DX: N13.2 Hydronephrosis with renal and ureteral calculous obstruction (principal); I47.19 Other supraventricular tachycardia; N40.0 Benign prostatic hyperplasia without lower urinary tract symptoms; R31.0 Gross hematuria; E78.5 Hyperlipidemia, unspecified; E55.9 Vitamin D deficiency, unspecified; F02.80 Dementia in other diseases classified elsewhere, unspecified severity, without behavioral disturbance, psychotic disturbance, mood disturbance, and anxiety; F41.9 Anxiety disorder, unspecified; G40.909 Epilepsy, unspecified, not intractable, without status epilepticus; G30.9 Alzheimer's disease, unspecified; I10 Essential (primary) hypertension; M06.9 Rheumatoid arthritis, unspecified; Z66 Do not resuscitate; Z86.73 Personal history of transient ischemic attack (TIA), and cerebral infarction without residual deficits; Z79.82 Long term (current) use of aspirin; Z79.02 Long term (current) use of antithrombotics/antiplatelets
CPT/HCPCS: 36415; 74177; 80048; 80053; 81001; 83735; 85025; 85027; 85610; 85730; 86850; 86900; 86901; 87086; 93005; 96361; 96365; 99285; A9270; J0696; J2185; J3010; J7120; Q9967